=== PATIENT | male | born 1940 | race Caucasian/White ===

== ENCOUNTER 2016-05-08 11:54 | Inpatient (IN) | payer MEDICARE ==
[2016-05-08] MEDS ORDERED: SODIUM CHLORIDE 0.9% 1,000 ML IV STA ×2 (12:52→15:09)
--- NOTE | 2016-05-08 12:58 | ED ---
Weakness HPI - General Chief complaint: Weakness Stated complaint: DIZZINESSS, HYPERGLYCEMIA, POSS DEHYDRATION Time Seen by Provider: 05/08/16 12:15 Source: patient, family, RN notes reviewed Mode of arrival: wheelchair - History of Present Illness Initial comments: Is a 75-year-old male with a history of hypertension and heart disease and diabetes who states he's felt weak and dizzy last couple days. Decreased oral intake. He denies any fevers chills or sweats denies any chest pain any sore throat rhinorrhea earaches cough or phlegm production. No dysuria no hematuria he has had chills he states MD Complaint: generalized weakness - Related Data Home Medications Medication Instructions Recorded Confirmed Atorvastatin [Lipitor] 40 mg PO DAILY 01/18/16 05/08/16 Clopidogrel [Plavix] 75 mg PO DAILY 01/18/16 05/08/16 Folic Acid 1 mg PO DAILY 01/18/16 05/08/16 Levothyroxine Sodium [Synthroid] 75 mcg PO DAILY 01/18/16 05/08/16 Lisinopril [Zestril] 20 mg PO BID 01/18/16 05/08/16 Metoprolol Tartrate [Lopressor] 25 mg PO DAILY 01/18/16 05/08/16 Tamsulosin HCl [Flomax] 0.4 mg PO DAILY 01/18/16 05/08/16 glipiZIDE [Glucotrol] 5 mg PO DAILY 01/18/16 05/08/16 metFORMIN HCL 1,000 mg PO BID 01/18/16 05/08/16 Furosemide [Lasix] 40 mg PO DAILY 05/08/16 05/08/16 Potassium Chloride [Klor-Con 10] 10 meq PO DAILY 05/08/16 05/08/16 Previous Rx's Medication Instructions Recorded Magnesium 200 mg PO DAILY #14 tablet 01/18/16 Allergies Allergy/AdvReac Type Severity Reaction Status Date / Time No Known Allergies Allergy Verified 05/08/16 12:20 Review of Systems ROS Statement: Those systems with pertinent positive or pertinent negative responses have been documented in the HPI. ROS Other: All systems not noted in ROS Statement are negative. Past Medical History Past Medical History: Diabetes Mellitus, Hypertension Past Surgical History: Coronary Bypass/CABG Additional Past Surgical History / Comment(s): brain aneursym repair Past Psychological History: No Psychological Hx Reported Smoking Status: Never smoker Past Alcohol Use History: None Reported Past Drug Use History: None Reported General Exam - General Exam Comments Initial Comments: This is a well-developed well-nourished awake alert oriented 3 male General appearance: alert, in no apparent distress Head exam: Present: atraumatic, normocephalic, normal inspection Eye exam: Present: normal appearance, PERRL, EOMI. Absent: scleral icterus, conjunctival injection, periorbital swelling ENT exam: Present: mucous membranes dry Neck exam: Present: normal inspection. Absent: tenderness, meningismus, lymphadenopathy Respiratory exam: Present: normal lung sounds bilaterally. Absent: respiratory distress, wheezes, rales, rhonchi, stridor Cardiovascular Exam: Present: normal rhythm, tachycardia, normal heart sounds. Absent: systolic murmur, diastolic murmur, rubs, gallop, clicks GI/Abdominal exam: Present: soft, normal bowel sounds. Absent: distended, tenderness, guarding, rebound, rigid Extremities exam: Present: normal inspection, full ROM, normal capillary refill. Absent: tenderness, pedal edema, joint swelling, calf tenderness Back exam: Present: normal inspection Neurological exam: Present: alert, oriented X3, CN II-XII intact Psychiatric exam: Present: normal affect, normal mood Skin exam: Present: warm, dry, intact, normal color. Absent: rash Course Vital Signs 05/08/16 05/08/16 11:58 15:36 Temperature 96.9 F L Pulse Rate 101 H 79 Respiratory 18 18 Rate Blood Pressure 97/59 108/72 O2 Sat by Pulse 97 99 Oximetry - Reevaluation(s) Reevaluation #1: 05/08/16 17:35 Reevaluation patient several occasions reveals he still dizzy and weak. EKG Findings - EKG Results: EKG: interpreted by ERMD (Sinus rhythm rate 96 para 156 QRS duration 124 QT/QTC 394/497 her bundle-branch block left anterior fascicular block evidence of LVH) Medical Decision Making - Medical Decision Making Patient remains dizzy week with evidence of renal insufficiency. He hasn't didn 't get attempts at ambulation he was not successful he gets dizzy just sitting up in bed. I did discuss the findings with him and his family as well as with Dr. Nicholson. Patient be admitted for IV fluids and further consideration renal insufficiency. - Lab Data Result diagrams: 05/08/16 12:39 05/08/16 12:39 Lab Results 05/08/16 05/08/16 05/08/16 Range/Units 12:28 12:39 12:39 WBC 16.2 H (3.8-10.6) k/uL RBC 5.16 (4.30-5.90) m/uL Hgb 16.0 (13.0-17.5) gm/dL Hct 48.3 (39.0-53.0) % MCV 93.6 (80.0-100.0) fL MCH 31.0 (25.0-35.0) pg MCHC 33.1 (31.0-37.0) g/dL RDW 13.7 (11.5-15.5) % Plt Count 310 (150-450) k/uL Neutrophils % 80 % Lymphocytes % 12 % Monocytes % 5 % Eosinophils % 1 % Basophils % 1 % Neutrophils # 12.9 H (1.3-7.7) k/uL Lymphocytes # 2.0 (1.0-4.8) k/uL Monocytes # 0.9 (0-1.0) k/uL Eosinophils # 0.1 (0-0.7) k/uL Basophils # 0.2 (0-0.2) k/uL PT (9.0-12.0) sec INR (<1.1) APTT (22.0-30.0) sec Sodium (137-145) mmol/L Potassium (3.5-5.1) mmol/L Chloride (98-107) mmol/L Carbon Dioxide (22-30) mmol/L Anion Gap mmol/L BUN (9-20) mg/dL Creatinine (0.66-1.25) mg/dL Est GFR (MDRD) Af Amer (>60 ml/min/1.73 sqM) Est GFR (MDRD) Non-Af (>60 ml/min/1.73 sqM) Glucose (74-99) mg/dL POC Glucose (mg/dL) 174 H (75-99) mg/dL POC Glu Research Technician ID Kerri Addison Calcium (8.4-10.2) mg/dL Magnesium (1.6-2.3) mg/dL Total Bilirubin (0.2-1.3) mg/dL AST (17-59) U/L ALT (21-72) U/L Alkaline Phosphatase (38-126) U/L Total Creatine Kinase 66 (55-170) U/L CK-MB (CK-2) 0.6 (0.0-2.4) ng/mL CK-MB (CK-2) Rel Index 0.9 Troponin I 0.016 (0.000-0.034) ng/mL Total Protein (6.3-8.2) g/dL Albumin (3.5-5.0) g/dL Urine Color Urine Appearance (Clear) Urine pH (5.0-8.0) Ur Specific [place] (1.001-1.035) Urine Protein (Negative) Urine Glucose (UA) (Negative) Urine Ketones (Negative) Urine Blood (Negative) Urine Nitrate (Negative) Urine Bilirubin (Negative) Urine Urobilinogen (<2.0) mg/dL Ur Leukocyte Esterase (Negative) Acetone, Qual (Negative) 05/08/16 05/08/16 05/08/16 Range/Units 12:39 12:39 16:12 WBC (3.8-10.6) k/uL RBC (4.30-5.90) m/uL Hgb (13.0-17.5) gm/dL Hct (39.0-53.0) % MCV (80.0-100.0) fL MCH (25.0-35.0) pg MCHC (31.0-37.0) g/dL RDW (11.5-15.5) % Plt Count (150-450) k/uL Neutrophils % % Lymphocytes % % Monocytes % % Eosinophils % % Basophils % % Neutrophils # (1.3-7.7) k/uL Lymphocytes # (1.0-4.8) k/uL Monocytes # (0-1.0) k/uL Eosinophils # (0-0.7) k/uL Basophils # (0-0.2) k/uL PT 11.1 (9.0-12.0) sec INR 1.1 (<1.1) APTT 22.9 (22.0-30.0) sec Sodium 142 (137-145) mmol/L Potassium 4.4 (3.5-5.1) mmol/L Chloride 101 (98-107) mmol/L Carbon Dioxide 22 (22-30) mmol/L Anion Gap 19 mmol/L BUN 41 H (9-20) mg/dL Creatinine 2.30 H (0.66-1.25) mg/dL Est GFR (MDRD) Af Amer 34 (>60 ml/min/1.73 sqM) Est GFR (MDRD) Non-Af 28 (>60 ml/min/1.73 sqM) Glucose 176 H (74-99) mg/dL POC Glucose (mg/dL) (75-99) mg/dL POC Glu Research Technician ID Calcium 10.1 (8.4-10.2) mg/dL Magnesium 2.1 (1.6-2.3) mg/dL Total Bilirubin 1.3 (0.2-1.3) mg/dL AST 25 (17-59) U/L ALT 42 (21-72) U/L Alkaline Phosphatase 143 H (38-126) U/L Total Creatine Kinase (55-170) U/L CK-MB (CK-2) (0.0-2.4) ng/mL CK-MB (CK-2) Rel Index Troponin I (0.000-0.034) ng/mL Total Protein 8.3 H (6.3-8.2) g/dL Albumin 4.7 (3.5-5.0) g/dL Urine Color Yellow Urine Appearance Clear (Clear) Urine pH 5.0 (5.0-8.0) Ur Specific [place] 1.010 (1.001-1.035) Urine Protein Negative (Negative) Urine Glucose (UA) Negative (Negative) Urine Ketones Negative (Negative) Urine Blood Negative (Negative) Urine Nitrate Negative (Negative) Urine Bilirubin Negative (Negative) Urine Urobilinogen <2.0 (<2.0) mg/dL Ur Leukocyte Esterase Negative (Negative) Acetone, Qual Negative (Negative) - Radiology Data Radiology results: report reviewed (X-rays are nonspecific no evidence of acute findings.), image reviewed Disposition Clinical Impression: Acute renal insufficiency, Dehydration, Failure to thrive in adult, Dizziness Disposition: ADMITTED IP TO THIS [facility] Condition: Stable
[2016-05-08 13:09] LABS: Basophils # (A) 0.2 k/uL (0-0.2); Basophils % (A) 1 %; CH 32.4; CHCM 34.8; Eosinophils # (A) 0.1 k/uL (0-0.7); Eosinophils % (A) 1 %; HCT 48.3 % (39.0-53.0); HDW 3.04; Luc # (Auto) 0.13; Luc % (Auto) 1; Lymphocytes % (A) 12 %; MCHC 33.1 g/dL (31.0-37.0); MCV 93.6 fL (80.0-100.0); Mean Platelet Volume 8.6; Monocytes # (A) 0.9 k/uL (0-1.0); Monocytes % (A) 5 %; Neutrophils # (A) 12.9 k/uL (1.3-7.7); Neutrophils % (A) 80 %; RBC 5.16 m/uL (4.30-5.90); RDW 13.7 % (11.5-15.5); WBC 16.2 k/uL (3.8-10.6); WBC (Perox) 15.61
[2016-05-08 13:17] LABS: INR 1.1 (<1.1); Partial Thromboplastin Time 22.9 sec (22.0-30.0); Prothrombin Time 11.1 sec (9.0-12.0)
[2016-05-08 13:20] LABS: ALT 42 U/L (21-72); AST 25 U/L (17-59); Alkaline Phosphatase 143 U/L (38-126); Anion Gap 19 mmol/L; Blood Urea Nitrogen 41 mg/dL (9-20); Calcium 10.1 mg/dL (8.4-10.2); Carbon Dioxide 22 mmol/L (22-30); Chloride 101 mmol/L (98-107); Glucose 176 mg/dL (74-99); Magnesium 2.1 mg/dL (1.6-2.3); Non-African American GFR(MDRD) 28 (>60 ml/min/1.73 sqM); Potassium 4.4 mmol/L (3.5-5.1); Sodium 142 mmol/L (137-145); Total Bilirubin 1.3 mg/dL (0.2-1.3); Total Protein 8.3 g/dL (6.3-8.2)
--- NOTE | 2016-05-08 13:22 | XR ---
EXAMINATION TYPE: XR chest 2V DATE OF EXAM: 05/08/2016 1:13 PM COMPARISON: NONE HISTORY: Weakness FINDINGS: The lungs are clear and there is no pneumothorax, pleural effusion, or focal pneumonia. Hypertrophic change of the spine noted. Arthropathy of the shoulders. Postsurgical change involving the mediastin um. Heart size is mildly prominent. Surgical clips in the abdomen. Underlying COPD suggested. IMPRESSION: 1. No acute process.
[2016-05-08 13:45] LABS: Creatine Kinase MB 0.6 ng/mL (0.0-2.4); Troponin I 0.016 ng/mL (0.000-0.034)
[2016-05-08 14:52] LABS: Glucose,Whole Blood 174 mg/dL (75-99)
[2016-05-08 16:23] LABS: Appearance,Urine Clear (Clear); Bilirubin,Urine Negative (Negative); Glucose,Urine (UA) Negative (Negative); Ketones,Urine Negative (Negative); Leukocyte Esterase,Urine Negative (Negative); Nitrite,Urine Negative (Negative); Protein,Urine Negative (Negative); UA Billing (MACRO vs. MICRO) CHEM; Urobilinogen,Urine <2.0 mg/dL (<2.0)
[2016-05-08] MEDS ORDERED: NALOXONE 0.4 MG/ML 1 ML VIAL IV PRN (17:38)
[2016-05-08 19:56] VITALS: BMI 28.0
[2016-05-08 20:40] LABS: Glucose,Whole Blood 120 mg/dL (75-99)
[2016-05-08] MEDS: INSULIN LISPRO (humaLOG) 300 UNIT/3 ML VIAL SQ SCH (21:14)
[2016-05-08] MEDS: metFORMIN 500 MG TAB PO SCH (21:15)
[2016-05-09] MEDS: LEVOTHYROXINE 75 MCG TAB PO SCH (06:32)
[2016-05-09 06:57] LABS: Glucose,Whole Blood 127 mg/dL (75-99)
[2016-05-09] MEDS: INSULIN LISPRO (humaLOG) 300 UNIT/3 ML VIAL SQ SCH ×4 (07:30→21:22)
[2016-05-09] MEDS: glipiZIDE 5 MG TAB PO SCH (07:51)
[2016-05-09] MEDS: MAGNESIUM OXIDE 250 MG TAB PO SCH (07:51)
[2016-05-09] MEDS: CLOPIDOGREL 75 MG TAB PO SCH (07:51)
[2016-05-09] MEDS: POTASSIUM CHLORIDE ER 10 MEQ TAB.ER.PRT PO SCH (07:51)
[2016-05-09] MEDS: TAMSULOSIN 0.4 MG CAP.ER.24H PO SCH (07:51)
[2016-05-09] MEDS: FOLIC ACID 1 MG TAB PO SCH (07:51)
[2016-05-09] MEDS: metFORMIN 500 MG TAB PO SCH ×2 (07:51→19:09)
[2016-05-09] MEDS: ATORVASTATIN 40 MG TAB PO SCH (07:51)
[2016-05-09 09:23] LABS: Basophils % (A) 0 %; CHCM 34.3; Eosinophils # (A) 0.2 k/uL (0-0.7); Eosinophils % (A) 2 %; HCT 42.8 % (39.0-53.0); HDW 3.02; HGB 14.3 gm/dL (13.0-17.5); Luc # (Auto) 0.08; Luc % (Auto) 1; Lymphocytes # (A) 1.3 k/uL (1.0-4.8); Lymphocytes % (A) 14 %; MCH 31.3 pg (25.0-35.0); MCHC 33.3 g/dL (31.0-37.0); MCV 93.9 fL (80.0-100.0); Mean Platelet Volume 7.5; Monocytes # (A) 0.4 k/uL (0-1.0); Monocytes % (A) 4 %; Neutrophils # (A) 7.3 k/uL (1.3-7.7); Neutrophils % (A) 79 %; RBC 4.56 m/uL (4.30-5.90); RDW 13.6 % (11.5-15.5); WBC 9.2 k/uL (3.8-10.6); WBC (Perox) 9.48
[2016-05-09 09:37] LABS: Anion Gap 11 mmol/L; Blood Urea Nitrogen 33 mg/dL (9-20); Calcium 8.7 mg/dL (8.4-10.2); Carbon Dioxide 23 mmol/L (22-30); Chloride 107 mmol/L (98-107); Glucose 154 mg/dL (74-99); Non-African American GFR(MDRD) 51 (>60 ml/min/1.73 sqM); Potassium 4.3 mmol/L (3.5-5.1); Sodium 141 mmol/L (137-145)
[2016-05-09] MEDS ORDERED: SODIUM CHLORIDE 0.9% 250 ML IV ONE (11:26)
[2016-05-09] MEDS: METOPROLOL TARTRATE 25 MG TAB PO SCH (11:32)
[2016-05-09] MEDS: SODIUM CHLORIDE 0.9% 1,000 ML IV SCH (11:35)
[2016-05-09 11:57] LABS: Glucose,Whole Blood 78 mg/dL (75-99)
[2016-05-09 12:21] LABS: Hemoglobin A1C 6.2 % (4.2-6.1)
[2016-05-09 17:21] LABS: Glucose,Whole Blood 69 mg/dL (75-99)
--- NOTE | 2016-05-09 17:21 | P.HPIM ---
History of Present Illness H&P Date: 05/09/16 Chief Complaint: Weakness and dizziness Patient is 75-year-old male with medical history significant for type 2 diabetes mellitus, coronary artery disease, hyperlipidemia, hypothyroidism, BPH, and hypertension presenting to the emergency department with complaints of weakness and dizziness 3 days. Admission lab work with evidence of acute renal failure and dehydration supported by positive orthostatic hypotension. Patient was given 1 L of IV fluids and admitted to the observation unit for IV hydration. Upon examination, patient continues to complain of dizziness and lightheadedness when going from a supine to sitting position. Patient states he feels very weak. Denies chills, nausea, vomiting, shortness of breath, chest pain, or abdominal pain. Denies constipation or diarrhea. Labs this morning with improvement in renal function. Afebrile. Past Medical History Past Medical History: Diabetes Mellitus, Hypertension History of Any Multi-Drug Resistant Organisms: None Reported Past Surgical History: Coronary Bypass/CABG Additional Past Surgical History / Comment(s): brain aneursym repair Past Psychological History: No Psychological Hx Reported Smoking Status: Never smoker Past Alcohol Use History: None Reported Past Drug Use History: None Reported Medications and Allergies Home Medications Medication Instructions Recorded Confirmed Type Atorvastatin [Lipitor] 40 mg PO DAILY 01/18/16 05/08/16 History Clopidogrel [Plavix] 75 mg PO DAILY 01/18/16 05/08/16 History Folic Acid 1 mg PO DAILY 01/18/16 05/08/16 History Levothyroxine Sodium [Synthroid] 75 mcg PO DAILY 01/18/16 05/08/16 History Lisinopril [Zestril] 20 mg PO BID 01/18/16 05/08/16 History Metoprolol Tartrate [Lopressor] 25 mg PO DAILY 01/18/16 05/08/16 History Tamsulosin HCl [Flomax] 0.4 mg PO DAILY 01/18/16 05/08/16 History glipiZIDE [Glucotrol] 5 mg PO DAILY 01/18/16 05/08/16 History metFORMIN HCL 1,000 mg PO BID 01/18/16 05/08/16 History Furosemide [Lasix] 40 mg PO DAILY 05/08/16 05/08/16 History Potassium Chloride [Klor-Con 10] 10 meq PO DAILY 05/08/16 05/08/16 History Allergies Allergy/AdvReac Type Severity Reaction Status Date / Time No Known Allergies Allergy Verified 05/08/16 12:20 Physical Exam Vitals: Vital Signs Temp Pulse Pulse Pulse Pulse Pulse Pulse 05/09/16 16:00 84 97 90 106 H 83 05/09/16 15:37 97.6 F 84 05/09/16 12:00 97.1 F L 97 90 106 H 83 05/09/16 07:59 97 05/09/16 07:48 97.6 F 97 05/09/16 04:00 97.6 F 87 05/09/16 00:00 05/08/16 20:00 05/08/16 19:47 97.8 F 96 05/08/16 18:28 97.7 F 89 05/08/16 17:50 98.7 F 79 Resp BP BP BP BP BP BP 05/09/16 16:00 16 05/09/16 15:37 16 95/59 05/09/16 12:00 18 105/69 110/66 97/60 05/09/16 07:59 18 05/09/16 07:48 18 92/65 84/56 05/09/16 04:00 16 111/65 05/09/16 00:00 16 05/08/16 20:00 16 05/08/16 19:47 16 94/59 05/08/16 18:28 18 112/62 05/08/16 17:50 18 133/79 Pulse Ox 05/09/16 16:00 05/09/16 15:37 96 05/09/16 12:00 95 05/09/16 07:59 05/09/16 07:48 97 05/09/16 04:00 97 05/09/16 00:00 05/08/16 20:00 05/08/16 19:47 95 05/08/16 18:28 98 05/08/16 17:50 98 Intake and Output 05/09/16 05/09/16 05/09/16 06:59 14:59 22:59 Intake Total 336 Output Total 100 Balance 236 Intake: Oral 336 Output: Urine 100 Other: # Voids 1 1 GENERAL: Pt awake and alert, well-nourished, and in no acute distress. HEAD: Atraumatic, normocephalic. EYES: Pupils equal, round, and reactive to light, extraocular movements intact, sclera anicteric, conjunctiva are normal. ENT: Moist mucous membranes. NECK:Supple without lymphadenopathy or JVD. LUNGS: Breath sounds clear to auscultation bilaterally. No wheezes, rales, or rhonchi. HEART: Heart S1, S2, no S3 or S4. Regular rate and rhythm. No murmurs, rubs or gallops. ABDOMEN: Soft, nontender, nondistended, normoactive bowel sounds. No guarding, no rebound. No masses or organomegaly appreciated. EXTREMITIES: 2+ peripheral pulses. No edema. No calf tenderness. NEUROLOGICAL: Pt oriented x 3. Cranial nerves II through XII grossly intact. Strength and sensation grossly intact. PSYCH: Normal mood, normal affect. SKIN: Warm, dry, intact. Normal turgor. No rashes or lesions. Results CBC & Chem 7: 05/09/16 09:02 05/09/16 09:02 Labs: Abnormal Lab Results - Last 24 Hours (Table) 05/08/16 05/09/16 05/09/16 Range/Units 20:37 06:55 09:02 BUN 33 H (9-20) mg/dL Creatinine 1.37 H (0.66-1.25) mg/dL Glucose 154 H (74-99) mg/dL POC Glucose (mg/dL) 120 H 127 H (75-99) mg/dL Chest x-ray: report reviewed (No acute process.) Thrombosis Risk Factor Assmnt - DVT/VTE Prophylaxis DVT/VTE Prophylaxis: Low risk, early ambulation encouraged - Choose All That Apply Each Risk Factor Represents 2 Points: Age 61-74 years Thrombosis Risk Factor Assessment Total Risk Factor Score: 2 Thrombosis Risk Factor Assessment Level: Low Risk Assessment and Plan Plan: Impression and plan: 1. Dehydration with evidence of acute renal failure, present on admission, improved. 2. Diabetes mellitus, type II. 3. History of hypertension. 4. Coronary artery disease with history of coronary artery bypass grafting. 5. History of brain aneurysm repair. 6. History of hyperlipidemia. 7. History of hypothyroidism. 8. BPH. Continue IV hydration, will give patient a 250 mL normal saline fluid bolus. Orthostatics every shift. Maintain fall precautions. Continue current medications, will hold Lasix, lisinopril, and metoprolol. Consult physical therapy. Repeat CBC and BMP in a.m. The above impression and plan have been discussed and directed by Dr. Carpenter. Fred BANERJEE acting as scribe for Dr. Carpenter.
[2016-05-09 17:24] LABS: Glucose,Whole Blood 77 mg/dL (75-99)
[2016-05-09 20:54] LABS: Glucose,Whole Blood 135 mg/dL (75-99)
[2016-05-10 06:36] LABS: Glucose,Whole Blood 128 mg/dL (75-99)
[2016-05-10] MEDS: LEVOTHYROXINE 75 MCG TAB PO SCH (06:56)
[2016-05-10 08:25] LABS: Anion Gap 10 mmol/L; Blood Urea Nitrogen 21 mg/dL (9-20); Calcium 8.4 mg/dL (8.4-10.2); Carbon Dioxide 21 mmol/L (22-30); Chloride 107 mmol/L (98-107); Glucose 118 mg/dL (74-99); Non-African American GFR(MDRD) >60 (>60 ml/min/1.73 sqM); Sodium 138 mmol/L (137-145)
[2016-05-10 08:29] LABS: Basophils % (A) 0 %; CHCM 34.5; Eosinophils # (A) 0.1 k/uL (0-0.7); Eosinophils % (A) 2 %; HCT 40.4 % (39.0-53.0); HDW 3.04; HGB 13.6 gm/dL (13.0-17.5); Luc # (Auto) 0.11; Luc % (Auto) 1; Lymphocytes # (A) 1.6 k/uL (1.0-4.8); Lymphocytes % (A) 19 %; MCH 31.4 pg (25.0-35.0); MCHC 33.6 g/dL (31.0-37.0); MCV 93.3 fL (80.0-100.0); Mean Platelet Volume 7.9; Monocytes # (A) 0.5 k/uL (0-1.0); Monocytes % (A) 7 %; Neutrophils % (A) 71 %; RBC 4.33 m/uL (4.30-5.90); RDW 13.4 % (11.5-15.5); WBC 8.4 k/uL (3.8-10.6); WBC (Perox) 8.74
[2016-05-10] MEDS: metFORMIN 500 MG TAB PO SCH ×2 (09:05→20:46)
[2016-05-10] MEDS: METOPROLOL TARTRATE 25 MG TAB PO SCH (09:05)
[2016-05-10] MEDS: POTASSIUM CHLORIDE ER 10 MEQ TAB.ER.PRT PO SCH (09:06)
[2016-05-10] MEDS: ATORVASTATIN 40 MG TAB PO SCH (09:06)
[2016-05-10] MEDS: MAGNESIUM OXIDE 250 MG TAB PO SCH (09:06)
[2016-05-10] MEDS: TAMSULOSIN 0.4 MG CAP.ER.24H PO SCH (09:06)
[2016-05-10] MEDS: glipiZIDE 5 MG TAB PO SCH (09:06)
[2016-05-10] MEDS: CLOPIDOGREL 75 MG TAB PO SCH (09:06)
[2016-05-10] MEDS: INSULIN LISPRO (humaLOG) 300 UNIT/3 ML VIAL SQ SCH ×4 (09:06→21:41)
[2016-05-10 12:17] LABS: Glucose,Whole Blood 105 mg/dL (75-99)
[2016-05-10] MEDS: FOLIC ACID 1 MG TAB PO SCH (12:25)
--- NOTE | 2016-05-10 13:04 | P.PN ---
Subjective Principal diagnosis: Acute renal failure Patient is 75-year-old male with medical history significant for type 2 diabetes mellitus, coronary artery disease, hyperlipidemia, hypothyroidism, BPH, and hypertension presenting to the emergency department with complaints of weakness and dizziness 3 days. Admission lab work with evidence of acute renal failure and dehydration supported by positive orthostatic hypotension. Patient was given 1 L of IV fluids and admitted to the observation unit for IV hydration. Upon examination, patient states he feels better than yesterday but continues to complain of weakness and lightheadedness. Denies chills, nausea, vomiting, shortness of breath, chest pain, or abdominal pain. Denies constipation or diarrhea. Patient states his appetite has improved. Objective - Vital Signs Vital signs: Vital Signs Temp 98 F 05/10/16 11:26 Pulse 74 05/10/16 11:26 Resp 18 05/10/16 11:26 BP 114/66 05/10/16 11:26 Pulse Ox 95 05/10/16 11:26 Intake & Output 05/09/16 05/10/16 05/10/16 18:59 06:59 18:59 Intake Total 736 Output Total 475 350 Balance 261 -350 Weight 83.5 kg Intake: Oral 736 Output: Urine 475 350 Other: Voiding Method Urinal # Voids 1 1 1 - Exam GENERAL: Pt awake and alert, well-nourished, and in no acute distress. HEAD: Atraumatic, normocephalic. EYES: Pupils equal, round, and reactive to light, extraocular movements intact, sclera anicteric, conjunctiva are normal. ENT: Moist mucous membranes. NECK:Supple without lymphadenopathy or JVD. LUNGS: Breath sounds clear to auscultation bilaterally. No wheezes, rales, or rhonchi. HEART: Heart S1, S2, no S3 or S4. Regular rate and rhythm. No murmurs, rubs or gallops. ABDOMEN: Soft, nontender, nondistended, normoactive bowel sounds. No guarding, no rebound. No masses or organomegaly appreciated. EXTREMITIES: 2+ peripheral pulses. No edema. No calf tenderness. NEUROLOGICAL: Pt oriented x 3. Cranial nerves II through XII grossly intact. Strength and sensation grossly intact. PSYCH: Normal mood, normal affect. SKIN: Warm, dry, intact. Normal turgor. No rashes or lesions. - Labs CBC & Chem 7: 01/10/17 07:38 05/10/16 07:38 Labs: Abnormal Lab Results - Last 24 Hours (Table) 05/09/16 05/09/16 05/10/16 Range/Units 16:57 20:40 06:31 Carbon Dioxide (22-30) mmol/L BUN (9-20) mg/dL Glucose (74-99) mg/dL POC Glucose (mg/dL) 69 L 135 H 128 H (75-99) mg/dL 05/10/16 05/10/16 Range/Units 07:38 12:11 Carbon Dioxide 21 L (22-30) mmol/L BUN 21 H (9-20) mg/dL Glucose 118 H (74-99) mg/dL POC Glucose (mg/dL) 105 H (75-99) mg/dL Assessment and Plan Plan: Impression and plan: 1. Dehydration with evidence of acute renal failure, present on admission, improved. Orthostatic vitals positive. 2. Diabetes mellitus, type II. 3. History of hypertension. 4. Coronary artery disease with history of coronary artery bypass grafting. 5. History of brain aneurysm repair. 6. History of hyperlipidemia. 7. History of hypothyroidism. 8. BPH. Continue to monitor patient. Continue IV hydration. Continue current medications. Continue orthostatics every shift. Maintain fall precautions. Consult physical therapy. Repeat CBC and BMP in a.m. The above impression and plan have been discussed and directed by Dr. Carpenter. Fred BANERJEE acting as scribe for Dr. Carpenter.
[2016-05-10 17:23] LABS: Glucose,Whole Blood 93 mg/dL (75-99)
[2016-05-10] MEDS: SODIUM CHLORIDE 0.9% 1,000 ML IV SCH ×4 (19:54→21:42)
[2016-05-10] MEDS: FAMOTIDINE 20 MG TAB PO SCH (20:46)
[2016-05-10 21:43] LABS: Glucose,Whole Blood 91 mg/dL (75-99)
[2016-05-11] MEDS: SODIUM CHLORIDE 0.9% 1,000 ML IV SCH ×3 (04:00→13:21)
[2016-05-11] MEDS: LEVOTHYROXINE 75 MCG TAB PO SCH (05:29)
[2016-05-11 07:19] LABS: Glucose,Whole Blood 74 mg/dL (75-99)
[2016-05-11] MEDS: TAMSULOSIN 0.4 MG CAP.ER.24H PO SCH (08:34)
[2016-05-11] MEDS: metFORMIN 500 MG TAB PO SCH ×2 (08:34→17:27)
[2016-05-11] MEDS: CLOPIDOGREL 75 MG TAB PO SCH (08:34)
[2016-05-11] MEDS: POTASSIUM CHLORIDE ER 10 MEQ TAB.ER.PRT PO SCH (08:34)
[2016-05-11] MEDS: ATORVASTATIN 40 MG TAB PO SCH (08:34)
[2016-05-11] MEDS: INSULIN LISPRO (humaLOG) 300 UNIT/3 ML VIAL SQ SCH ×4 (08:34→20:58)
[2016-05-11] MEDS: METOPROLOL TARTRATE 25 MG TAB PO SCH (08:34)
[2016-05-11] MEDS: MAGNESIUM OXIDE 250 MG TAB PO SCH (08:34)
[2016-05-11] MEDS: glipiZIDE 5 MG TAB PO SCH (08:34)
[2016-05-11 11:55] LABS: Glucose,Whole Blood 75 mg/dL (75-99)
[2016-05-11] MEDS: FOLIC ACID 1 MG TAB PO SCH (13:17)
--- NOTE | 2016-05-11 14:42 | P.PN ---
Subjective Principal diagnosis: Acute renal failure Patient is 75-year-old male with medical history significant for type 2 diabetes mellitus, coronary artery disease, hyperlipidemia, hypothyroidism, BPH, and hypertension presenting to the emergency department with complaints of weakness and dizziness 3 days. Admission lab work with evidence of acute renal failure and dehydration supported by positive orthostatic hypotension. Patient was given 1 L of IV fluids and admitted for IV hydration. Upon examination, patient states he feels better than yesterday but continues to complain of weakness and lightheadedness. Denies chills, nausea, vomiting, shortness of breath, chest pain, or abdominal pain. Denies constipation or diarrhea. Patient states his appetite has improved. Objective - Vital Signs Vital signs: Vital Signs Temp 98.7 F 05/11/16 07:00 Pulse 75 05/11/16 07:00 Resp 17 05/11/16 07:00 BP 121/57 05/11/16 07:00 Pulse Ox 99 05/11/16 07:00 Intake & Output 05/10/16 05/11/16 05/11/16 18:59 06:59 18:59 Output Total 100 400 Balance -100 -400 Output: Urine 100 400 Other: Voiding Method Urinal Urinal # Voids 1 1 # Bowel Movements 1 1 - Exam GENERAL: Pt awake and alert, well-nourished, and in no acute distress. HEAD: Atraumatic, normocephalic. EYES: Pupils equal, round, and reactive to light, extraocular movements intact, sclera anicteric, conjunctiva are normal. ENT: Moist mucous membranes. NECK:Supple without lymphadenopathy or JVD. LUNGS: Breath sounds clear to auscultation bilaterally. No wheezes, rales, or rhonchi. HEART: Heart S1, S2, no S3 or S4. Regular rate and rhythm. No murmurs, rubs or gallops. ABDOMEN: Soft, nontender, nondistended, normoactive bowel sounds. No guarding, no rebound. No masses or organomegaly appreciated. EXTREMITIES: 2+ peripheral pulses. No edema. No calf tenderness. NEUROLOGICAL: Pt oriented x 3. Cranial nerves II through XII grossly intact. Strength and sensation grossly intact. PSYCH: Normal mood, normal affect. SKIN: Warm, dry, intact. Normal turgor. No rashes or lesions. - Labs CBC & Chem 7: 05/10/16 07:38 05/10/16 07:38 Labs: Abnormal Lab Results - Last 24 Hours (Table) 05/11/16 Range/Units 07:18 POC Glucose (mg/dL) 74 L (75-99) mg/dL Assessment and Plan Plan: Impression and plan: 1. Dehydration with evidence of acute renal failure, present on admission, resolved. Orthostatic vitals negative. 2. Diabetes mellitus, type II. 3. History of hypertension. 4. Coronary artery disease with history of coronary artery bypass grafting. 5. History of brain aneurysm repair. 6. History of hyperlipidemia. 7. History of hypothyroidism. 8. BPH. Continue to monitor patient. Continue IV hydration. Continue current medications. Maintain fall precautions. Physical therapy has seen and evaluated patient and is recommending home with home care versus ECF. We'll reevaluate in a.m. Repeat CBC and BMP in a.m. The above impression and plan have been discussed and directed by Dr. Carpenter. Fred BANERJEE acting as scribe for Dr. Carpenter.
[2016-05-11 17:09] LABS: Glucose,Whole Blood 59 mg/dL (75-99)
[2016-05-11 17:27] LABS: Glucose,Whole Blood 68 mg/dL (75-99)
[2016-05-11 17:46] LABS: Glucose,Whole Blood 84 mg/dL (75-99)
[2016-05-11] MEDS: FAMOTIDINE 20 MG TAB PO SCH (20:51)
[2016-05-11 20:56] LABS: Glucose,Whole Blood 104 mg/dL (75-99)
[2016-05-12] MEDS: SODIUM CHLORIDE 0.9% 1,000 ML IV SCH ×3 (00:45→06:12)
[2016-05-12] MEDS: LEVOTHYROXINE 75 MCG TAB PO SCH (06:12)
[2016-05-12 07:29] LABS: Glucose,Whole Blood 105 mg/dL (75-99)
[2016-05-12 07:53] VITALS: RESP 19
[2016-05-12] MEDS: INSULIN LISPRO (humaLOG) 300 UNIT/3 ML VIAL SQ SCH ×2 (08:13→14:00)
[2016-05-12] MEDS: glipiZIDE 5 MG TAB PO SCH (08:17)
[2016-05-12] MEDS: TAMSULOSIN 0.4 MG CAP.ER.24H PO SCH (08:17)
[2016-05-12] MEDS: MAGNESIUM OXIDE 250 MG TAB PO SCH (08:17)
[2016-05-12] MEDS: metFORMIN 500 MG TAB PO SCH (08:17)
[2016-05-12] MEDS: METOPROLOL TARTRATE 25 MG TAB PO SCH (08:17)
[2016-05-12] MEDS: POTASSIUM CHLORIDE ER 10 MEQ TAB.ER.PRT PO SCH (08:17)
[2016-05-12] MEDS: CLOPIDOGREL 75 MG TAB PO SCH (08:17)
[2016-05-12] MEDS: ATORVASTATIN 40 MG TAB PO SCH (08:17)
[2016-05-12 08:50] LABS: Basophils % (A) 1 %; CH 32.2; CHCM 35.7; Eosinophils # (A) 0.2 k/uL (0-0.7); Eosinophils % (A) 3 %; HCT 40.2 % (39.0-53.0); HDW 3.12; HGB 13.7 gm/dL (13.0-17.5); Luc # (Auto) 0.09; Luc % (Auto) 1; Lymphocytes # (A) 1.6 k/uL (1.0-4.8); Lymphocytes % (A) 23 %; MCH 30.8 pg (25.0-35.0); MCV 90.6 fL (80.0-100.0); Mean Platelet Volume 7.9; Monocytes # (A) 0.4 k/uL (0-1.0); Monocytes % (A) 6 %; Neutrophils # (A) 4.5 k/uL (1.3-7.7); Neutrophils % (A) 66 %; RBC 4.43 m/uL (4.30-5.90); RDW 13.3 % (11.5-15.5); WBC 6.9 k/uL (3.8-10.6); WBC (Perox) 6.65
[2016-05-12 08:58] LABS: Anion Gap 10 mmol/L; Blood Urea Nitrogen 11 mg/dL (9-20); Calcium 8.6 mg/dL (8.4-10.2); Carbon Dioxide 22 mmol/L (22-30); Chloride 108 mmol/L (98-107); Glucose 101 mg/dL (74-99); Non-African American GFR(MDRD) >60 (>60 ml/min/1.73 sqM); Potassium 4.6 mmol/L (3.5-5.1); Sodium 140 mmol/L (137-145)
[2016-05-12 12:43] LABS: Glucose,Whole Blood 161 mg/dL (75-99)
--- NOTE | 2016-05-12 12:49 | P.DS ---
Providers Date of admission: 05/10/16 15:31 Expected date of discharge: 05/12/16 Attending physician: Alec Carpenter Primary care physician: [facility] Course: Patient is 75-year-old male with medical history significant for type 2 diabetes mellitus, coronary artery disease, hyperlipidemia, hypothyroidism, BPH, and hypertension presenting to the emergency department with complaints of generalized weakness and lightheadedness. Patient was found to have evidence of acute renal failure and dehydration. Patient was evaluated by physical therapy who recommended that patient be discharged home with home care. Patient improved with IV fluids and supportive treatment and was deemed stable for discharge with follow-up in the outpatient setting. Discharge diagnoses: 1. Dehydration with evidence of acute renal failure, present on admission, resolved. 2. Diabetes mellitus, type II. 3. History of hypertension. 4. Coronary artery disease with history of coronary artery bypass grafting. 5. History of brain aneurysm repair. 6. History of hyperlipidemia. 7. History of hypothyroidism. 8. BPH. The above impression and plan have been discussed and directed by Dr. Carpenter. Fred BANERJEE acting as scribe for Dr. Carpenter. Pertinent Studies: EKG; chest x-ray Patient Condition at Discharge: Good Plan - Discharge Summary Discharge Medication List Atorvastatin [Lipitor] 40 mg PO DAILY 01/18/16 [History] Clopidogrel [Plavix] 75 mg PO DAILY 01/18/16 [History] Folic Acid 1 mg PO DAILY 01/18/16 [History] Levothyroxine Sodium [Synthroid] 75 mcg PO DAILY 01/18/16 [History] Magnesium 200 mg PO DAILY #14 tablet 01/18/16 [Rx] Metoprolol Tartrate [Lopressor] 25 mg PO DAILY 01/18/16 [History] Tamsulosin HCl [Flomax] 0.4 mg PO DAILY 01/18/16 [History] glipiZIDE [Glucotrol] 5 mg PO DAILY 01/18/16 [History] metFORMIN HCL 1,000 mg PO BID 01/18/16 [History] Follow up Appointment(s)/Referral(s): Alec Carpenter Jr, DO [Primary Care Provider] - 1-2 days [facility], [NON-STAFF] - Discharge Disposition: HOME WITH HOME HEALTH SERVICES
[2016-05-12] MEDS: FOLIC ACID 1 MG TAB PO SCH (12:59)
[2016-05-12 14:48] VITALS: BP 115/64; PULSE 67; TEMP 97.9
== END 2016-05-12 17:23 | disposition home health service (06) | DRG 684 ==
LOC: EC 11:54 → 3OBS 17:44 → OBSVTOIN 05-10 15:31 → 4MS4W 05-10 18:23
PROVIDERS: ADMIT Family Medicine; ATTEND Family Medicine
DX: N17.9 Acute kidney failure, unspecified (principal); E11.65 Type 2 diabetes mellitus with hyperglycemia; E03.9 Hypothyroidism, unspecified; E78.5 Hyperlipidemia, unspecified; E86.0 Dehydration; I10 Essential (primary) hypertension; I25.10 Atherosclerotic heart disease of native coronary artery without angina pectoris; I95.1 Orthostatic hypotension; N40.0 Benign prostatic hyperplasia without lower urinary tract symptoms; R62.7 Adult failure to thrive; Z95.1 Presence of aortocoronary bypass graft; Z79.899 Other long term (current) drug therapy; Z79.84 Long term (current) use of oral hypoglycemic drugs; Z79.02 Long term (current) use of antithrombotics/antiplatelets
CPT/HCPCS: 36415; 51701; 71020; 80048; 80053; 81003; 82009; 82550; 82553; 83036; 83735; 84484; 85025; 85610; 85730; 93005; 96360; 96361; 99285

== ENCOUNTER 2016-05-24 23:43 | Emergency (ER) | payer MEDICARE ==
[2016-05-25 00:07] VITALS: RESP 18; TEMP 98.3
[2016-05-25] MEDS ORDERED: HYDROmorphone 1 MG/ML 1 ML SYRINGE IVP STA (00:29)
[2016-05-25 01:31] LABS: Basophils % (A) 0 %; CHCM 35.4; Eosinophils # (A) 0.2 k/uL (0-0.7); Eosinophils % (A) 3 %; HCT 37.7 % (39.0-53.0); HDW 3.17; HGB 12.8 gm/dL (13.0-17.5); Luc # (Auto) 0.07; Luc % (Auto) 1; Lymphocytes # (A) 1.4 k/uL (1.0-4.8); Lymphocytes % (A) 18 %; MCH 30.8 pg (25.0-35.0); MCHC 33.9 g/dL (31.0-37.0); MCV 90.8 fL (80.0-100.0); Mean Platelet Volume 7.7; Monocytes # (A) 0.4 k/uL (0-1.0); Monocytes % (A) 5 %; Neutrophils # (A) 5.8 k/uL (1.3-7.7); Neutrophils % (A) 73 %; RBC 4.16 m/uL (4.30-5.90); RDW 14.4 % (11.5-15.5); WBC 7.9 k/uL (3.8-10.6); WBC (Perox) 8.74
[2016-05-25 01:40] LABS: Anion Gap 13 mmol/L; Blood Urea Nitrogen 16 mg/dL (9-20); Calcium 8.8 mg/dL (8.4-10.2); Carbon Dioxide 20 mmol/L (22-30); Chloride 104 mmol/L (98-107); Glucose 87 mg/dL (74-99); Non-African American GFR(MDRD) >60 (>60 ml/min/1.73 sqM); Potassium 4.2 mmol/L (3.5-5.1); Sodium 137 mmol/L (137-145)
--- NOTE | 2016-05-25 02:18 | CT ---
EXAMINATION TYPE: CT abdomen pelvis wo con DATE OF EXAM: 05/25/2016 1:47 AM COMPARISON: NONE HISTORY: fall, lower back pain CT DLP: 1605.20 mGycm Automated exposure control for dose reduction was used. TECHNIQUE: Helical acquisition of images was performed from the lung bases through the pelvis. FINDINGS: The heart is enlarged. There is some patchy atelectasis at the lung bases. There is no definite pleur al effusion. Liver shows no focal defects. Spleen and pancreas appear normal. There are clips from cholecystectomy . Bile ducts are not dilated. There is no adrenal mass. Kidneys show no hydronephrosis. There is no r etroperitoneal adenopathy. There is no ascites. I see no intestinal wall thickening. There are multip le sigmoid diverticula. Bladder distends smoothly. There is no evidence of a pelvic mass. There are s pondylotic changes in the lumbar spine. I see no compression fracture. The pelvic ring is intact. IMPRESSION: MILD ATHEROSCLEROTIC VASCULAR DISEASE. MILD ATELECTASIS AT THE LUNG BASES. CARDIOMEGALY. NO ACUTE ABN ORMALITY SEEN WITHIN THE ABDOMEN AND PELVIS.
--- NOTE | 2016-05-25 02:20 | CT ---
EXAMINATION TYPE: CT lumbar spine wo con DATE OF EXAM: 05/25/2016 1:49 AM COMPARISON: NONE HISTORY: Fall, lower back pain CT DLP: 1605.20 mGycm Automated exposure control for dose reduction was used. Unenhanced CT of the lumbar spine was performed. Bone and soft tissue window settings are submitted as well as coronal and sagittal reconstructions. There is osteopenia. Lumbar vertebrae have normal alignment. There is narrowing at L5-S1 disc space w ith spurring of the endplates. There is moderate hypertrophic facet arthropathy in the mid and lower lumbar spine. I see no compression fracture. There is no paraspinal mass. Sacroiliac joints appear in tact. There is ligamentum flavum thickening with facet arthropathy and resultant moderate spinal sten osis at L4-5. IMPRESSION: No fracture seen. L4-5 spinal stenosis. Osteopenia. Multilevel spondylosis and facet arthropathy.
--- NOTE | 2016-05-25 02:46 | ED ---
General Adult HPI - General Chief complaint: Back Pain/Injury Stated complaint: back pain Time Seen by Provider: 05/25/16 00:03 Source: patient, RN notes reviewed, old records reviewed Mode of arrival: EMS Limitations: no limitations - History of Present Illness Initial comments: Patient is a 75 year old male with chief complaint of back pain for 48 hours after a fall from his shower chair. Patient reports since the fall he was able to ambulate and denies saddle anesthesias. Patient has no decreased range of motion in the legs and denies peripheral paresthesias. Patient arrived via EMS with significant pain. Patient reports the pain is severe enough it radiates to his abdomen. Patient had normal bowel movements today. Patient reports that he is feels weak. He reports he was recently hospitalized for kidney injry and weakness.Patient denies fever, chills, chest pain, shortness of breath. - Related Data Home Medications Medication Instructions Recorded Confirmed Atorvastatin [Lipitor] 40 mg PO DAILY 01/18/16 05/25/16 Clopidogrel [Plavix] 75 mg PO DAILY 01/18/16 05/25/16 Folic Acid 1 mg PO DAILY 01/18/16 05/25/16 Levothyroxine Sodium [Synthroid] 75 mcg PO DAILY 01/18/16 05/25/16 Metoprolol Tartrate [Lopressor] 25 mg PO DAILY 01/18/16 05/25/16 Tamsulosin HCl [Flomax] 0.4 mg PO DAILY 01/18/16 05/25/16 glipiZIDE [Glucotrol] 5 mg PO DAILY 01/18/16 05/25/16 metFORMIN HCL 1,000 mg PO BID 01/18/16 05/25/16 Furosemide [Lasix] 40 mg PO DAILY 05/25/16 05/25/16 Lisinopril [Lisinopril] 20 mg PO BID 05/25/16 05/25/16 Magnesium 250 mg PO DAILY 05/25/16 05/25/16 Previous Rx's Medication Instructions Recorded Cyclobenzaprine [Flexeril] 10 mg PO TID #12 tab 05/25/16 HYDROcodone/APAP 10-325MG [[place] 1 tab PO Q6H PRN #10 tab 05/25/16 10-325] Allergies Allergy/AdvReac Type Severity Reaction Status Date / Time No Known Allergies Allergy Verified 05/25/16 00:05 Review of Systems ROS Statement: Those systems with pertinent positive or pertinent negative responses have been documented in the HPI. ROS Other: All systems not noted in ROS Statement are negative. Past Medical History Past Medical History: Diabetes Mellitus, Hypertension History of Any Multi-Drug Resistant Organisms: None Reported Past Surgical History: Coronary Bypass/CABG Additional Past Surgical History / Comment(s): brain aneursym repair Past Psychological History: No Psychological Hx Reported Smoking Status: Never smoker Past Alcohol Use History: None Reported Past Drug Use History: None Reported General Exam Limitations: no limitations General appearance: alert, in no apparent distress Head exam: Present: atraumatic, normocephalic, normal inspection Eye exam: Present: normal appearance, PERRL, EOMI. Absent: scleral icterus, conjunctival injection, periorbital swelling ENT exam: Present: normal exam, mucous membranes moist Neck exam: Present: normal inspection. Absent: tenderness, meningismus, lymphadenopathy Respiratory exam: Present: normal lung sounds bilaterally. Absent: respiratory distress, wheezes, rales, rhonchi, stridor Cardiovascular Exam: Present: regular rate, normal rhythm, normal heart sounds. Absent: systolic murmur, diastolic murmur, rubs, gallop, clicks GI/Abdominal exam: Present: soft, normal bowel sounds. Absent: distended, tenderness, guarding, rebound, rigid Extremities exam: Present: normal inspection, full ROM, normal capillary refill. Absent: tenderness, pedal edema, joint swelling, calf tenderness Back exam: Present: normal inspection, tenderness, vertebral tenderness (lumbar) Neurological exam: Present: alert, oriented X3, CN II-XII intact Psychiatric exam: Present: normal affect, normal mood Skin exam: Present: warm, dry, intact, normal color. Absent: rash Course Vital Signs 05/25/16 05/25/16 00:01 03:24 Temperature 98.3 F 98.3 F Pulse Rate 78 80 Respiratory 18 18 Rate Blood Pressure 163/84 156/78 O2 Sat by Pulse 94 L 98 Oximetry Medical Decision Making - Medical Decision Making Patient is a 75 year old male with lower back pain 48 hours after a fall from his shower chair. Patient reports that his pain is diffuse through the back and over the abdomen as well. He state she was recently hospitalized with acute kidney injury and CT abdomen, pelvis, and lumbar spine was ordered without contrast. Patient CT is negative for any acute process and no fracutres. Patients pain was managed with dilaudid, and patient reports he was able to ambulate. Patient was given Rx for pain medication and muscle relaxer. He has followup with PCP in 2 days. Patient and patients understand treatment plan and will comply. Return parameters discussed. - Lab Data Result diagrams: 05/25/16 01:19 05/25/16 01:19 Lab Results 05/25/16 05/25/16 Range/Units 01: 01:19 WBC 7.9 (3.8-10.6) k/uL RBC 4.16 L (4.30-5.90) m/uL Hgb 12.8 L (13.0-17.5) gm/dL Hct 37.7 L (39.0-53.0) % MCV 90.8 (80.0-100.0) fL MCH 30.8 (25.0-35.0) pg MCHC 33.9 (31.0-37.0) g/dL RDW 14.4 (11.5-15.5) % Plt Count 205 (150-450) k/uL Neutrophils % 73 % Lymphocytes % 18 % Monocytes % 5 % Eosinophils % 3 % Basophils % 0 % Neutrophils # 5.8 (1.3-7.7) k/uL Lymphocytes # 1.4 (1.0-4.8) k/uL Monocytes # 0.4 (0-1.0) k/uL Eosinophils # 0.2 (0-0.7) k/uL Basophils # 0.0 (0-0.2) k/uL Sodium 137 (137-145) mmol/L Potassium 4.2 (3.5-5.1) mmol/L Chloride 104 (98-107) mmol/L Carbon Dioxide 20 L (22-30) mmol/L Anion Gap 13 mmol/L BUN 16 (9-20) mg/dL Creatinine 0.90 (0.66-1.25) mg/dL Est GFR (MDRD) Af Amer >60 (>60 ml/min/1.73 sqM) Est GFR (MDRD) Non-Af >60 (>60 ml/min/1.73 sqM) Glucose 87 (74-99) mg/dL Calcium 8.8 (8.4-10.2) mg/dL Disposition Clinical Impression: Back pain Disposition: HOME SELF-CARE Condition: Good Instructions: Acute Low Back Pain (ED) Additional Instructions: Patient instructed to follow-up with primary care provider. Return to the EC if any alarming signs or symptoms occur. Prescriptions: Cyclobenzaprine [Flexeril] 10 mg PO TID #12 tab HYDROcodone/APAP 10-325MG [[place] 10-325] 1 tab PO Q6H PRN #10 tab PRN Reason: Pain Referrals: Alec Carpenter Jr, DO [Primary Care Provider] - 1-2 days Time of Disposition: 02:44
[2016-05-25 03:25] VITALS: BP 156/78; PULSE 80
== END 2016-05-25 03:25 | disposition home or self-care (01) ==
LOC: EC 23:43
DX: M54.5 Low back pain (principal); W07.XXXA Fall from chair, initial encounter; Y93.E1 Activity, personal bathing and showering; E11.9 Type 2 diabetes mellitus without complications; I10 Essential (primary) hypertension; Z95.1 Presence of aortocoronary bypass graft; Z79.899 Other long term (current) drug therapy; Z79.02 Long term (current) use of antithrombotics/antiplatelets; Z79.84 Long term (current) use of oral hypoglycemic drugs
CPT/HCPCS: 36415; 80048; 85025; 72131; 74176; 99284; 96374; J1170

== ENCOUNTER → 2016-06-26 | Outpatient (CLI) | payer MEDICARE ==
[2016-06-26 12:32] LABS: Anion Gap 12 mmol/L; Blood Urea Nitrogen 16 mg/dL (9-20); Carbon Dioxide 25 mmol/L (22-30); Chloride 103 mmol/L (98-107); Non-African American GFR(MDRD) >60 (>60 ml/min/1.73 sqM); Potassium 4.6 mmol/L (3.5-5.1); Sodium 140 mmol/L (137-145)
== END ==
LOC: LABMAIN 11:54
PROVIDERS: ATTEND Internal Medicine Interventional Cardiology
DX: I10 Essential (primary) hypertension (principal)
CPT/HCPCS: 36415; 80051; 82565; 84520

== ENCOUNTER → 2016-07-05 | Outpatient (CLI) | payer MEDICARE ==
[2016-07-05 12:20] LABS: ALT 29 U/L (21-72); AST 17 U/L (17-59); Alkaline Phosphatase 100 U/L (38-126); Anion Gap 14 mmol/L; Blood Urea Nitrogen 15 mg/dL (9-20); Calcium 9.6 mg/dL (8.4-10.2); Carbon Dioxide 25 mmol/L (22-30); Chloride 105 mmol/L (98-107); Cholesterol 132 mg/dL (<200); Glucose 136 mg/dL (74-99); HDL Cholesterol 45 mg/dL (40-60); Non-African American GFR(MDRD) >60 (>60 ml/min/1.73 sqM); Potassium 4.3 mmol/L (3.5-5.1); Sodium 144 mmol/L (137-145); Total Bilirubin 0.6 mg/dL (0.2-1.3); Total Protein 7.1 g/dL (6.3-8.2); Triglycerides 126 mg/dL (<150)
== END | disposition home or self-care (01) ==
LOC: LABWHC1 11:32
PROVIDERS: ATTEND Internal Medicine Interventional Cardiology
DX: E78.2 Mixed hyperlipidemia (principal)
CPT/HCPCS: 36415; 80053; 80061

== ENCOUNTER → 2016-07-11 | Outpatient (CLI) | payer MEDICARE | END | disposition home or self-care (01) | LOC: LABWHC1 12:02 | PROVIDERS: ATTEND Family Medicine | DX: Z00.00 Encounter for general adult medical examination without abnormal findings (principal); E03.1 Congenital hypothyroidism without goiter; Z12.5 Encounter for screening for malignant neoplasm of prostate | CPT/HCPCS: 84439; 84443; 36415; G0103 ==

== ENCOUNTER 2016-07-30 15:23 | Emergency (ER) | payer MEDICARE ==
[2016-07-30 15:38] VITALS: BP 142/88; PULSE 105; RESP 16; TEMP 97
--- NOTE | 2016-07-30 16:46 | ED ---
General Adult HPI - General Chief complaint: Dental/Oral Stated complaint: Can't remove dentures Time Seen by Provider: 07/30/16 16:34 Source: patient, RN notes reviewed Mode of arrival: ambulatory Limitations: no limitations - History of Present Illness Initial comments: This is a 75-year-old male who presents with complaints of his dentures being stuck. Patient states the area is swollen and he has a partial denture that he has not removed for 2 months. Patient states the area is very painful. Patient denies any recent fever, chills, shortness breath, chest pain, abdominal pain, nausea/vomiting/diarrhea, back pain, numbness, tingling, hematuria, headache, or visual changes, or any other complaints. - Related Data Home Medications Medication Instructions Recorded Confirmed Atorvastatin [Lipitor] 40 mg PO DAILY 01/18/16 05/25/16 Clopidogrel [Plavix] 75 mg PO DAILY 01/18/16 05/25/16 Folic Acid 1 mg PO DAILY 01/18/16 05/25/16 Levothyroxine Sodium [Synthroid] 75 mcg PO DAILY 01/18/16 05/25/16 Metoprolol Tartrate [Lopressor] 25 mg PO DAILY 01/18/16 05/25/16 Tamsulosin HCl [Flomax] 0.4 mg PO DAILY 01/18/16 05/25/16 glipiZIDE [Glucotrol] 5 mg PO DAILY 01/18/16 05/25/16 metFORMIN HCL 1,000 mg PO BID 01/18/16 05/25/16 Furosemide [Lasix] 40 mg PO DAILY 05/25/16 05/25/16 Lisinopril [Lisinopril] 20 mg PO BID 05/25/16 05/25/16 Magnesium 250 mg PO DAILY 05/25/16 05/25/16 Previous Rx's Medication Instructions Recorded Cyclobenzaprine [Flexeril] 10 mg PO TID #12 tab 05/25/16 HYDROcodone/APAP 10-325MG [[place] 1 tab PO Q6H PRN #10 tab 05/25/16 10-325] Penicillin V Potassium [Pen Vee K] 500 mg PO QID 7 Days 07/30/16 Allergies Allergy/AdvReac Type Severity Reaction Status Date / Time No Known Allergies Allergy Verified 07/30/16 15:38 Review of Systems ROS Statement: Those systems with pertinent positive or pertinent negative responses have been documented in the HPI. ROS Other: All systems not noted in ROS Statement are negative. Past Medical History Past Medical History: Diabetes Mellitus, Hypertension History of Any Multi-Drug Resistant Organisms: None Reported Past Surgical History: Coronary Bypass/CABG Additional Past Surgical History / Comment(s): brain aneursym repair Past Psychological History: No Psychological Hx Reported Smoking Status: Never smoker Past Alcohol Use History: None Reported Past Drug Use History: None Reported General Exam - General Exam Comments Initial Comments: General: The patient is awake and alert, in no distress, and does not appear acutely ill. Eye: Pupils are equal, round and reactive to light, extra-ocular movements are intact. No nystagmus. There is normal conjunctiva bilaterally. No signs of icterus. Ears: TMs pink and pearly with intact cone of light bilaterally. Normal external ear canals Nose: Nasal turbinates pink and moist Mouth and throat: Patient has a partial denture to the lower gumline with swelling around it and mild erythema. Some purulent material around the the dentures as well. There are moist mucous membranes and no oral lesions. Neck: The neck is supple, there is no tenderness or JVD. Cardiovascular: There is a regular rate and rhythm. No murmur, rub or gallop is appreciated. Respiratory: Lungs are clear to auscultation, respirations are non-labored, breath sounds are equal. No wheezes, stridor, rales, or rhonchi. Musculoskeletal: Normal ROM, no tenderness. Strength 5/5. Sensation intact. Radial pulses equal bilaterally 2+. Neurological: A&O x 3. CN II-XII intact, There are no obvious motor or sensory deficits. Coordination appears grossly intact. Speech is normal. Skin: Skin is warm and dry and no rashes or lesions are noted. Psychiatric: Cooperative, appropriate mood & affect, normal judgment. Limitations: no limitations Course Vital Signs 07/30/16 15:36 Temperature 97.0 F L Pulse Rate 105 H Respiratory 16 Rate Blood Pressure 142/88 O2 Sat by Pulse 98 Oximetry Medical Decision Making - Medical Decision Making This is a 75-year-old male presents complaints of dentures that are stuck. On physical exam patient is well-appearing and afebrile in the EC. Patient has a partial denture to the lower gumline with swelling around it and mild erythema. Some purulent material around the the dentures as well. There are moist mucous membranes and no oral lesions. Discussed with the patient that he will be put on a course of Pen-Vee K and that he needs to follow up with his dentist in one to 2 days. I discussed Tylenol and Motrin for pain. Discussed that patient should follow up with PCP in one to 2 days or return to the EC for any worsening symptoms or for any further concerns. Patient was receptive to this plan and patient will be discharged home. I discussed this case with attending physician Dr. Grimaldo who agrees the plan as stated above. Disposition Clinical Impression: Pain, dental Disposition: HOME SELF-CARE Condition: Good Instructions: Toothache (ED) Additional Instructions: Please finish entire course of antibiotics. Please use Tylenol and Motrin for any pain. Please follow-up with a dentist in 1-2 days.[facility] dental plan: [id number] [place] [address], . [employer]: Have to pay $50 for x-rays and the rest is covered. . Please use medication as discussed. Please follow-up with family doctor in the next 2 days of symptoms have not improved. Please return to emergency room if the symptoms increase or worsen or for any other concerns. Prescriptions: Penicillin V Potassium [Pen Vee K] 500 mg PO QID 7 Days Referrals: Alec Carpenter Jr, [Primary Care Provider] - 1-2 days Time of Disposition: 17:11
== END 2016-07-30 17:15 | disposition home or self-care (01) ==
LOC: EC 15:23
DX: K08.89 Other specified disorders of teeth and supporting structures (principal); E11.9 Type 2 diabetes mellitus without complications; I10 Essential (primary) hypertension; Z97.2 Presence of dental prosthetic device (complete) (partial); Z79.02 Long term (current) use of antithrombotics/antiplatelets; Z79.84 Long term (current) use of oral hypoglycemic drugs; Z79.899 Other long term (current) drug therapy
CPT/HCPCS: 99282; 99283

== ENCOUNTER 2016-10-31 02:10 | Emergency (ER) | payer MEDICARE ==
[2016-10-31 02:19] VITALS: RESP 16
[2016-10-31] MEDS ORDERED: HYDROmorphone 1 MG/ML 1 ML SYRINGE IM STA (02:49)
[2016-10-31] MEDS ORDERED: ORPHENADRINE 30 MG/ML 2 ML VIAL IM STA (02:50)
--- NOTE | 2016-10-31 04:03 | ED ---
Back Pain HPI - General Chief Complaint: Back Pain/Injury Stated Complaint: back pain Time Seen by Provider: 10/31/16 02:39 Source: EMS Limitations: no limitations - Related Data Home Medications Medication Instructions Recorded Confirmed Atorvastatin [Lipitor] 40 mg PO DAILY 01/18/16 05/25/16 Clopidogrel [Plavix] 75 mg PO DAILY 01/18/16 05/25/16 Folic Acid 1 mg PO DAILY 01/18/16 05/25/16 Levothyroxine Sodium [Synthroid] 75 mcg PO DAILY 01/18/16 05/25/16 Metoprolol Tartrate [Lopressor] 25 mg PO DAILY 01/18/16 05/25/16 Tamsulosin HCl [Flomax] 0.4 mg PO DAILY 01/18/16 05/25/16 glipiZIDE [Glucotrol] 5 mg PO DAILY 01/18/16 05/25/16 metFORMIN HCL 1,000 mg PO BID 01/18/16 05/25/16 Furosemide [Lasix] 40 mg PO DAILY 05/25/16 05/25/16 Lisinopril [Lisinopril] 20 mg PO BID 05/25/16 05/25/16 Magnesium 250 mg PO DAILY 05/25/16 05/25/16 Previous Rx's Medication Instructions Recorded Cyclobenzaprine [Flexeril] 10 mg PO TID #12 tab 05/25/16 HYDROcodone/APAP 10-325MG [[place] 1 tab PO Q6H PRN #10 tab 05/25/16 10-325] Penicillin V Potassium [Pen Vee K] 500 mg PO QID 7 Days 07/30/16 Cyclobenzaprine [Flexeril] 10 mg PO TID #15 tab 10/31/16 HYDROcodone/APAP 10-325MG [[place] 1 tab PO Q6H PRN #10 tab 10/31/16 10-325] Allergies Allergy/AdvReac Type Severity Reaction Status Date / Time No Known Allergies Allergy Verified 10/31/16 02:16 Review of Systems ROS Statement: Those systems with pertinent positive or pertinent negative responses have been documented in the HPI. ROS Other: All systems not noted in ROS Statement are negative. Past Medical History Past Medical History: Diabetes Mellitus, Hypertension History of Any Multi-Drug Resistant Organisms: None Reported Past Surgical History: Coronary Bypass/CABG Additional Past Surgical History / Comment(s): brain aneursym repair Past Psychological History: No Psychological Hx Reported Smoking Status: Never smoker Past Alcohol Use History: None Reported Past Drug Use History: None Reported General Exam Limitations: no limitations Course Vital Signs 10/31/16 02:17 Temperature 98.4 F Pulse Rate 84 Respiratory 16 Rate Blood Pressure 147/59 O2 Sat by Pulse 96 Oximetry Disposition Clinical Impression: Acute exacerbation of chronic low back pain Disposition: HOME SELF-CARE Condition: Good Instructions: Acute Low Back Pain (ED) Additional Instructions: Patient is to rest, apply heat and ice to the lower back. Take pain medication and muscle relaxers as prescribed. Follow-up with her primary care provider tomorrow. Prescriptions: Cyclobenzaprine [Flexeril] 10 mg PO TID #15 tab HYDROcodone/APAP 10-325MG [[place] 10-325] 1 tab PO Q6H PRN #10 tab PRN Reason: Pain Referrals: Reginald Spann MD [Primary Care Provider] - 1-2 days Time of Disposition: 04:02
--- NOTE | 2016-10-31 04:12 | XR ---
EXAM: XR L Spine CLINICAL HISTORY: Reason: Pain TECHNIQUE: X-ray l spine. COMPARISON: CT 05/25/16. FINDINGS/IMPRESSION: Suspect mild loss of height at L1 new since prior. Correlate with point tenderness. No retropulsion. No other evidence for acute fracture or subluxation is identified. Degenerative changes.
[2016-10-31 04:19] VITALS: BP 150/70; PULSE 89; TEMP 98.3
== END 2016-10-31 04:17 | disposition home or self-care (01) ==
LOC: EC 02:10
DX: M54.5 Low back pain (principal); G89.29 Other chronic pain; E11.9 Type 2 diabetes mellitus without complications; I10 Essential (primary) hypertension; Z79.02 Long term (current) use of antithrombotics/antiplatelets; Z79.84 Long term (current) use of oral hypoglycemic drugs; Z79.899 Other long term (current) drug therapy
CPT/HCPCS: 99283; 96372 ×2; 72100; J2360; J1170

== ENCOUNTER 2016-11-07 12:26 | Inpatient (IN) | payer MEDICARE ==
[2016-11-07] MEDS ORDERED: SODIUM CHLORIDE 0.9% 1,000 ML IV STA (14:14)
--- NOTE | 2016-11-07 14:56 | ED ---
Weakness HPI - General Chief complaint: Weakness Stated complaint: Dehydration Time Seen by Provider: 11/07/16 14:00 Source: patient, family Mode of arrival: ambulatory Limitations: no limitations - History of Present Illness MD Complaint: generalized weakness, difficulty walking Onset/Timin -: week(s) Location: generalized Severity: moderate Quality: other (Decreasing ability to carry out activities of daily living) Consistency: constant Improves with: none Worsens with: exertion Context: history of similar Associated Symptoms: dysuria, loss of appetite, nausea/vomiting - Related Data Home Medications Medication Instructions Recorded Confirmed Atorvastatin [Lipitor] 40 mg PO HS 01/18/16 11/07/16 Clopidogrel [Plavix] 75 mg PO DAILY 01/18/16 11/07/16 Folic Acid 1 mg PO DAILY 01/18/16 11/07/16 Levothyroxine Sodium [Synthroid] 75 mcg PO DAILY 01/18/16 11/07/16 Tamsulosin HCl [Flomax] 0.4 mg PO HS 01/18/16 11/07/16 metFORMIN HCL 1,000 mg PO BID 01/18/16 11/07/16 Lisinopril [Lisinopril] 20 mg PO BID 05/25/16 11/07/16 Cyclobenzaprine [Flexeril] 10 mg PO TID PRN 11/07/16 11/07/16 Metoprolol Succinate [Toprol XL] 25 mg PO DAILY 11/07/16 11/07/16 Potassium Chloride ER [K-Dur 10] 10 meq PO DAILY 11/07/16 11/07/16 glipiZIDE XL [Glucotrol Xl] 5 mg PO DAILY 11/07/16 11/07/16 Previous Rx's Medication Instructions Recorded HYDROcodone/APAP 10-325MG [[place] 1 tab PO Q6H PRN #10 tab 10/31/16 10-325] Allergies Allergy/AdvReac Type Severity Reaction Status Date / Time No Known Allergies Allergy Verified 11/07/16 14:03 Review of Systems ROS Statement: Those systems with pertinent positive or pertinent negative responses have been documented in the HPI. ROS Other: All systems not noted in ROS Statement are negative. Constitutional: Reports: weakness Gastrointestinal: Reports: nausea Genitourinary: Reports: dysuria, frequency Neurological: Reports: weakness, confusion, abnormal gait Past Medical History Past Medical History: Diabetes Mellitus, Hypertension History of Any Multi-Drug Resistant Organisms: None Reported Past Surgical History: Coronary Bypass/CABG Additional Past Surgical History / Comment(s): brain aneursym repair Past Psychological History: No Psychological Hx Reported Smoking Status: Never smoker Past Alcohol Use History: None Reported Past Drug Use History: None Reported General Exam Limitations: no limitations General appearance: alert, in no apparent distress Head exam: Present: atraumatic, normocephalic Eye exam: Present: normal appearance ENT exam: Present: mucous membranes dry Neck exam: Present: normal inspection Respiratory exam: Present: normal lung sounds bilaterally Cardiovascular Exam: Present: regular rate GI/Abdominal exam: Present: tenderness (Suprapubic) Rectal exam: Present: deferred Extremities exam: Present: normal inspection Neurological exam: Present: alert, oriented X3 Psychiatric exam: Present: normal affect, normal mood Skin exam: Present: pallor Course Vital Signs 11/07/16 11/07/16 11/07/16 12:42 14:30 14:35 Temperature 98.7 F Pulse Rate 92 92 Respiratory 20 20 20 Rate Blood Pressure 106/50 110/68 O2 Sat by Pulse 95 99 Oximetry 11/07/16 16:40 Temperature Pulse Rate 78 Respiratory 18 Rate Blood Pressure 119/65 O2 Sat by Pulse 99 Oximetry EKG Findings - EKG Comments: EKG Findings:: EKG shows normal sinus rhythm with a right bundle branch block. Ventricular rate is 90 bpm. Intervals appear to be within normal limits. EKG is similar when compared to study done on 05/08/2016. Medical Decision Making - Medical Decision Making He is a 75-year-old male who presents with a chief complaint of generalized weakness. He presents with his who states that this is been going on on and off for months now however the patient is acutely worse over the last week or so. The patient describes multiple falls at home over the last month however there has not been any within the last week. Patient states that he is generally getting more weak, and is having trouble carrying out his daily activities. She was seen by home care nurse today who suggested that he come to the emergency department EKG was reviewed, it shows no acute process, it is similar to study done on 05/08/2016. His are stable this time. Initial examination shows a pale patient. It was concerning for possible urinary tract infection or anemia. We'll send work including blood cultures and a lactic. - Lab Data Result diagrams: 11/07/16 15:20 11/07/16 15:20 Lab Results 11/07/16 11/07/16 11/07/16 Range/Units 15:20 15:20 15:20 WBC 9.1 (3.8-10.6) k/uL RBC 4.87 (4.30-5.90) m/uL Hgb 15.7 (13.0-17.5) gm/dL Hct 45.8 (39.0-53.0) % MCV 94.0 (80.0-100.0) fL MCH 32.3 (25.0-35.0) pg MCHC 34.3 (31.0-37.0) g/dL RDW 13.9 (11.5-15.5) % Plt Count 196 (150-450) k/uL Neutrophils % 81 % Lymphocytes % 12 % Monocytes % 5 % Eosinophils % 1 % Basophils % 0 % Neutrophils # 7.4 (1.3-7.7) k/uL Lymphocytes # 1.1 (1.0-4.8) k/uL Monocytes # 0.5 (0-1.0) k/uL Eosinophils # 0.1 (0-0.7) k/uL Basophils # 0.0 (0-0.2) k/uL PT 12.2 H (9.0-12.0) sec INR 1.2 (<1.1) APTT 20.7 L (22.0-30.0) sec Sodium 141 (137-145) mmol/L Potassium 5.6 H (3.5-5.1) mmol/L Chloride 113 H (98-107) mmol/L Carbon Dioxide 15 L (22-30) mmol/L Anion Gap 13 mmol/L BUN 52 H (9-20) mg/dL Creatinine 1.79 H (0.66-1.25) mg/dL Est GFR (MDRD) Af Amer 45 (>60 ml/min/1.73 sqM) Est GFR (MDRD) Non-Af 37 (>60 ml/min/1.73 sqM) Glucose 132 H (74-99) mg/dL Plasma Lactic Acid Percy (0.7-2.0) mmol/L Calcium 9.0 (8.4-10.2) mg/dL Magnesium 1.9 (1.6-2.3) mg/dL Total Bilirubin 1.4 H (0.2-1.3) mg/dL AST 23 (17-59) U/L ALT 29 (21-72) U/L Alkaline Phosphatase 120 (38-126) U/L Total Creatine Kinase (55-170) U/L CK-MB (CK-2) (0.0-2.4) ng/mL CK-MB (CK-2) Rel Index Troponin I (0.000-0.034) ng/mL Total Protein 7.1 (6.3-8.2) g/dL Albumin 3.9 (3.5-5.0) g/dL 11/07/16 11/07/16 Range/Units 15:20 15:20 WBC (3.8-10.6) k/uL RBC (4.30-5.90) m/uL Hgb (13.0-17.5) gm/dL Hct (39.0-53.0) % MCV (80.0-100.0) fL MCH (25.0-35.0) pg MCHC (31.0-37.0) g/dL RDW (11.5-15.5) % Plt Count (150-450) k/uL Neutrophils % % Lymphocytes % % Monocytes % % Eosinophils % % Basophils % % Neutrophils # (1.3-7.7) k/uL Lymphocytes # (1.0-4.8) k/uL Monocytes # (0-1.0) k/uL Eosinophils # (0-0.7) k/uL Basophils # (0-0.2) k/uL PT (9.0-12.0) sec INR (<1.1) APTT (22.0-30.0) sec Sodium (137-145) mmol/L Potassium (3.5-5.1) mmol/L Chloride (98-107) mmol/L Carbon Dioxide (22-30) mmol/L Anion Gap mmol/L BUN (9-20) mg/dL Creatinine (0.66-1.25) mg/dL Est GFR (MDRD) Af Amer (>60 ml/min/1.73 sqM) Est GFR (MDRD) Non-Af (>60 ml/min/1.73 sqM) Glucose (74-99) mg/dL Plasma Lactic Acid Percy 2.3 H* (0.7-2.0) mmol/L Calcium (8.4-10.2) mg/dL Magnesium (1.6-2.3) mg/dL Total Bilirubin (0.2-1.3) mg/dL AST (17-59) U/L ALT (21-72) U/L Alkaline Phosphatase (38-126) U/L Total Creatine Kinase 171 H (55-170) U/L CK-MB (CK-2) 2.0 (0.0-2.4) ng/mL CK-MB (CK-2) Rel Index 1.2 Troponin I <0.012 (0.000-0.034) ng/mL Total Protein (6.3-8.2) g/dL Albumin (3.5-5.0) g/dL Disposition Clinical Impression: Acute kidney injury, Lactic acidosis, Anuresis Disposition: ADMITTED IP TO THIS HOSP Condition: Fair Referrals: Reginald Spann MD [Primary Care Provider] - 1-2 days
--- NOTE | 2016-11-07 15:02 | XR ---
EXAMINATION TYPE: XR chest 2V DATE OF EXAM: 11/07/2016 COMPARISON: Prior chest x-ray 05/08/2016 HISTORY: Weakness, dizziness, history of hypertension TECHNIQUE: Frontal and lateral views of the chest are obtained. FINDINGS: Patient is post median sternotomy. Exam is rotated. Accounting for technique cardiomediast inal silhouette, pulmonary vascularity and yessenia felt likely to be stable. No focal pneumonia, pneumot horax, or pleural effusion. Suspect coronary artery calcifications. Surgical clips in the upper abdom en. Arthropathy noted in the shoulders. IMPRESSION: No acute cardiopulmonary process.
[2016-11-07 15:30] LABS: Basophils % (A) 0 %; CHCM 33.1; Eosinophils # (A) 0.1 k/uL (0-0.7); Eosinophils % (A) 1 %; HCT 45.8 % (39.0-53.0); HDW 2.77; HGB 15.7 gm/dL (13.0-17.5); Luc # (Auto) 0.09; Luc % (Auto) 1; Lymphocytes # (A) 1.1 k/uL (1.0-4.8); Lymphocytes % (A) 12 %; MCH 32.3 pg (25.0-35.0); MCHC 34.3 g/dL (31.0-37.0); Mean Platelet Volume 7.8; Monocytes # (A) 0.5 k/uL (0-1.0); Monocytes % (A) 5 %; Neutrophils # (A) 7.4 k/uL (1.3-7.7); Neutrophils % (A) 81 %; RBC 4.87 m/uL (4.30-5.90); RDW 13.9 % (11.5-15.5); WBC 9.1 k/uL (3.8-10.6); WBC (Perox) 9.09
[2016-11-07 15:39] LABS: INR 1.2 (<1.1); Prothrombin Time 12.2 sec (9.0-12.0)
[2016-11-07 15:50] LABS: Magnesium 1.9 mg/dL (1.6-2.3); Potassium 5.6 mmol/L (3.5-5.1); Total Bilirubin 1.4 mg/dL (0.2-1.3); Total Protein 7.1 g/dL (6.3-8.2)
[2016-11-07 15:53] LABS: Creatine Kinase 171 U/L (55-170)
[2016-11-07] MEDS ORDERED: SODIUM CHLORIDE 0.9% 1,000 ML IV ONE (16:04)
[2016-11-07 16:07] LABS: Troponin I <0.012 ng/mL (0.000-0.034)
[2016-11-07] MEDS ORDERED: SODIUM CHLORIDE 0.9% 1,000 ML IV SCH ×2 (16:15→17:15)
[2016-11-07 16:20] LABS: Partial Thromboplastin Time 20.7 sec (22.0-30.0)
[2016-11-07] MEDS ORDERED: NALOXONE 0.4 MG/ML 1 ML VIAL IV PRN (17:11)
[2016-11-07] MEDS ORDERED: HYDROcodone/APAP 10-325MG 1 EACH TAB PO PRN (17:15)
[2016-11-07] MEDS: metFORMIN 500 MG TAB PO SCH (18:58)
[2016-11-07 21:06] LABS: Glucose,Whole Blood 60 mg/dL (75-99)
[2016-11-07 21:06] LABS: Glucose,Whole Blood 60 mg/dL (75-99)
[2016-11-07] MEDS: TAMSULOSIN 0.4 MG CAP.ER.24H PO SCH (21:13)
[2016-11-07] MEDS: LISINOPRIL 20 MG TAB PO SCH (21:14)
[2016-11-07] MEDS: ATORVASTATIN 40 MG TAB PO SCH (21:14)
[2016-11-07 21:23] LABS: Glucose,Whole Blood 62 mg/dL (75-99)
[2016-11-07 21:24] LABS: Glucose,Whole Blood 61 mg/dL (75-99)
[2016-11-07 21:55] LABS: Glucose,Whole Blood 64 mg/dL (75-99)
[2016-11-07 22:06] LABS: Glucose,Whole Blood 70 mg/dL (75-99)
[2016-11-07] MEDS: DEXTROSE 5%-0.9% NACL 1,000 ML IV SCH (22:06)
[2016-11-07 23:18] LABS: Glucose,Whole Blood 91 mg/dL (75-99)
[2016-11-07 23:45] LABS: Calcium 8.7 mg/dL (8.4-10.2); Potassium 5.4 mmol/L (3.5-5.1); Total Bilirubin 0.7 mg/dL (0.2-1.3); Total Protein 6.4 g/dL (6.3-8.2)
[2016-11-08 01:00] LABS: Glucose,Whole Blood 108 mg/dL (75-99)
[2016-11-08 03:30] LABS: Appearance,Urine Clear (Clear); Bilirubin,Urine Negative (Negative); Glucose,Urine (UA) Negative (Negative); Granular Casts,Urine 90 /lpf (0); Ketones,Urine Negative (Negative); Leukocyte Esterase,Urine Small (Negative); Nitrite,Urine Negative (Negative); Particle Count 1919; Protein,Urine Trace (Negative); RBC,Urine 13 /hpf (0-5); Specific Gravity,Urine 1.009 (1.001-1.035); Squamous Epithelial Cell,Urine <1 /hpf (0-4); UA Billing (MACRO vs. MICRO) MICRO; Urobilinogen,Urine <2.0 mg/dL (<2.0); WBC,Urine 17 /hpf (0-5)
[2016-11-08 04:04] LABS: Glucose,Whole Blood 117 mg/dL (75-99)
[2016-11-08] MEDS: LEVOTHYROXINE 75 MCG TAB PO SCH (05:58)
[2016-11-08] MEDS: DEXTROSE 5%-0.9% NACL 1,000 ML IV SCH ×2 (06:00→15:29)
[2016-11-08 07:00] LABS: Glucose,Whole Blood 119 mg/dL (75-99)
[2016-11-08] MEDS: metFORMIN 500 MG TAB PO SCH ×2 (07:45→17:16)
[2016-11-08] MEDS: CLOPIDOGREL 75 MG TAB PO SCH (07:46)
[2016-11-08] MEDS: POTASSIUM CHLORIDE ER 10 MEQ TAB.ER.PRT PO SCH (07:46)
[2016-11-08 09:18] LABS: Calcium 8.5 mg/dL (8.4-10.2); Potassium 4.9 mmol/L (3.5-5.1); Total Bilirubin 0.9 mg/dL (0.2-1.3); Total Protein 6.4 g/dL (6.3-8.2)
[2016-11-08] MEDS: METOPROLOL SUCCINATE (ER) 25 MG TAB.ER.24H PO SCH (09:52)
[2016-11-08] MEDS: LISINOPRIL 20 MG TAB PO SCH (09:53)
[2016-11-08 12:31] LABS: Glucose,Whole Blood 142 mg/dL (75-99)
--- NOTE | 2016-11-08 13:25 | P.HPIM ---
History of Present Illness H&P Date: 11/08/16 Chief Complaint: Dehydration and confusion This is a pleasant 75-year-old white male one on the practice. Family indicates the past several days he has been taking increased trouble walking, some confusion, and generalized weakness. He was transported to the ER by his family for evaluation. Emergency room workup found that he had a significantly elevated BUN and creatinine. Now admitted for further workup. At this time he is awake and alert, but oriented [address] only[address] He is unsure the exact date and responds with November 07, 1916 he quickly corrects himself. He denies any chest pain, pressure, significant shortness of breath. He describes recent issues as feeling more weak and just not right in the head. Review of Systems All systems: negative Past Medical History Past Medical History: Diabetes Mellitus, Hypertension History of Any Multi-Drug Resistant Organisms: None Reported Past Surgical History: Coronary Bypass/CABG Additional Past Surgical History / Comment(s): brain aneursym repair Past Psychological History: No Psychological Hx Reported Smoking Status: Never smoker Past Alcohol Use History: None Reported Past Drug Use History: None Reported Medications and Allergies Home Medications Medication Instructions Recorded Confirmed Type Atorvastatin [Lipitor] 40 mg PO HS 01/18/16 11/07/16 History Clopidogrel [Plavix] 75 mg PO DAILY 01/18/16 11/07/16 History Folic Acid 1 mg PO DAILY 01/18/16 11/07/16 History Levothyroxine Sodium [Synthroid] 75 mcg PO DAILY 01/18/16 11/07/16 History Tamsulosin HCl [Flomax] 0.4 mg PO HS 01/18/16 11/07/16 History metFORMIN HCL 1,000 mg PO BID 01/18/16 11/07/16 History Lisinopril [Lisinopril] 20 mg PO BID 05/25/16 11/07/16 History Cyclobenzaprine [Flexeril] 10 mg PO TID PRN 11/07/16 11/07/16 History Metoprolol Succinate [Toprol XL] 25 mg PO DAILY 11/07/16 11/07/16 History Potassium Chloride ER [K-Dur 10] 10 meq PO DAILY 11/07/16 11/07/16 History glipiZIDE XL [Glucotrol Xl] 5 mg PO DAILY 11/07/16 11/07/16 History Allergies Allergy/AdvReac Type Severity Reaction Status Date / Time No Known Allergies Allergy Verified 11/07/16 14:03 Physical Exam Vitals: Vital Signs Temp Pulse Pulse Resp BP BP Pulse Ox 11/08/16 07:00 98.4 F 98 17 91/51 97 11/07/16 23:00 96.1 F L 85 14 124/79 97 11/07/16 21:12 77 142/81 11/07/16 18:56 96.6 F L 75 14 126/72 99 11/07/16 18:17 96.9 F L 76 18 149/72 98 11/07/16 18:00 96.8 F L 80 18 143/66 98 11/07/16 17:32 76 18 128/72 98 11/07/16 16:40 78 18 119/65 99 11/07/16 14:35 20 11/07/16 14:30 92 20 110/68 99 Intake and Output 11/07/16 11/08/16 11/08/16 22:59 06:59 14:59 Output Total 500 325 Balance -500 -325 Output: Urine 325 Emesis 500 Other: Voiding Method Urinal Urinal # Voids 0 1 # Bowel Movements 1 # Emeses 1 GENERAL: well-nourished and in no acute distress. Has hard time sitting up due to back pain HEAD: Atraumatic, normocephalic. EYES: Pupils equal round and reactive to light, extraocular movements intact, sclera anicteric, conjunctiva are normal. ENT:nares patent, oropharynx clear without exudates. Moist mucous membranes. NECK: Normal range of motion, supple without lymphadenopathy or JVD, no thyromegaly LUNGS: Breath sounds clear to auscultation bilaterally and equal. No wheezes rales or rhonchi. HEART: Regular rate and rhythm without murmurs, rubs or gallops.S1S2 Normal ABDOMEN: Soft, nontender, normoactive bowel sounds. No guarding, no rebound. No masses appreciated. EXTREMITIES: Normal range of motion, no pitting or edema. No clubbing or cyanosis. NEUROLOGICAL: Cranial nerves II through XII grossly intact. Normal speech, awake alert and oriented 2.5 PSYCH: Normal mood, normal affect. SKIN: Warm, Dry, normal turgor, no rashes or lesions noted. Results CBC & Chem 7: 11/07/16 15:20 11/08/16 08:02 Labs: Abnormal Lab Results - Last 24 Hours (Table) 11/07/16 11/07/16 11/07/16 Range/Units 15:20 15:20 15:20 PT 12.2 H (9.0-12.0) sec APTT 20.7 L (22.0-30.0) sec Potassium 5.6 H (3.5-5.1) mmol/L Chloride 113 H (98-107) mmol/L Carbon Dioxide 15 L (22-30) mmol/L BUN 52 H (9-20) mg/dL Creatinine 1.79 H (0.66-1.25) mg/dL Glucose 132 H (74-99) mg/dL POC Glucose (mg/dL) (75-99) mg/dL Plasma Lactic Acid Percy (0.7-2.0) mmol/L Total Bilirubin 1.4 H (0.2-1.3) mg/dL ALT (21-72) U/L Total Creatine Kinase 171 H (55-170) U/L Albumin (3.5-5.0) g/dL Urine Protein (Negative) Urine Blood (Negative) Ur Leukocyte Esterase (Negative) Urine RBC (0-5) /hpf Urine WBC (0-5) /hpf Hyaline Casts (0-2) /lpf 11/07/16 11/07/16 11/07/16 Range/Units 15:20 20:53 20:56 PT (9.0-12.0) sec APTT (22.0-30.0) sec Potassium (3.5-5.1) mmol/L Chloride (98-107) mmol/L Carbon Dioxide (22-30) mmol/L BUN (9-20) mg/dL Creatinine (0.66-1.25) mg/dL Glucose (74-99) mg/dL POC Glucose (mg/dL) 60 L 60 L (75-99) mg/dL Plasma Lactic Acid Percy 2.3 H* (0.7-2.0) mmol/L Total Bilirubin (0.2-1.3) mg/dL ALT (21-72) U/L Total Creatine Kinase (55-170) U/L Albumin (3.5-5.0) g/dL Urine Protein (Negative) Urine Blood (Negative) Ur Leukocyte Esterase (Negative) Urine RBC (0-5) /hpf Urine WBC (0-5) /hpf Hyaline Casts (0-2) /lpf 11/07/16 11/07/16 11/07/16 Range/Units 21:19 21:20 21:43 PT (9.0-12.0) sec APTT (22.0-30.0) sec Potassium (3.5-5.1) mmol/L Chloride (98-107) mmol/L Carbon Dioxide (22-30) mmol/L BUN (9-20) mg/dL Creatinine (0.66-1.25) mg/dL Glucose (74-99) mg/dL POC Glucose (mg/dL) 62 L 61 L 64 L (75-99) mg/dL Plasma Lactic Acid Percy (0.7-2.0) mmol/L Total Bilirubin (0.2-1.3) mg/dL ALT (21-72) U/L Total Creatine Kinase (55-170) U/L Albumin (3.5-5.0) g/dL Urine Protein (Negative) Urine Blood (Negative) Ur Leukocyte Esterase (Negative) Urine RBC (0-5) /hpf Urine WBC (0-5) /hpf Hyaline Casts (0-2) /[facility] 11/07/16 11/07/16 11/08/16 Range/Units 22:02 22:59 00:58 PT (9.0-12.0) sec APTT (22.0-30.0) sec Potassium 5.4 H (3.5-5.1) mmol/L Chloride 114 H (98-107) mmol/L Carbon Dioxide 17 L (22-30) mmol/L BUN 53 H (9-20) mg/dL Creatinine 2.00 H (0.66-1.25) mg/dL Glucose (74-99) mg/dL POC Glucose (mg/dL) 70 L 108 H (75-99) mg/dL Plasma Lactic Acid Percy (0.7-2.0) mmol/L Total Bilirubin (0.2-1.3) mg/dL ALT (21-72) U/L Total Creatine Kinase (55-170) U/L Albumin (3.5-5.0) g/dL Urine Protein (Negative) Urine Blood (Negative) Ur Leukocyte Esterase (Negative) Urine RBC (0-5) /hpf Urine WBC (0-5) /hpf Hyaline Casts (0-2) /lpf 11/08/16 11/08/16 11/08/16 Range/Units 03:15 04:00 06:57 PT (9.0-12.0) sec APTT (22.0-30.0) sec Potassium (3.5-5.1) mmol/L Chloride (98-107) mmol/L Carbon Dioxide (22-30) mmol/L BUN (9-20) mg/dL Creatinine (0.66-1.25) mg/dL Glucose (74-99) mg/dL POC Glucose (mg/dL) 117 H 119 H (75-99) mg/dL Plasma Lactic Acid Percy (0.7-2.0) mmol/L Total Bilirubin (0.2-1.3) mg/dL ALT (21-72) U/L Total Creatine Kinase (55-170) U/L Albumin (3.5-5.0) g/dL Urine Protein Trace H (Negative) Urine Blood Trace H (Negative) Ur Leukocyte Esterase Small H (Negative) Urine RBC 13 H (0-5) /hpf Urine WBC 17 H (0-5) /hpf Hyaline Casts 5 H (0-2) /lpf 11/08/16 11/08/16 Range/Units 08:02 12:28 PT (9.0-12.0) sec APTT (22.0-30.0) sec Potassium (3.5-5.1) mmol/L Chloride 115 H (98-107) mmol/L Carbon Dioxide 15 L (22-30) mmol/L BUN 49 H (9-20) mg/dL Creatinine 1.63 H (0.66-1.25) mg/dL Glucose 133 H (74-99) mg/dL POC Glucose (mg/dL) 142 H (75-99) mg/dL Plasma Lactic Acid Percy (0.7-2.0) mmol/L Total Bilirubin (0.2-1.3) mg/dL ALT 17 L (21-72) U/L Total Creatine Kinase (55-170) U/L Albumin 3.4 L (3.5-5.0) g/dL Urine Protein (Negative) Urine Blood (Negative) Ur Leukocyte Esterase (Negative) Urine RBC (0-5) /hpf Urine WBC (0-5) /hpf Hyaline Casts (0-2) /lpf Microbiology - Last 24 Hours (Table) 11/07/16 15:48 Urine Culture - Preliminary Urine,Catheterized Thrombosis Risk Factor Assmnt - DVT/VTE Prophylaxis DVT/VTE Prophylaxis: Pharmacologic Prophylaxis ordered, Mechanical Prophylaxis ordered - Choose All That Apply Each Factor Represents 1 point: Swollen legs (current) Each Risk Factor Represents 2 Points: Age 61-74 years Thrombosis Risk Factor Assessment Total Risk Factor Score: 3 Thrombosis Risk Factor Assessment Level: Moderate Risk Assessment and Plan Plan: 1 Acute renal failure unknown cause, possibly hypotension: We'll consult nephrology. Admission BUN 52/1.79, currently 49/1.63, continue IV fluids of D5 normal saline @125 mL an hour originally normal saline was changed to solution due to hypoglycemia 2 Episodic confusion: Related to dehydration to hypotension and/or hypoglycemia. Discontinue glipizide, monitor glucose, IV fluids for dehydration we will hold his lisinopril, [place], Flexeril 3 type II diabetes: We'll continue his metformin as his GFR is greater than 42, but I will can use glipizide at this time. Checks before meals and at bedtime, Humalog scale 4 History of hypertension: Continue metoprolol 5 hyperLipidemia: atorvastatin 6 coronary artery disease: Continue Plavix 7 BPH: Continue tamsulosin 8 Low back pain: Hold Flexeril and [place] this time 9 GI prophylaxis: I will add Pepcid 10 DVT prophylaxis: Subcutaneous heparin 11hyperkalemia: Resolved, hold potassium I will await nephrology consultation, medication changes as above, a.m. labs, I will reevaluate in 24 hours
[2016-11-08] MEDS: FOLIC ACID 1 MG TAB PO SCH (13:30)
[2016-11-08 14:11] VITALS: BMI 27.6
[2016-11-08] MEDS: FAMOTIDINE 20 MG TAB PO SCH (15:28)
[2016-11-08] MEDS: HEPARIN SODIUM,PORCINE 5,000 UNIT/ML 1 ML VIAL SQ SCH ×2 (15:28→23:29)
[2016-11-08] MEDS: CYCLOBENZAPRINE 10 MG TAB PO PRN ×2 (16:11→23:29)
[2016-11-08 17:21] LABS: Glucose,Whole Blood 150 mg/dL (75-99)
--- NOTE | 2016-11-08 19:15 | CONS ---
REASON FOR CONSULTATION: Renal failure. HISTORY OF PRESENT ILLNESS: Patient is a 75-year-old male who was admitted to the hospital yesterday with complaints of weakness and not being able to walk and get around. Patient stated he was extremely tired and fatigued. He denied any fevers or chills. His blood pressure was 106 mmHg systolic with heart rate of 92. Patient's serum creatinine was 1.79. It went up to around 2.0 and now it is back down to 1.63. Patient was on lisinopril which is now discontinued. He is also maintained on IV fluids at 125 mL/hour. He states that he has had good urine output and he is feeling better. Patient denies any prior history of kidney diseases. No history of use of NSAIDs. Past medical history is significant for: 1. Hypertension. 2. Type 2 diabetes. 3. Coronary artery disease. 4. Brain aneurysm. PAST SURGICAL HISTORY: 1. Coronary artery bypass surgery. 2. Repair of brain aneurysm. SOCIAL HISTORY: Negative for smoking, drug abuse or alcohol abuse. Medications include: 1. Lipitor. 2. Plavix. 3. Synthroid. 4. Folic acid. 5. Flexeril. 6. Lisinopril. 7. Flomax. 8. Toprol. 9. K-Dur. 10. Glucotrol. ALLERGIES: NONE. On examination, patient is comfortable. Awake, alert, oriented x3. Not in any acute distress. Blood pressure is 120/69, heart rate 81 per minute. Patient is afebrile. EXAMINATION OF THE HEART: S1 and S2. EXAMINATION OF LUNGS: Bilateral breath sounds are heard. Abdomen is soft, non-tender. Examination of lower extremities shows no significant edema. [employer] exam is grossly intact. Patient is moving all 4 extremities. Labs show sodium 143, potassium 4.9. BUN of 49, serum creatinine 1.63. CO2 is 15. ASSESSMENT: 1. Acute kidney injury, prerenal, associated with hypotension, hypoperfusion. Patient's renal function is slightly improved. He is appropriately off of the ANASTASIIA inhibitors and maintained on IV fluids, which I will continue for now. His UA shows trace protein and trace blood. He does have significant hyaline and granular casts, suggesting some degree of acute tubular necrosis as well. We will check an ultrasound of the kidneys as well. 2. Rule out chronic kidney disease. 3. Diabetes. 4. Hypertension. His blood pressure is currently low. 5. Intravascular volume depletion, maintained on IV fluids. PLAN: Check ultrasound of the kidneys. Repeat labs in a.m. Continue off of ANASTASIIA inhibitors. Continue with IV fluids. Thank you for this consultation. Will continue to follow the patient with you during his hospitalization. ALEX
--- NOTE | 2016-11-08 20:19 | US ---
EXAMINATION TYPE: US kidneys/renal and bladder DATE OF EXAM: 11/08/2016 COMPARISON: CT in PACS CLINICAL HISTORY: renal failure. EXAM MEASUREMENTS: Right Kidney: 9.4 x 5.6 x 5.9 cm Left Kidney: 10.4 x 5.7 x 5.2 cm Right Kidney: No hydronephrosis or masses seen Left Kidney: No hydronephrosis or masses seen Bladder: wnl Bilateral Jets seen: No, bilateral jets not visualized after 3 minutes of scanning There is no ascites. Cortical medullary differentiation is maintained. IMPRESSION: Renal sizes as described.
[2016-11-08 20:39] LABS: Glucose,Whole Blood 94 mg/dL (75-99)
[2016-11-08] MEDS: ATORVASTATIN 40 MG TAB PO SCH (21:55)
[2016-11-08] MEDS: TAMSULOSIN 0.4 MG CAP.ER.24H PO SCH (21:55)
[2016-11-09] MEDS: DEXTROSE 5%-0.9% NACL 1,000 ML IV SCH ×4 (00:52→13:50)
[2016-11-09] MEDS: LEVOTHYROXINE 75 MCG TAB PO SCH (06:26)
[2016-11-09 07:11] LABS: Glucose,Whole Blood 97 mg/dL (75-99)
[2016-11-09] MEDS: metFORMIN 500 MG TAB PO SCH ×2 (08:07→17:23)
[2016-11-09] MEDS: CLOPIDOGREL 75 MG TAB PO SCH (08:10)
[2016-11-09] MEDS: FAMOTIDINE 20 MG TAB PO SCH (08:10)
[2016-11-09] MEDS: METOPROLOL SUCCINATE (ER) 25 MG TAB.ER.24H PO SCH (08:10)
[2016-11-09] MEDS: HEPARIN SODIUM,PORCINE 5,000 UNIT/ML 1 ML VIAL SQ SCH ×2 (08:10→17:23)
[2016-11-09 08:48] LABS: Basophils % (A) 1 %; CH 31.4; CHCM 34.6; Eosinophils # (A) 0.2 k/uL (0-0.7); Eosinophils % (A) 3 %; HCT 44.6 % (39.0-53.0); HDW 2.86; HGB 15.3 gm/dL (13.0-17.5); Luc % (Auto) 1; Lymphocytes # (A) 1.3 k/uL (1.0-4.8); Lymphocytes % (A) 18 %; MCH 31.2 pg (25.0-35.0); MCHC 34.3 g/dL (31.0-37.0); MCV 91.2 fL (80.0-100.0); Mean Platelet Volume 8.3; Monocytes # (A) 0.5 k/uL (0-1.0); Monocytes % (A) 6 %; Neutrophils # (A) 5.2 k/uL (1.3-7.7); Neutrophils % (A) 71 %; RBC 4.89 m/uL (4.30-5.90); RDW 13.7 % (11.5-15.5); WBC 7.4 k/uL (3.8-10.6); WBC (Perox) 7.41
[2016-11-09 09:47] LABS: Anion Gap 12 mmol/L; Blood Urea Nitrogen 24 mg/dL (9-20); Calcium 8.7 mg/dL (8.4-10.2); Carbon Dioxide 18 mmol/L (22-30); Chloride 110 mmol/L (98-107); Glucose 89 mg/dL (74-99); Non-African American GFR(MDRD) >60 (>60 ml/min/1.73 sqM); Potassium 4.3 mmol/L (3.5-5.1); Sodium 140 mmol/L (137-145)
[2016-11-09] MEDS: FOLIC ACID 1 MG TAB PO SCH (12:27)
[2016-11-09 12:29] LABS: Glucose,Whole Blood 135 mg/dL (75-99)
--- NOTE | 2016-11-09 14:31 | P.PN ---
Subjective This is a pleasant 75-year-old white male one on the practice. Family indicates the past several days he has been taking increased trouble walking, some confusion, and generalized weakness. He was transported to the ER by his family for evaluation. Emergency room workup found that he had a significantly elevated BUN and creatinine. Now admitted for further workup. At this time he is awake and alert, but oriented [address] only. He is unsure the exact date and responds with November 07, 1916 he quickly corrects himself. He denies any chest pain, pressure, significant shortness of breath. He describes recent issues as feeling more weak and just not right in the head. 11/09/2016 Pt is more alert. Pt states he gets confused and hallucinates, but then is oriented x 3. Labs much better today. suspect meds on hold. Pt denies any CP/Pressure/SOB Objective - Vital Signs Vital signs: Vital Signs Temp 97.0 F L 11/09/16 07:00 Pulse 96 11/09/16 07:00 Resp 20 11/09/16 07:00 BP 154/91 11/09/16 07:00 Pulse Ox 97 11/09/16 07:00 Intake & Output 11/08/16 11/09/16 11/09/16 18:59 06:59 18:59 Output Total 425 Balance -425 Weight 82.554 kg Output: Urine 425 Other: Voiding Method Urinal Urinal Urinal # Voids 1 1 # Bowel Movements 3 - Exam GENERAL: well-nourished and in no acute distress. Has hard time sitting up due to back pain NECK: Normal range of motion, supple without lymphadenopathy or JVD, no thyromegaly LUNGS: Breath sounds clear to auscultation bilaterally and equal. No wheezes rales or rhonchi. HEART: Regular rate and rhythm without murmurs, rubs or gallops.S1S2 Normal ABDOMEN: Soft, nontender, normoactive bowel sounds. No guarding, no rebound. No masses appreciated. EXTREMITIES: Normal range of motion, no pitting or edema. No clubbing or cyanosis. NEUROLOGICAL: Cranial nerves II through XII grossly intact. Normal speech, awake alert and oriented 2.5 PSYCH: Normal mood, normal affect. SKIN: Warm, Dry, normal turgor, no rashes or lesions noted. - Labs CBC & Chem 7: 11/09/16 07:56 11/09/16 07:56 Labs: Abnormal Lab Results - Last 24 Hours (Table) 11/08/16 11/09/16 11/09/16 Range/Units 17:11 07:56 12:27 Chloride 110 H (98-107) mmol/L Carbon Dioxide 18 L (22-30) mmol/L BUN 24 H (9-20) mg/dL POC Glucose (mg/dL) 150 H 135 H (75-99) mg/dL Microbiology - Last 24 Hours (Table) 11/07/16 15:48 Urine Culture - Final Urine,Catheterized 11/07/16 15:20 Blood Culture - Preliminary Blood No Growth after 24 hours Assessment and Plan Plan: 1 Acute renal failure unknown cause, possibly hypotension: We'll consult nephrology. Admission BUN 52/1.79, currently 49/1.63, continue IV fluids of D5 normal saline @125 mL an hour originally normal saline was changed to solution due to hypoglycemia 2 Episodic confusion: Related to dehydration to hypotension and/or hypoglycemia. Discontinue glipizide, monitor glucose, IV fluids for dehydration we will hold his lisinopril, [place], Flexeril, consult neurology 3 type II diabetes: We'll continue his metformin as his GFR is greater than 42, but I will can use glipizide at this time. Checks before meals and at bedtime, Humalog scale 4 History of hypertension: Continue metoprolol 5 hyperLipidemia: atorvastatin 6 coronary artery disease: Continue Plavix 7 BPH: Continue tamsulosin 8 Low back pain: Hold Flexeril and [place] this time 9 GI prophylaxis: I will add Pepcid 10 DVT prophylaxis: Subcutaneous heparin 11hyperkalemia: Resolved, hold potassium I will await consults, I will reevaluate in 24 hours, MMSE testing
--- NOTE | 2016-11-09 14:48 | PN ---
Patient is seen for followup for acute injury, it was mainly prerenal. Patient's serum creatinine was at 1.79, it did go up to 2 mg/dL. He is currently maintained on IV fluids. His creatinine is down to 0.95. Patient was hypotensive and he was on insulin which are now on hold. This morning, however, he is confused and is very different from last evening when I ( ). There is no fever. Blood pressure on examination is 154/91, heart rate is 96 per minute, ( ). Examination of the heart, S1, S2. Examination of the lungs , bilateral breath sounds are heard, decreased at the lung bases. Abdomen is soft, nontender. Examination of the lower extremities show no edema. Patient is moving all 4 extremities but he is confused. Labs show sodium 140, potassium 4.3, BUN 24, creatinine 0.95, hemoglobin 15.3 g/ dL. ASSESSMENT: 1. Acute kidney injury, prerenal, currently improved. 2. Hypertension with episodes of hypotension, currently blood pressure is slightly on the high side. Patient may be agitated. He is maintained on IV fluids which we can decrease. 3. Hypoglycemia. Patient continues to require D5 0.9 to maintain blood sugar. 4. History of benign prostatic hypertrophy. 5. Altered mentation. Patient is not receiving any pain medications. He has no focal signs on exam. He is maintained on Flexeril which is p.r.n. medication. Otherwise, there are no other pain meds on board. Consider CT of the head and hold the Flexeril for now until mentations is better. As well decrease the IV fluids since blood pressure is not low anymore. MTDD
[2016-11-09 17:09] LABS: Glucose,Whole Blood 113 mg/dL (75-99)
[2016-11-09 20:50] LABS: Glucose,Whole Blood 125 mg/dL (75-99)
[2016-11-09] MEDS ORDERED: LORazepam 2 MG/ML SYRINGE IV STA (21:34)
[2016-11-09] MEDS: ATORVASTATIN 40 MG TAB PO SCH (22:10)
[2016-11-09] MEDS: TAMSULOSIN 0.4 MG CAP.ER.24H PO SCH (22:11)
[2016-11-10] MEDS: HEPARIN SODIUM,PORCINE 5,000 UNIT/ML 1 ML VIAL SQ SCH ×4 (00:03→22:10)
[2016-11-10] MEDS: DEXTROSE 5%-0.9% NACL 1,000 ML IV SCH ×4 (00:03→20:50)
[2016-11-10] MEDS: LEVOTHYROXINE 75 MCG TAB PO SCH (06:25)
[2016-11-10 07:40] LABS: Glucose,Whole Blood 128 mg/dL (75-99)
[2016-11-10] MEDS: POTASSIUM CHLORIDE ER 10 MEQ TAB.ER.PRT PO SCH (08:19)
[2016-11-10] MEDS: FAMOTIDINE 20 MG TAB PO SCH (08:19)
[2016-11-10] MEDS: metFORMIN 500 MG TAB PO SCH ×2 (08:19→17:21)
[2016-11-10] MEDS: METOPROLOL SUCCINATE (ER) 25 MG TAB.ER.24H PO SCH (08:19)
[2016-11-10] MEDS: CLOPIDOGREL 75 MG TAB PO SCH (08:19)
[2016-11-10 10:09] LABS: Basophils # (A) 0.1 k/uL (0-0.2); Basophils % (A) 1 %; CH 31.7; CHCM 36.1; Eosinophils # (A) 0.2 k/uL (0-0.7); Eosinophils % (A) 4 %; HCT 42.1 % (39.0-53.0); HDW 2.88; HGB 15.4 gm/dL (13.0-17.5); Luc # (Auto) 0.11; Luc % (Auto) 2; Lymphocytes # (A) 1.1 k/uL (1.0-4.8); Lymphocytes % (A) 17 %; MCH 32.2 pg (25.0-35.0); MCHC 36.5 g/dL (31.0-37.0); MCV 88.3 fL (80.0-100.0); Mean Platelet Volume 8.2; Monocytes # (A) 0.5 k/uL (0-1.0); Monocytes % (A) 7 %; Neutrophils # (A) 4.6 k/uL (1.3-7.7); Neutrophils % (A) 70 %; RBC 4.77 m/uL (4.30-5.90); RDW 13.7 % (11.5-15.5); WBC 6.5 k/uL (3.8-10.6); WBC (Perox) 6.37
[2016-11-10 10:21] LABS: Anion Gap 10 mmol/L; Blood Urea Nitrogen 13 mg/dL (9-20); Calcium 8.9 mg/dL (8.4-10.2); Carbon Dioxide 19 mmol/L (22-30); Chloride 110 mmol/L (98-107); Glucose 146 mg/dL (74-99); Non-African American GFR(MDRD) >60 (>60 ml/min/1.73 sqM); Potassium 4.2 mmol/L (3.5-5.1); Sodium 139 mmol/L (137-145)
--- NOTE | 2016-11-10 10:33 | P.PN ---
Subjective Patient is seen in follow-up for acute kidney injury. His creatinine was down to 0.95 as of yesterday. He remains somewhat confused and is alert and oriented 2. Denies vomiting or diarrhea. Denies chest pain or shortness of breath. Hemodynamically stable. Vital signs are stable. General: The patient appeared well nourished and normally developed. HEENT: Head exam is unremarkable. Neck is without jugular venous distension. LUNGS: Lungs are clear to auscultation and percussion. Breath sounds decreased. HEART: Rate and Rhythm are regular. First and second heart sounds normal. No murmurs, rubs or gallops. ABDOMEN: Abdominal exam reveals normal bowel sounds. Non-tender and non- distended. No evidence of peritonitis. EXTREMITITES: No clubbing, cyanosis, or edema. Objective - Vital Signs Vital signs: Vital Signs Temp 98.9 F 11/10/16 07:00 Pulse 86 11/10/16 07:00 Resp 19 11/10/16 07:00 BP 151/92 11/10/16 07:00 Pulse Ox 93 L 11/10/16 07:00 Intake & Output 11/09/16 11/10/16 11/10/16 18:59 06:59 18:59 Output Total 250 700 Balance -250 -700 Output: Urine 250 700 Other: Voiding Method Urinal Urinal Urinal # Voids 1 # Bowel Movements 0 - Labs CBC & Chem 7: 11/10/16 09:50 11/09/16 07:56 Labs: Abnormal Lab Results - Last 24 Hours (Table) 11/09/16 11/09/16 11/09/16 Range/Units 12:27 17:07 20:49 POC Glucose (mg/dL) 135 H 113 H 125 H (75-99) mg/dL 11/10/16 Range/Units 07:23 POC Glucose (mg/dL) 128 H (75-99) mg/dL Microbiology - Last 24 Hours (Table) 11/07/16 15:20 Blood Culture - Preliminary Blood No Growth after 48 hours Assessment and Plan Plan: Assessment: #1. Nonoliguric acute kidney injury prerenal in nature. Resolved. Patanol 0.95 as of yesterday. #2. Altered mental status. Appears improved compared to yesterday. Flexeril is currently held. Neurology recommendations pending. #3. Diabetes mellitus. Patient was hypoglycemic which is now resolved. #4. Hx of BPH. Plan: Continue with D5 0.9 for now. I will further decrease the rate to 50 mL an hour. Continue to hold Flexeril for now. Follow-up neurology recommendations.
--- NOTE | 2016-11-10 10:44 | P.PN ---
Subjective This is a pleasant 75-year-old white male one on the practice. Family indicates the past several days he has been taking increased trouble walking, some confusion, and generalized weakness. He was transported to the ER by his family for evaluation. Emergency room workup found that he had a significantly elevated BUN and creatinine. Now admitted for further workup. At this time he is awake and alert, but oriented [address] only. He is unsure the exact date and responds with November 07, 1916 he quickly corrects himself. He denies any chest pain, pressure, significant shortness of breath. He describes recent issues as feeling more weak and just not right in the head. 11/09/2016 Pt is more alert. Pt states he gets confused and hallucinates, but then is oriented x 3. Labs much better today. suspect meds on hold. Pt denies any CP/Pressure/SOB 05/13/2016: Overnight patient was very confused. He required Ativan as he became violent with staff and aggressive. This morning is somnolent, but easily arousable. He appears oriented and his normal self. Objective - Vital Signs Vital signs: Vital Signs Temp 98.9 F 11/10/16 07:00 Pulse 86 11/10/16 07:00 Resp 19 11/10/16 07:00 BP 151/92 11/10/16 07:00 Pulse Ox 93 L 11/10/16 07:00 Intake & Output 11/09/16 11/10/16 11/10/16 18:59 06:59 18:59 Output Total 250 700 Balance -250 -700 Output: Urine 250 700 Other: Voiding Method Urinal Urinal Urinal # Voids 1 # Bowel Movements 0 - Exam GENERAL: well-nourished and in no acute distress. Somnolent but easily arousable. NECK: Normal range of motion, supple without lymphadenopathy or JVD, no thyromegaly LUNGS: Breath sounds clear to auscultation bilaterally and equal. No wheezes rales or rhonchi. HEART: Regular rate and rhythm without murmurs, rubs or gallops.S1S2 Normal ABDOMEN: Soft, nontender, normoactive bowel sounds. No guarding, no rebound. No masses appreciated. EXTREMITIES: Normal range of motion, no pitting or edema. No clubbing or cyanosis. NEUROLOGICAL: Cranial nerves II through XII grossly intact. Normal speech, awake alert and oriented 2.5 PSYCH: Normal mood, normal affect. SKIN: Warm, Dry, normal turgor, no rashes or lesions noted. - Labs CBC & Chem 7: 11/10/16 09:50 11/10/16 09:50 Labs: Abnormal Lab Results - Last 24 Hours (Table) 11/09/16 11/09/16 11/09/16 Range/Units 12:27 17:07 20:49 Chloride (98-107) mmol/L Carbon Dioxide (22-30) mmol/L Glucose (74-99) mg/dL POC Glucose (mg/dL) 135 H 113 H 125 H (75-99) mg/dL 11/10/16 11/10/16 Range/Units 07:23 09:50 Chloride 110 H (98-107) mmol/L Carbon Dioxide 19 L (22-30) mmol/L Glucose 146 H (74-99) mg/dL POC Glucose (mg/dL) 128 H (75-99) mg/dL Microbiology - Last 24 Hours (Table) 11/07/16 15:20 Blood Culture - Preliminary Blood No Growth after 48 hours Assessment and Plan Plan: 1 Acute renal failure secondary to dehydration, resolved: Hep-Lock IV fluids, continue to monitor intake 2 Episodic delirium: 0.5 mg Ativan, IV push for significant agitation, weight on neurology consultation, suspect some underlying dementia, we'll order Mini- Mental Status Examination 3 type II diabetes: We'll continue his metformin him a Accu-Cheks, discontinue D5 IV fluids 4 hypertension: Continue metoprolol, restart lisinopril 5 hyperLipidemia: atorvastatin 6 coronary artery disease: Continue Plavix 7 BPH: Continue tamsulosin 8 Low back pain: Hold Flexeril and [place] this time 9 GI prophylaxis: I will add Pepcid 10 DVT prophylaxis: Subcutaneous heparin 11hyperkalemia: Resolved, hold potassium 12 debility: We'll consult PT, OT, and expect he'll need placement I will await consults, I will reevaluate in 24 hours, MMSE testing
[2016-11-10] MEDS: FOLIC ACID 1 MG TAB PO SCH (11:41)
[2016-11-10] MEDS: LISINOPRIL 20 MG TAB PO SCH (11:42)
--- NOTE | 2016-11-10 12:12 | CT ---
EXAMINATION TYPE: CT brain wo con DATE OF EXAM: 11/10/2016 COMPARISON: 01/18/2016 HISTORY: 75-year-old male with Confusion TECHNIQUE: Examination was done in axial plane without intravenous contrast. Coronal and sagittal r econstructions performed. CT DLP: 1073 mGycm Automated exposure control for dose reduction was used. FINDINGS: There is no evidence of acute intracranial hemorrhage, acute ischemic changes, mass, mass-effect, or extra-axial fluid collection. There is no effacement of cerebral sulci or basal subarachnoid cister ns. There is no midline shift. [place]-white matter distinction is preserved. Redemonstrated left sided craniotomy flap. Mild generalized supratentorial volume loss with secondary prominence to the ventricular system. Shy lar prior exam with mild patchy white matter hypodensity suggesting chronic small vessel ischemic dis ease. 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 Orbits and globes are intact. IMPRESSION: 1. Stable cerebral atrophy. Mild ventriculomegaly likely on an ex vacuo basis. No acute intracranial abnormality seen. 2. 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 Consider further MRA evaluation. 3. Old left-sided craniotomy flap.
[2016-11-10 12:14] LABS: Glucose,Whole Blood 148 mg/dL (75-99)
[2016-11-10 17:29] LABS: Glucose,Whole Blood 130 mg/dL (75-99)
[2016-11-10 21:17] LABS: Glucose,Whole Blood 99 mg/dL (75-99)
[2016-11-10] MEDS: ATORVASTATIN 40 MG TAB PO SCH (22:09)
[2016-11-10] MEDS: TAMSULOSIN 0.4 MG CAP.ER.24H PO SCH (22:09)
[2016-11-11] MEDS: LEVOTHYROXINE 75 MCG TAB PO SCH (06:55)
[2016-11-11 07:26] LABS: Glucose,Whole Blood 99 mg/dL (75-99)
[2016-11-11 07:45] VITALS: PULSE 84; RESP 16
[2016-11-11] MEDS: METOPROLOL SUCCINATE (ER) 25 MG TAB.ER.24H PO SCH (08:56)
[2016-11-11] MEDS: POTASSIUM CHLORIDE ER 10 MEQ TAB.ER.PRT PO SCH (08:56)
[2016-11-11] MEDS: HEPARIN SODIUM,PORCINE 5,000 UNIT/ML 1 ML VIAL SQ SCH (08:56)
[2016-11-11] MEDS: metFORMIN 500 MG TAB PO SCH (08:57)
[2016-11-11] MEDS: LISINOPRIL 20 MG TAB PO SCH (08:57)
[2016-11-11] MEDS: FAMOTIDINE 20 MG TAB PO SCH (08:57)
[2016-11-11] MEDS: CLOPIDOGREL 75 MG TAB PO SCH (08:57)
[2016-11-11 09:06] LABS: Anion Gap 10 mmol/L; Blood Urea Nitrogen 17 mg/dL (9-20); Calcium 8.7 mg/dL (8.4-10.2); Carbon Dioxide 20 mmol/L (22-30); Chloride 109 mmol/L (98-107); Glucose 93 mg/dL (74-99); Non-African American GFR(MDRD) >60 (>60 ml/min/1.73 sqM); Sodium 139 mmol/L (137-145)
[2016-11-11 09:12] LABS: Potassium 4.8 mmol/L (3.5-5.1)
--- NOTE | 2016-11-11 10:55 | CONS ---
DATE OF CONSULTATION: 11/10/2016 CHIEF COMPLAINT: Altered mental status. HISTORY OF PRESENT ILLNESS: Mr Albarado is a pleasant 75-year-old male who is being evaluated today on 11/10/16 by the Neurologist Service per the request of Dr. Spann for altered mental status. The patient was brought into [facility] emergency room after he was found to be somewhat confused by his family. The patient was also having some generalized fatigue. No fever or chills were reported. In the emergency room, a laboratory work-up revealed hyperkalemia and renal insufficiency as his potassium was 5.6 and his BUN and creatinine were 52 and 1.79 respectively. He was felt to be having metabolic encephalopathy and was admitted for further workup and management and started on IV hydration. His urinalysis also showed 17 WBCs with trace leukocyte esterase. On day 2 and 3 of his hospitalization, hew as having continued mental status changes and agitation. Yesterday, he was in soft restraints due to his agitation. A Neurology consultation was obtained due to this and a CT scan of the brain was ordered. I did review his CT scan of the brain which showed generalized atrophy with secondary ventriculomegaly. There were concerns for a possible aneurysm in the basilar system measuring approximately 6.6 mm. His repeat chemistry panel from this morning showed resolution of his hyperkalemia and azotemia. At the time of my evaluation, the patient is sitting in his bed and eating dinner. According to the nursing staff, he has been significantly improved today. He had been receiving [place] and Flexeril for history of low back pain and these were held as of yesterday morning. He denies any low back pain at this time. PAST MEDICAL HISTORY: Chronic lumbago, diabetes, hypertension, coronary artery bypass grafting, coronary artery disease, history of brain aneurysm repair. FAMILY HISTORY: Noncontributory. SOCIAL HISTORY: He denies any tobacco, alcohol or drug use. Home mediations reviewed in the chart. ALLERGIES: No known drug allergies. REVIEW OF SYSTEMS: CONSTITUTIONAL: Negative. EYES: Negative. ENT: Negative. CARDIOVASCULAR: Negative. RESPIRATORY: Negative. NEUROLOGICAL: As mentioned above. GASTROINTESTINAL: Positive for occasional heartburn. GENITOURINARY: Negative. MUSCULOSKELETAL: Positive for recurrent low back pain and recurrent joint pain. PSYCHIATRIC: Negative. DERMATOLOGIC: Negative. ENDOCRINE: Positive for diabetes and hypothyroidism. PHYSICAL EXAM: Vital signs show a temperature of 97.9, pulse 82, respirations 19, blood pressure 112/69. GENERAL APPEARANCE: The patient is a well-developed elderly male who appears to be in no acute distress. HEENT: Normocephalic, atraumatic, no facial asymmetry is seen. Neck is supple with no masses felt. CARDIOVASCULAR: Regular rate and rhythm. ABDOMEN: Nontender, nondistended. Extremities showed no edema or clubbing. NEUROLOGICAL EXAM: The patient is alert, aware and oriented x3. Speech and language are normal. No lateralizing weakness is seen. Sensory exam is normal to light touch in all 4 extremities. No tremors or seizure-like activity is seen. No facial asymmetry is noticed on cranial nerve testing. IMPRESSION: 1. Altered mental status, improved. 2. Multifactorial encephalopathy. 3. Questionable intracranial aneurysm. 4. Acute urinary tract infection. 5. Hyperkalemia, resolved. 6. Renal insufficiency, resolved. RECOMMENDATION: The patient altered mental status is significantly improved at this time. This was likely multifactorial with infectious etiology, metabolic etiology and toxic etiology. He does have evidence of a urinary tract infection and I do recommend antibiotic therapy for this. His metabolic encephalopathy was likely due to his renal insufficiency which has resolved with IV hydration as the patient was likely dehydrated. From a toxic etiology standpoint, I do recommend holding [place] and Flexeril. The patient has not received any analgesics since yesterday morning and he denies any low back pain. An EEG has been ordered. As for his CT scan of the brain findings showing possible basilar artery aneurysm, I will order an MRA of the brain without contrast. Continue neuro checks. I will continue to follow with you. Further recommendations to follow. Thank you for allowing me to participate in the care of your patient. If you have any questions, please feel free to contact me. ALEX
--- NOTE | 2016-11-11 11:24 | MR ---
EXAMINATION TYPE: MR angio head wo con DATE OF EXAM: 11/11/2016 COMPARISON: CT brain from yesterday. HISTORY: AMS, abnormal CT TECHNIQUE: Time of flight images focusing on the [place] were performed without contrast.. 2-D and 3-D postprocessing imaging is performed. FINDINGS: Imaging does not include distal vertebral arteries seen better on recent CT with dominant r ight vertebral artery identified. Visualized basilar artery shows tortuous course to left of midline in mid segment. No aneurysmal change is seen with particular attention to area of CT concern near bas ilar tip as there is prominence related to high branching right posterior cerebral artery. Hypoplasti c posterior communicating arteries are noted bilaterally. Images of the anterior circulation show patent anterior communicating artery. No significant focal st enosis or aneurysmal change is present. Age-related atrophy is noted in visualized brain parenchyma. IMPRESSION: No aneurysmal change at the level of the [place] including area of CT concern ba silar tip
[2016-11-11] MEDS: FOLIC ACID 1 MG TAB PO SCH (12:23)
--- NOTE | 2016-11-11 13:54 | P.PN ---
Subjective This is a pleasant 75-year-old white male one on the practice. Family indicates the past several days he has been taking increased trouble walking, some confusion, and generalized weakness. He was transported to the ER by his family for evaluation. Emergency room workup found that he had a significantly elevated BUN and creatinine. Now admitted for further workup. At this time he is awake and alert, but oriented [address] only[address] He is unsure the exact date and responds with November 07, 1915 he quickly corrects himself. He denies any chest pain, pressure, significant shortness of breath. He describes recent issues as feeling more weak and just not right in the head. 11/09/2016 Pt is more alert. Pt states he gets confused and hallucinates, but then is oriented x 3. Labs much better today. suspect meds on hold. Pt denies any CP/Pressure/SOB 11/10/2016: Overnight patient was very confused. He required Ativan as he became violent with staff and aggressive. This morning is somnolent, but easily arousable. He appears oriented and his normal self. 11/11/2016: Overnight patient's been much more appropriate. He still has occasional hallucinations. He feels that he has strong strength but complains of fullness in his head. He denies any nausea vomiting, chest pains, chest pressures, shortness of breath. We discussed him going to [facility] As soon as a bed is available Objective - Vital Signs Vital signs: Vital Signs Temp 96.3 F L 11/11/16 07:00 Pulse 84 11/11/16 08:00 Resp 16 11/11/16 08:00 BP 144/71 11/11/16 07:00 Pulse Ox 96 11/11/16 07:00 Intake & Output 11/10/16 11/11/16 11/11/16 18:59 06:59 18:59 Intake Total 150 Output Total 250 250 Balance -250 -100 Weight 82.554 kg Intake: Oral 150 Output: Urine 250 250 Other: Voiding Method Urinal Urinal Urinal # Voids 3 1 1 # Bowel Movements 0 - Exam GENERAL: well-nourished and in no acute distress. Awake and appropriate NECK: Normal range of motion, supple without lymphadenopathy or JVD, no thyromegaly LUNGS: Breath sounds clear to auscultation bilaterally and equal. No wheezes rales or rhonchi. HEART: Regular rate and rhythm without murmurs, rubs or gallops.S1S2 Normal ABDOMEN: Soft, nontender, normoactive bowel sounds. No guarding, no rebound. No masses appreciated. EXTREMITIES: Normal range of motion, no pitting or edema. No clubbing or cyanosis. NEUROLOGICAL: Cranial nerves II through XII grossly intact. Normal speech, awake alert and oriented 3 PSYCH: Normal mood, normal affect. SKIN: Warm, Dry, normal turgor, no rashes or lesions noted. - Labs CBC & Chem 7: 11/10/16 09:50 11/11/16 07:35 Labs: Abnormal Lab Results - Last 24 Hours (Table) 11/10/16 11/11/16 Range/Units 17:20 07:35 Chloride 109 H (98-107) mmol/L Carbon Dioxide 20 L (22-30) mmol/L POC Glucose (mg/dL) 130 H (75-99) mg/dL Microbiology - Last 24 Hours (Table) 11/07/16 15:20 Blood Culture - Preliminary Blood No Growth after 72 hours Assessment and Plan Plan: 1 Acute renal failure secondary to dehydration, resolved: Hep-Lock IV fluids, continue to monitor intake 2 Episodic delirium: 0.5 mg Ativan, IV push for significant agitation, weight on neurology consultation, suspect some underlying dementia, However [place] status examination was normal. 3 type II diabetes: We'll continue his metformin/Accu-Cheks, 4 hypertension: Continue metoprolol, restart lisinopril 5 hyperLipidemia: atorvastatin 6 coronary artery disease: Continue Plavix 7 BPH: Continue tamsulosin 8 Low back pain: Hold Flexeril and [place] this time 9 GI prophylaxis: I will add Pepcid 10 DVT prophylaxis: Subcutaneous heparin 11hyperkalemia: Resolved, hold potassium 12 debility:continue PT, OT, and expect ECF soon I will await consults, I will reevaluate in 24 hours,
--- NOTE | 2016-11-11 14:00 | P.DS ---
Providers Date of admission: 11/07/16 17:15 Expected date of discharge: 11/11/16 Attending physician: Reginald Spann Consults: 11/08/16 09:29 Consult Physician Routine Consulting Provider: Edith Doe Consult Reason/Comments: ATN Do you want consulting provider notified?: Yes 11/09/16 14:19 Consult Physician Routine Consulting Provider: Nicole Ash Consult Reason/Comments: confusion Do you want consulting provider notified?: Yes Primary care physician: Reginald Spann [facility] Course: This is a pleasant 75-year-old white male one on the practice. Family indicates the past several days he has been taking increased trouble walking, some confusion, and generalized weakness. He was transported to the ER by his family for evaluation. Emergency room workup found that he had a significantly elevated BUN and creatinine. Now admitted for further workup. At this time he is awake and alert, but oriented [address] only. He is unsure the exact date and responds with November 07, 1915 he quickly corrects himself. He denies any chest pain, pressure, significant shortness of breath. He describes recent issues as feeling more weak and just not right in the head. 11/09/2016 Pt is more alert. Pt states he gets confused and hallucinates, but then is oriented x 3. Labs much better today. suspect meds on hold. Pt denies any CP/Pressure/SOB 11/10/2016: Overnight patient was very confused. He required Ativan as he became violent with staff and aggressive. This morning is somnolent, but easily arousable. He appears oriented and his normal self. 11/11/2016: Overnight patient's been much more appropriate. He still has occasional hallucinations. He feels that he has strong strength but complains of fullness in his head. He denies any nausea vomiting, chest pains, chest pressures, shortness of breath. We discussed him going to [facility] As soon as a bed is available Final diagnosis 1 Acute renal failure secondary to dehydration, resolved 2 Episodic delirium, resolved 3 type II diabetes 4 hypertension 5 hyperLipidemia 6 coronary artery disease 7 BPH 8 Low back pain 9 hyperkalemia: Resolved, 10 debility Patient Condition at Discharge: Fair Plan - Discharge Summary New Discharge Prescriptions: New Famotidine [Pepcid] 20 mg PO DAILY tab Continue metFORMIN HCL 1,000 mg PO BID Tamsulosin HCl [Flomax] 0.4 mg PO HS Levothyroxine Sodium [Synthroid] 75 mcg PO DAILY Folic Acid 1 mg PO DAILY Clopidogrel [Plavix] 75 mg PO DAILY Atorvastatin [Lipitor] 40 mg PO HS Lisinopril 20 mg PO BID glipiZIDE XL [Glucotrol XL] 5 mg PO DAILY Potassium Chloride ER [K-Dur 10] 10 meq PO DAILY Metoprolol Succinate [Toprol XL] 25 mg PO DAILY Cyclobenzaprine [Flexeril] 10 mg PO TID PRN PRN Reason: Pain Discontinued HYDROcodone/APAP 10-325MG [[place] 10-325] 1 tab PO Q6H PRN #10 tab PRN Reason: Pain Discharge Medication List Atorvastatin [Lipitor] 40 mg PO HS 01/18/16 [History] Clopidogrel [Plavix] 75 mg PO DAILY 01/18/16 [History] Folic Acid 1 mg PO DAILY 01/18/16 [History] Levothyroxine Sodium [Synthroid] 75 mcg PO DAILY 01/18/16 [History] Tamsulosin HCl [Flomax] 0.4 mg PO HS 01/18/16 [History] metFORMIN HCL 1,000 mg PO BID 01/18/16 [History] Lisinopril 20 mg PO BID 05/25/16 [History] Cyclobenzaprine [Flexeril] 10 mg PO TID PRN 11/07/16 [History] Metoprolol Succinate [Toprol XL] 25 mg PO DAILY 11/07/16 [History] Potassium Chloride ER [K-Dur 10] 10 meq PO DAILY 11/07/16 [History] glipiZIDE XL [Glucotrol XL] 5 mg PO DAILY 11/07/16 [History] Famotidine [Pepcid] 20 mg PO DAILY tab 11/11/16 [Rx] Follow up Appointment(s)/Referral(s): Reginald Spann MD [Primary Care Provider] - 1 Week Patient Instructions/Handouts: Acute Kidney Injury (DC) Activity/Diet/Wound Care/Special Instructions: Cardiac, diabetic diet. Discharge Disposition: TRANSFER TO SNF/ECF
[2016-11-11 15:06] VITALS: BP 111/71; TEMP 96.8
--- NOTE | 2016-12-03 12:34 | EEG ---
DATE OF SERVICE: 11/11/2016 REASON FOR TESTING: Altered mental status. DESCRIPTION OF THE PROCEDURE: This EEG was performed using a 21 channel digital electroencephalograph, following international 10-20 system. DESCRIPTION OF THE RECORDING: From the beginning of the tracing, note the patient's eyes closed, the background rhythm was mostly consisting of 6-7 Hz theta frequency in the posterior occipital leads. No obvious asymmetry is seen. Photic stimulation was performed with no driving response seen. No pathological waves were elicited. Hyperventilation was not performed. The patient does reach stage 2 of sleep during the tracing and occasional sleep spindles are seen. Frequent movement artifacts and muscle artifacts are seen. No epileptiform discharges were noticed. His EKG lead showed a regular rate and rhythm. INTERPRETATION: This asleep and awake EEG is abnormal due to the presence of generalized slowing of the background rhythm, mostly in the theta range. This is consistent with mild to moderate encephalopathy. No epileptiform discharges were seen. The absence of epileptiform discharges does not rule out the diagnosis of epilepsy, therefore, clinical correlation is recommended. HARPALD
== END 2016-11-11 15:33 | DRG 682 ==
LOC: EC 12:26 → 4MS4W 17:15
PROVIDERS: ADMIT Family Medicine; ATTEND Family Medicine
DX: N17.0 Acute kidney failure with tubular necrosis (principal); G93.41 Metabolic encephalopathy; E11.649 Type 2 diabetes mellitus with hypoglycemia without coma; N39.0 Urinary tract infection, site not specified; E87.5 Hyperkalemia; E86.0 Dehydration; E78.5 Hyperlipidemia, unspecified; I10 Essential (primary) hypertension; R41.0 Disorientation, unspecified; M54.5 Low back pain; I25.10 Atherosclerotic heart disease of native coronary artery without angina pectoris; N40.0 Benign prostatic hyperplasia without lower urinary tract symptoms; Z78.1 Physical restraint status; Z79.02 Long term (current) use of antithrombotics/antiplatelets; Z79.899 Other long term (current) drug therapy; Z95.1 Presence of aortocoronary bypass graft; G89.29 Other chronic pain
CPT/HCPCS: 36415; 51798; 70450; 70544; 71020; 76770; 80048; 80053; 81001; 82550; 82553; 83605; 83735; 84484; 85025; 85610; 85730; 87040; 87086; 87324; 93005; 95819; 96361; 96365; 99285

== ENCOUNTER 2016-11-29 21:29 | Inpatient (IN) | payer MEDICARE ==
--- NOTE | 2016-11-29 21:40 | ED ---
General Adult HPI - General Stated complaint: Chest Pain Time Seen by Provider: 11/29/16 21:31 Source: RN notes reviewed, old records reviewed - History of Present Illness Initial comments: This is a 75-year-old male here for evaluation, patient for strain secondary to a clinical condition as well as recent. Patient was apparently found after falling. Patient is unable to give history of complaint, history of patient from EMS and patient's chart - Related Data Home Medications Medication Instructions Recorded Confirmed Atorvastatin [Lipitor] 40 mg PO HS 01/18/16 11/29/16 Clopidogrel [Plavix] 75 mg PO DAILY 01/18/16 11/29/16 Folic Acid 1 mg PO DAILY 01/18/16 11/29/16 Levothyroxine Sodium [Synthroid] 75 mcg PO DAILY 01/18/16 11/29/16 Tamsulosin HCl [Flomax] 0.4 mg PO HS 01/18/16 11/29/16 metFORMIN HCL 1,000 mg PO BID 01/18/16 11/29/16 Lisinopril 20 mg PO BID 05/25/16 11/29/16 Cyclobenzaprine [Flexeril] 10 mg PO TID PRN 11/07/16 11/29/16 Metoprolol Succinate [Toprol XL] 25 mg PO DAILY 11/07/16 11/29/16 Potassium Chloride ER [K-Dur 10] 10 meq PO DAILY 11/07/16 11/29/16 glipiZIDE XL [Glucotrol XL] 5 mg PO DAILY 11/07/16 11/29/16 Acetaminophen Tab [Tylenol] 650 mg PO Q6H PRN 11/29/16 11/29/16 Previous Rx's Medication Instructions Recorded Famotidine [Pepcid] 20 mg PO DAILY tab 11/11/16 Allergies Allergy/AdvReac Type Severity Reaction Status Date / Time No Known Allergies Allergy Verified 11/29/16 22:05 Review of Systems ROS Statement: Those systems with pertinent positive or pertinent negative responses have been documented in the HPI. ROS Other: All systems not noted in ROS Statement are negative. Past Medical History Past Medical History: Diabetes Mellitus, Hypertension History of Any Multi-Drug Resistant Organisms: None Reported Past Surgical History: Coronary Bypass/CABG Additional Past Surgical History / Comment(s): brain aneursym repair Past Psychological History: No Psychological Hx Reported Smoking Status: Never smoker Past Alcohol Use History: None Reported Past Drug Use History: None Reported General Exam General appearance: alert, in no apparent distress Head exam: Present: atraumatic, normocephalic, normal inspection Eye exam: Present: normal appearance, PERRL, EOMI. Absent: scleral icterus, conjunctival injection, periorbital swelling ENT exam: Present: normal exam, mucous membranes moist Neck exam: Present: normal inspection. Absent: tenderness, meningismus, lymphadenopathy Respiratory exam: Present: normal lung sounds bilaterally. Absent: respiratory distress, wheezes, rales, rhonchi, stridor Cardiovascular Exam: Present: regular rate, normal rhythm, normal heart sounds. Absent: systolic murmur, diastolic murmur, rubs, gallop, clicks GI/Abdominal exam: Present: soft, normal bowel sounds. Absent: distended, tenderness, guarding, rebound, rigid Extremities exam: Present: normal inspection, full ROM, normal capillary refill. Absent: tenderness, pedal edema, joint swelling, calf tenderness Back exam: Present: normal inspection Neurological exam: Present: alert, oriented X3, CN II-XII intact Psychiatric exam: Present: normal affect, normal mood Skin exam: Present: warm, dry, intact, normal color. Absent: rash Course Vital Signs 11/29/16 11/29/16 11/30/16 21:30 23:47 01:31 Temperature 98.3 F 98.8 F Pulse Rate 106 H 119 H 101 H Pulse Rate [ Pulse Oximetery ] Respiratory 20 16 16 Rate Blood Pressure 142/62 111/59 110/68 Blood Pressure [Left Arm] O2 Sat by Pulse 96 98 98 Oximetry 11/30/16 01:37 Temperature 97.2 F L Pulse Rate Pulse Rate [ 101 H Pulse Oximetery ] Respiratory 18 Rate Blood Pressure Blood Pressure 98/62 [Left Arm] O2 Sat by Pulse 100 Oximetry EKG Findings - EKG Comments: EKG Findings:: EKG shows sinus tachycardia rate 16, GA 164, QRS 128, QTc 462 Medical Decision Making - Medical Decision Making Side formality or severe dehydration, malnutrition failure to thrive acute renal failure hyperkalemia will be admitted for further evaluation and treatment management of elevated potassium - Lab Data Result diagrams: 12/06/16 07:16 12/06/16 07:16 Lab Results 11/29/16 11/29/16 11/30/16 Range/Units 22:05 23:30 00:13 POC Glucose (mg/dL) 122 H (75-99) mg/dL POC Glu Door Furring Installer ID Alyce Quinonez Lactic Ac Sepsis Rflx Y Plasma Lactic Acid Percy 2.4 H* (0.7-2.0) mmol/L - Radiology Data Radiology results: report reviewed (Chest x-ray is negative for acute disease), image reviewed Disposition Clinical Impression: Acute renal insufficiency, Acute kidney injury, Lactic acidosis, Hyperkalemia Disposition: ADMITTED IP TO THIS HOSP Condition: Serious
[2016-11-29] MEDS ORDERED: SODIUM CHLORIDE 0.9% 1,000 ML IV STA ×2 (21:52)
[2016-11-29] MEDS ORDERED: SODIUM CHLORIDE 0.9% 500 ML IV STA (21:52)
[2016-11-29 22:15] LABS: Glucose,Whole Blood 122 mg/dL (75-99)
--- NOTE | 2016-11-29 23:26 | XR ---
EXAM: XR Chest, 2 Views CLINICAL HISTORY: Reason: Chest Pain TECHNIQUE: Frontal and lateral views of the chest. COMPARISON: 11/07/16. FINDINGS: Lungs: Lung volumes remain somewhat shallow. Thin linear atelectasis or scarring at the left base. No superimposed infiltrate. Pleural space: Unremarkable. No effusion or pneumothorax. Heart: The heart size and mediastinal contours are stable including prior median sternotomy. Mediastinum: See above. Bones/joints: Multilevel degenerative changes without acute displaced fracture. Upper abdomen: Right upper quadrant clips suggesting cholecystectomy. IMPRESSION: No new acute intrathoracic abnormality is seen, as above.
[2016-11-30] MEDS ORDERED: SODIUM CHLORIDE 0.9% 1,000 ML IV STA (00:45)
[2016-11-30 02:13] LABS: Creatine Kinase MB 0.3 ng/mL (0.0-2.4); Troponin I <0.012 ng/mL (0.000-0.034)
[2016-11-30 02:18] LABS: Creatine Kinase 40 U/L (55-170)
[2016-11-30 02:48] LABS: Basophils % (A) 0 %; CH 31.7; CHCM 32.4; Eosinophils % (A) 0 %; HCT 42.4 % (39.0-53.0); HDW 2.78; Luc # (Auto) 0.14; Luc % (Auto) 2; Lymphocytes # (A) 0.6 k/uL (1.0-4.8); Lymphocytes % (A) 7 %; MCH 31.5 pg (25.0-35.0); Mean Platelet Volume 8.9; Monocytes # (A) 0.6 k/uL (0-1.0); Monocytes % (A) 7 %; Neutrophils # (A) 7.1 k/uL (1.3-7.7); Neutrophils % (A) 83 %; RBC 4.31 m/uL (4.30-5.90); RDW 14.7 % (11.5-15.5); WBC 8.5 k/uL (3.8-10.6); WBC (Perox) 8.41
[2016-11-30 02:57] LABS: Calcium 8.1 mg/dL (8.4-10.2); Magnesium 1.9 mg/dL (1.6-2.3); Potassium 5.8 mmol/L (3.5-5.1); Total Protein 5.8 g/dL (6.3-8.2)
[2016-11-30 03:00] LABS: HGB 13.6 gm/dL (13.0-17.5)
[2016-11-30 03:01] LABS: MCV 98.4 fL (80.0-100.0)
[2016-11-30 05:58] LABS: INR 1.2 (<1.2); Prothrombin Time 11.9 sec (9.0-12.0)
[2016-11-30 06:22] LABS: Glucose,Whole Blood 118 mg/dL (75-99)
[2016-11-30] MEDS: ENOXAPARIN 40 MG/0.4 ML SYRINGE SQ SCH (08:01)
[2016-11-30 11:39] LABS: Glucose,Whole Blood 108 mg/dL (75-99)
--- NOTE | 2016-11-30 14:17 | CONS ---
REASON FOR CONSULT: Renal failure, hyperkalemia. HISTORY OF PRESENT ILLNESS: Patient is a 75-year-old male who was admitted to the hospital with complaints of weakness, not feeling well. He was recently hospitalized with acute kidney injury, intravascular volume depletion. Patient was found to have a potassium of 5.8 and serum creatinine of 1.7 mg/dL at the time of admission. His previous creatinine was 0.94. He was at 2.1 mg/dL yesterday. Currently patient is maintained on IV fluids. His blood pressure with low with systolic around 97 to 101 mmHg. PAST MEDICAL HISTORY: Significant for hypertension, previously on ANASTASIIA inhibitors which were held during last visit, diabetes, coronary artery disease , history of brain aneurysm. PAST SURGICAL HISTORY: Coronary artery bypass surgery, repair of brain aneurysm. SOCIAL HISTORY: Negative for smoking, drug abuse or alcohol abuse. Medications at home previously: Lipitor, Plavix, Synthroid, folic acid, Flexeril, lisinopril was held on last admission, Slow-max, Toprol, Glucotrol, previously patient had also been on potassium. ALLERGIES: None. On examination, patient is comfortable, he is lying in bed. He is not in any acute distress. Blood pressure 97/63, 102 per minute. He is afebrile. Examination of the heart S1, S2. Examination of the lungs, bilateral breath sounds are heard. Abdomen is soft, nontender. Examination of the lower extremities showed no significant edema. [employer] LINGUIST exam is grossly intact. Labs show sodium of 140, potassium 5.8, chloride 117, CO2 is 11, BUN is 74, serum creatinine is 1.7, hemoglobin is 13.6 gm/dL. ASSESSMENT: 1. Acute kidney injury, prerenal. Will continue with aggressive IV hydration. 2. Hyperkalemia associated with acute kidney injury and metabolic acidosis, rule out adrenal insufficiency. 3. Hypotension, rule out adrenal insufficiency. 4. History of hypertension, currently off of antihypertensive medications. PLAN: Start IV fluids, start oral sodium bicarb, check random cortisol level. Will give Kayexalate x1 and repeat labs in a.m. Thank you for this consultation, will continue to follow the patient with you during his hospitalization. ALEX
[2016-11-30] MEDS: SODIUM CHLORIDE 0.45% 1,000 ML IV SCH (14:33)
[2016-11-30] MEDS: SODIUM POLYSTYRENE SULFONATE 15 GM/60 ML BOTTLE PO STA ×2 (14:54→15:02)
[2016-11-30] MEDS: SODIUM BICARBONATE TAB 650 MG TAB PO SCH ×3 (14:57→21:53)
[2016-11-30] MEDS ORDERED: ACETAMINOPHEN TAB 325 MG TAB PO PRN (15:49)
--- NOTE | 2016-11-30 15:52 | P.HPIM ---
History of Present Illness H&P Date: 11/30/16 Chief Complaint: Malnutrition failure to thrive renal failure chest pain This is a 75-year-old male known to Dr. Spann admitted with dehydration and malnutrition failure to thrive renal failure hyperkalemia. Following the nursing care facility somewhat unresponsive Review of Systems Constitutional: Reports lethargy, Reports weakness Cardiovascular: Reports as per HPI Respiratory: Reports as per HPI Gastrointestinal: Reports as per HPI Genitourinary: Reports as per HPI Integumentary: Reports as per HPI, Reports brittle nails, Reports onychomycosis Neurological: Reports change in mentation, Reports hearing difficulties, Reports weakness Psychiatric: Reports confusion Past Medical History Past Medical History: Diabetes Mellitus, Hypertension Additional Past Medical History / Comment(s): BPH History of Any Multi-Drug Resistant Organisms: None Reported Past Surgical History: Coronary Bypass/CABG Additional Past Surgical History / Comment(s): brain aneursym repair Past Anesthesia/Blood Transfusion Reactions: No Reported Reaction Past Psychological History: No Psychological Hx Reported Smoking Status: Never smoker Past Alcohol Use History: None Reported Past Drug Use History: None Reported Medications and Allergies Home Medications Medication Instructions Recorded Confirmed Type Atorvastatin [Lipitor] 40 mg PO HS 01/18/16 11/29/16 History Clopidogrel [Plavix] 75 mg PO DAILY 01/18/16 11/29/16 History Folic Acid 1 mg PO DAILY 01/18/16 11/29/16 History Levothyroxine Sodium [Synthroid] 75 mcg PO DAILY 01/18/16 11/29/16 History Tamsulosin HCl [Flomax] 0.4 mg PO HS 01/18/16 11/29/16 History metFORMIN HCL 1,000 mg PO BID 01/18/16 11/29/16 History Lisinopril 20 mg PO BID 05/25/16 11/29/16 History Cyclobenzaprine [Flexeril] 10 mg PO TID PRN 11/07/16 11/29/16 History Metoprolol Succinate [Toprol XL] 25 mg PO DAILY 11/07/16 11/29/16 History Potassium Chloride ER [K-Dur 10] 10 meq PO DAILY 11/07/16 11/29/16 History glipiZIDE XL [Glucotrol XL] 5 mg PO DAILY 11/07/16 11/29/16 History Acetaminophen Tab [Tylenol Tab] 650 mg PO Q6H PRN 11/29/16 11/29/16 History Allergies Allergy/AdvReac Type Severity Reaction Status Date / Time No Known Allergies Allergy Verified 11/29/16 22:05 Physical Exam Osteopathic Statement: *. No significant issues noted on an osteopathic structural exam other than those noted in the History and Physical/Consult. Vitals: Vital Signs Temp Pulse Pulse Resp BP BP Pulse Ox 11/30/16 15:08 105 H 16 11/30/16 15:07 98.1 F 105 H 16 89/55 98 11/30/16 12:00 98.1 F 102 H 18 97/63 99 11/30/16 08:57 96 11/30/16 08:00 98.2 F 102 H 18 101/68 99 11/30/16 04:00 97.4 F L 95 17 97/68 98 11/30/16 01:37 97.2 F L 101 H 18 98/62 100 11/30/16 01:31 98.8 F 101 H 16 110/68 98 11/29/16 23:47 119 H 16 111/59 98 11/29/16 21:30 98.3 F 106 H 20 142/62 96 Intake and Output 11/30/16 11/30/16 11/30/16 06:59 14:59 22:59 Other: Voiding Method Incontinent Incontinent Incontinent # Voids 1 3 # Bowel Movements 0 Weight 76.5 kg 76.5 kg Patient Weight 12/01/16 06:59 Weight 76.5 kg General: [Patient awake, alert and oriented times 3. Patient in no acute distress.] HEENT: [PERRL. EOMI. No pharyngeal erythema or exudate.] Neck: [No adenopathy.] Cardiac: [Heart regular in rate and rhythm. No S3. No S4. No clicks, rubs. No murmur.] Lungs: [Clear to auscultation bilaterally.] Abdomen: [No mass. No organomegaly. Bowel sounds presnt and normoactive in all 4 quadrants.] Extremes: [No edema no cyanosis no claudication normal pulses, onychomycosis bilaterally : [] Musculoskeletal: [No joint erythema, edema or tenderness.] Skin: [No rash.] Neurologic: [No lateralizing deficits. CN II - XII grossly intact.] Lymphatic: [No adenopathy.] Results CBC & Chem 7: 11/30/16 02:35 11/30/16 02:35 Labs: Abnormal Lab Results - Last 24 Hours (Table) 11/29/16 11/29/16 11/30/16 Range/Units 22:05 23:30 01:15 Plt Count (150-450) k/uL Lymphocytes # (1.0-4.8) k/uL INR (<1.2) D-Dimer (<0.60) mg/L FEU Potassium (3.5-5.1) mmol/L Chloride (98-107) mmol/L Carbon Dioxide (22-30) mmol/L BUN (9-20) mg/dL Creatinine (0.66-1.25) mg/dL Glucose (74-99) mg/dL POC Glucose (mg/dL) 122 H (75-99) mg/dL Plasma Lactic Acid Percy 2.4 H* (0.7-2.0) mmol/L Calcium (8.4-10.2) mg/dL Total Creatine Kinase 40 L (55-170) U/L Total Protein (6.3-8.2) g/dL Albumin (3.5-5.0) g/dL Lipase (23-300) U/L 11/30/16 11/30/16 11/30/16 Range/Units 02:35 02:35 05:37 Plt Count 142 L (150-450) k/uL Lymphocytes # 0.6 L (1.0-4.8) k/uL INR 1.2 H (<1.2) D-Dimer 1.21 H (<0.60) mg/L FEU Potassium 5.8 H (3.5-5.1) mmol/L Chloride 117 H (98-107) mmol/L Carbon Dioxide 11 L (22-30) mmol/L BUN 74 H (9-20) mg/dL Creatinine 1.70 H (0.66-1.25) mg/dL Glucose 109 H (74-99) mg/dL POC Glucose (mg/dL) (75-99) mg/dL Plasma Lactic Acid Percy (0.7-2.0) mmol/L Calcium 8.1 L (8.4-10.2) mg/dL Total Creatine Kinase (55-170) U/L Total Protein 5.8 L (6.3-8.2) g/dL Albumin 2.9 L (3.5-5.0) g/dL Lipase 338 H (23-300) U/L 11/30/16 11/30/16 Range/Units 06:20 11:37 Plt Count (150-450) k/uL Lymphocytes # (1.0-4.8) k/uL INR (<1.2) D-Dimer (<0.60) mg/L FEU Potassium (3.5-5.1) mmol/L Chloride (98-107) mmol/L Carbon Dioxide (22-30) mmol/L BUN (9-20) mg/dL Creatinine (0.66-1.25) mg/dL Glucose (74-99) mg/dL POC Glucose (mg/dL) 118 H 108 H (75-99) mg/dL Plasma Lactic Acid Percy (0.7-2.0) mmol/L Calcium (8.4-10.2) mg/dL Total Creatine Kinase (55-170) U/L Total Protein (6.3-8.2) g/dL Albumin (3.5-5.0) g/dL Lipase (23-300) U/L Thrombosis Risk Factor Assmnt - DVT/VTE Prophylaxis DVT/VTE Prophylaxis: Mechanical Prophylaxis ordered - Choose All That Apply Each Risk Factor Represents 2 Points: Age 61-74 years, Patient confined to bed Other congenital or acquired thrombophilia - If yes, enter type in comment: No Thrombosis Risk Factor Assessment Total Risk Factor Score: 4 Thrombosis Risk Factor Assessment Level: Moderate Risk Assessment and Plan (1) Acute kidney injury Status: Acute (2) Acute renal insufficiency Status: Acute (3) Hyperkalemia Status: Acute (4) Lactic acidosis Status: Acute (5) Acute exacerbation of chronic low back pain Status: Acute (6) Dehydration Status: Acute Plan: Patient severe dehydration and malnutrition failure to thrive renal failure hyperkalemia currently being admitted for evaluation and treatment Nephrology consult ordered
[2016-11-30 16:25] LABS: Glucose,Whole Blood 107 mg/dL (75-99)
[2016-11-30 21:00] LABS: Glucose,Whole Blood 105 mg/dL (75-99)
[2016-11-30] MEDS: ATORVASTATIN 40 MG TAB PO SCH (21:53)
[2016-11-30] MEDS: TAMSULOSIN 0.4 MG CAP.ER.24H PO SCH (21:53)
[2016-12-01] MEDS: SODIUM CHLORIDE 0.45% 1,000 ML IV SCH ×3 (04:26→18:39)
[2016-12-01 06:21] LABS: Glucose,Whole Blood 94 mg/dL (75-99)
[2016-12-01] MEDS: LEVOTHYROXINE 75 MCG TAB PO SCH (06:52)
[2016-12-01 08:39] LABS: Anion Gap 10 mmol/L; Blood Urea Nitrogen 39 mg/dL (9-20); Calcium 8.9 mg/dL (8.4-10.2); Carbon Dioxide 15 mmol/L (22-30); Chloride 118 mmol/L (98-107); Glucose 94 mg/dL (74-99); Non-African American GFR(MDRD) >60 (>60 ml/min/1.73 sqM); Potassium 5.5 mmol/L (3.5-5.1); Sodium 143 mmol/L (137-145)
[2016-12-01 09:03] LABS: Mean Platelet Volume 8.5
[2016-12-01] MEDS: ENOXAPARIN 40 MG/0.4 ML SYRINGE SQ SCH (09:07)
[2016-12-01] MEDS: SODIUM BICARBONATE TAB 650 MG TAB PO SCH ×3 (09:08→21:39)
[2016-12-01] MEDS: FAMOTIDINE 20 MG TAB PO SCH (09:08)
[2016-12-01] MEDS: FOLIC ACID 1 MG TAB PO SCH (09:08)
[2016-12-01] MEDS: CLOPIDOGREL 75 MG TAB PO SCH (09:08)
[2016-12-01] MEDS: METOPROLOL SUCCINATE (ER) 25 MG TAB.ER.24H PO SCH (09:08)
[2016-12-01 09:18] LABS: CH 31.4; CHCM 34.1; HCT 42.3 % (39.0-53.0); HDW 2.94; HGB 14.7 gm/dL (13.0-17.5); MCH 32.2 pg (25.0-35.0); MCHC 34.7 g/dL (31.0-37.0); RBC 4.56 m/uL (4.30-5.90); RDW 14.2 % (11.5-15.5)
[2016-12-01 09:21] LABS: MCV 92.7 fL (80.0-100.0)
--- NOTE | 2016-12-01 09:26 | P.PN ---
Subjective Patient is seen for follow-up for acute kidney injury. He remains on IV fluids. According to nursing staff patient has not been eating much he does not really get out of bed he is just been laying in bed. He has had good urine output. Repeat labs show serum creatinine down to 1.0. Metabolic acidosis is improved slightly at CO2 at 15. Hyperkalemia is slightly better. Patient has refused the Kayexalate from yesterday. Objective - Vital Signs Vital signs: Vital Signs Temp 98.6 F 12/01/16 08:00 Pulse 109 H 12/01/16 08:00 Resp 16 12/01/16 08:00 BP 97/62 12/01/16 08:00 Pulse Ox 100 12/01/16 08:00 Intake & Output 11/30/16 12/01/16 12/01/16 18:59 06:59 18:59 Intake Total 800 Balance 800 Weight 76.5 kg 78.5 kg Intake: IV 800 Sodium Chloride 0.45% 1, 800 000 ml @ 100 mls/hr IV . Q10H [facility] Rx#:[id number] Other: Voiding Method Incontinent Incontinent Incontinent # Voids 3 1 # Bowel Movements 0 - Exam On examination patient is comfortable he is easily arousable and does communicate and answer questions appropriately but otherwise does not want to talk much and does not get out of bed. Blood pressure 97/62 heart rate 10 9/m he is afebrile Examination of the heart S1 and S2 Exertion lungs bilateral breath sounds are heard Abdomen is soft nontender Examination lower ex Mittie shows no evidence of edema. [employer] exam is grossly intact patient is moving all 4 extremities. - Labs CBC & Chem 7: 12/01/16 07:46 12/01/16 07:46 Labs: Abnormal Lab Results - Last 24 Hours (Table) 11/30/16 11/30/16 11/30/16 Range/Units 11:37 16:23 20:58 Plt Count (150-450) k/uL Potassium (3.5-5.1) mmol/L Chloride (98-107) mmol/L Carbon Dioxide (22-30) mmol/L BUN (9-20) mg/dL POC Glucose (mg/dL) 108 H 107 H 105 H (75-99) mg/dL 12/01/16 12/01/16 Range/Units 07:46 07:46 Plt Count 133 L (150-450) k/uL Potassium 5.5 H (3.5-5.1) mmol/L Chloride 118 H (98-107) mmol/L Carbon Dioxide 15 L (22-30) mmol/L BUN 39 H (9-20) mg/dL POC Glucose (mg/dL) (75-99) mg/dL Microbiology - Last 24 Hours (Table) 11/29/16 23:30 Blood Culture - Preliminary Blood No Growth after 24 hours Assessment and Plan Plan: Assessment 1. Acute kidney injury secondary to hypo-tension hypovolemia. Currently improved. 2. Metabolic acidosis non-gap secondary to renal failure maintained on oral sodium bicarb which we will continue. It is improving 3. Hyperkalemia associated with acute kidney injury and metabolic acidosis. This is slightly better. Patient refused the Kayexalate yesterday. We will maintain him on low potassium diet. And repeat labs in a.m. Currently patient is not on any medications to predispose to hyperkalemia. His blood sugars have not been running too high. 4. Generalized weakness secondary to hypotension hypovolemia. Patient does not want to eat or drink much. He has also had weight loss according to his . This will need to be further worked up. I'm not sure if he is depressed. Plan Continue IV fluids. Maintain patient on low potassium diet. Repeat labs in a.m. Continue to encourage increase oral intake.
[2016-12-01 11:28] LABS: Glucose,Whole Blood 129 mg/dL (75-99)
[2016-12-01 16:37] LABS: Glucose,Whole Blood 100 mg/dL (75-99)
--- NOTE | 2016-12-01 19:42 | P.PN ---
Subjective Principal diagnosis: Shortness of breath Mr. Albarado is awake alert extremely hard of hearing he is refusing to eat refusing to drink refusing to take medications. He told the nurse practitioner in my office on their last encounter and he wishes to . His IV recently came out and the nurse was unable to restart the IV, the patient wishes not to have another IV placed. The conversation I had with patient's nurse stated his was wanting a PEG tube placed to feed him with. Yesterday when I went in to see Elida Albarado is so hard of hearing well he was sleeping and could not wake him today he is awake and alert. Objective - Vital Signs Vital signs: Vital Signs Temp 97.6 F 12/01/16 15:34 Pulse 87 12/01/16 15:34 Resp 16 12/01/16 15:34 BP 99/70 12/01/16 15:34 Pulse Ox 98 12/01/16 15:34 Intake & Output 12/01/16 12/01/16 12/02/16 06:59 18:59 06:59 Intake Total 800 1420 Balance 800 1420 Weight 78.5 kg Intake: IV 800 1200 Sodium Chloride 0.45% 1, 800 1200 000 ml @ 100 mls/hr IV . Q10H [facility] Rx#:[id number] Oral 220 Other: Voiding Method Incontinent Incontinent # Voids 1 1 # Bowel Movements 1 - Exam General: [Patient awake, alert and oriented times 3. Patient in no acute distress.] HEENT: [PERRL. EOMI. No pharyngeal erythema or exudate.] Neck: [No adenopathy.] Cardiac: [Heart regular in rate and rhythm. No S3. No S4. No clicks, rubs. No murmur.] Lungs: [Clear to auscultation bilaterally.] Abdomen: [No mass. No organomegaly. Bowel sounds presnt and normoactive in all 4 quadrants.] Extremes: [No edema no cyanosis no claudication normal pulses] : [] Musculoskeletal: [No joint erythema, edema or tenderness.] Skin: [No rash.] Neurologic: [No lateralizing deficits. CN II - XII grossly intact.] Lymphatic: [No adenopathy.] - Labs CBC & Chem 7: 12/01/16 07:46 12/01/16 07:46 Labs: Abnormal Lab Results - Last 24 Hours (Table) 11/30/16 12/01/16 12/01/16 Range/Units 20:58 07:46 07:46 Plt Count 133 L (150-450) k/uL Potassium 5.5 H (3.5-5.1) mmol/L Chloride 118 H (98-107) mmol/L Carbon Dioxide 15 L (22-30) mmol/L BUN 39 H (9-20) mg/dL POC Glucose (mg/dL) 105 H (75-99) mg/dL 12/01/16 12/01/16 Range/Units 11:23 16:31 Plt Count (150-450) k/uL Potassium (3.5-5.1) mmol/L Chloride (98-107) mmol/L Carbon Dioxide (22-30) mmol/L BUN (9-20) mg/dL POC Glucose (mg/dL) 129 H 100 H (75-99) mg/dL Microbiology - Last 24 Hours (Table) 11/29/16 23:30 Blood Culture - Preliminary Blood No Growth after 24 hours Assessment and Plan (1) Acute kidney injury Narrative/Plan: Nephrology was consulted and patient was being rehydrated he has good urine output, creatinine is now down to 1.0 . Patient is refusing Kayexalate yesterday but has been refusing food and refusing liquids. We will consult psychiatry Status: Acute (2) Acute renal insufficiency Narrative/Plan: Improved Status: Acute (3) Hyperkalemia Narrative/Plan: Hyperkalemia has improved slightly potassium is currently 5.5 Status: Acute (4) Lactic acidosis Narrative/Plan: Patient is been refusing medications Status: Acute (5) Acute exacerbation of chronic low back pain Status: Inactive (6) Dehydration Status: Acute Plan: Patient severe dehydration and malnutrition failure to thrive renal failure hyperkalemia currently being admitted for evaluation and treatment Nephrology consult ordered Patient has been refusing meds refusing food refusing to eat, suspect depression we'll consult psychiatry Time with Patient: Greater than 30
[2016-12-01 20:50] LABS: Glucose,Whole Blood 93 mg/dL (75-99)
[2016-12-01] MEDS: ATORVASTATIN 40 MG TAB PO SCH (21:39)
[2016-12-01] MEDS: TAMSULOSIN 0.4 MG CAP.ER.24H PO SCH (21:39)
[2016-12-02] MEDS: SODIUM CHLORIDE 0.45% 1,000 ML IV SCH ×2 (03:26→17:06)
[2016-12-02 05:50] LABS: Glucose,Whole Blood 92 mg/dL (75-99)
[2016-12-02] MEDS: LEVOTHYROXINE 75 MCG TAB PO SCH (06:34)
--- NOTE | 2016-12-02 10:11 | P.CN ---
Psychiatric Consult - . Consult date: 12/02/16 Consult:: 12/02/16 10:03 Chief Complaint: Malnutrition failure to thrive renal failure chest pain This is a 75-year-old male known to Dr. Spann admitted with dehydration and malnutrition failure to thrive renal failure hyperkalemia. Following the nursing care facility somewhat unresponsive 12/02/16 10:04 DATE OF SERVICE: 12/02/2016 IDENTIFYING DATA: This patient is a 75-year-old male admitted to the sixth floor for dehydration, malnutrition and failure to thrive. Psychiatry was consulted as he's been refusing to eat or drink. HISTORY OF PRESENT ILLNESS: The patient presents lying in his bed. Multiple attempts to wake patient up painful stimuli caused him to move a bit and make a noise however he refused to open his eyes. Documentation suggests that he was at a senior care and they had difficulty in awaking him as well. REJI Sneed states that he has not been awake since she has started this shift. Patient has multiple metabolic abnormalities.. PAST PSYCHIATRIC HISTORY: Unknown. PAST MEDICAL HISTORY: Failure to thrive, renal failure,. ALLERGIES: No known ALLERGIES. CHEMICAL DEPENDENCY HISTORY: Unknown. FAMILY PSYCHIATRIC HISTORY: Unknown. FAMILY CHEMICAL DEPENDENCY HISTORY: Unknown. MENTAL STATUS EXAM: Unable to examine patient. IMPRESSIONS: 75-year-old male admitted for failure to thrive, dehydration, malnutrition, metabolic abnormalities. Unclear at this point if this is a temporary mental status change or if this is chronic. Cannot make a mental status or psychiatric evaluation with a person who is not verbal. Patient is not competent to make medical decisions (refuse or accept) R/O Delirium R/O Dementia PLAN: Would recommend that the or other family members seek guardianship in order to dictate medical care. If no family member available would recommend public guardian. Please have mental health social worker speak to in order to start guardianship process..
[2016-12-02 10:25] LABS: Anion Gap 11 mmol/L; Blood Urea Nitrogen 32 mg/dL (9-20); Calcium 9.2 mg/dL (8.4-10.2); Carbon Dioxide 15 mmol/L (22-30); Chloride 117 mmol/L (98-107); Glucose 92 mg/dL (74-99); Non-African American GFR(MDRD) >60 (>60 ml/min/1.73 sqM); Potassium 5.2 mmol/L (3.5-5.1); Sodium 143 mmol/L (137-145)
[2016-12-02] MEDS: SODIUM BICARBONATE TAB 650 MG TAB PO SCH ×2 (10:49→17:06)
[2016-12-02] MEDS: ENOXAPARIN 40 MG/0.4 ML SYRINGE SQ SCH (10:49)
[2016-12-02] MEDS: FAMOTIDINE 20 MG TAB PO SCH (10:49)
[2016-12-02] MEDS: CLOPIDOGREL 75 MG TAB PO SCH (10:49)
[2016-12-02] MEDS: METOPROLOL SUCCINATE (ER) 25 MG TAB.ER.24H PO SCH (10:49)
--- NOTE | 2016-12-02 11:23 | PN ---
The patient is seen for follow-up for acute kidney injury which was mainly prerenal. The patient has been started on IV fluids. Renal function has improved with creatinine down from 1.7 to 1.1. The patient has not been eating or drinking much. He is maintained on IV fluids. He may be depressed. Psych consult is currently pending. On examination, the patient is lying in bed. He is not talking much. He did nod to simple questions. Blood pressure is 92/57. Heart rate is 97 per minute. He is afebrile. Examination of the heart, S1, S2. Examination of the lungs bilateral breath sounds are heard. Abdomen is soft, nontender. Examination of the lower extremities shows no evidence of edema. JIG BORER exam shows the patient moving all four extremities. Labs shows sodium 143, potassium 5.2, chloride 117, CO2 15, BUN 32, serum creatinine 1.16. ASSESSMENT: 1. Acute kidney injury prerenal currently improving. Continue with IV fluids as the patient is not eating. 2. Rule out depression, psych consult pending. 3. Metabolic acidosis, maintained on oral sodium bicarb and improved. 4. Hyperkalemia associated with acute kidney injury and acidosis, currently improving. PLAN: May continue with IV fluids, repeat labs in the a.m. MTDD
--- NOTE | 2016-12-02 11:52 | CDI ---
In responding to this query, please exercise your independent professional judgment. The [facility] Coding Staff and Clinical Documentation Specialists appreciate your assistance in clarifying documentation, maintaining compliance with coding guidelines, accurately documenting patients condition and capturing severity of illness. The fact that a question is asked does not imply that any particular answer is desired or expected. Communication forms are a method of clarifying documentation and are not made part of the Legal Health Record. Thank you in advance for your clarification. Last Revision, March 2015 Hari Bobo [address] [place] [address] Documentation Clarification Form Date: 12/02/2016 11:35:00 AM From: Rochelle Lechuga RN, CDS Admit Date: 11/30/2016 12:59:00 AM Patient Name: Wili Albarado Visit Number: [id number] Dr. Alec Carpenter, 75 year old patient admitted for Acute Renal Failure. and Failure to thrive, Malnutrition has been documented in H&P and progress note on 12/01 . History/Risk Factors: DM, HTN, Clinical Indicators: Albumin 2.9, Total Protein 5.8, Dietitian consult: "BMI 25.6, poor appetite, difficulty swallowing, confusion, recommend transition to texture modified diet Labs: Albumin/ Pre albumin/Total Protein: Treatment: Dietitian consult, pureed diet with nectar thick liquids 1:1 supervision, no straws In your professional opinion, can you please clarify if these findings signify one of the following conditions? Mild Protein-Calorie Malnutrition Moderate Protein-Calorie Malnutrition Severe Protein-Calorie Malnutrition Other condition, please specify Unable to determine Please document in your progress notes and discharge summary in order to capture severity of illness and risk of mortality. Include clinical findings that support your diagnosis. FYI: Press F11 to launch patient chart. Thanks you. ALEX
[2016-12-02] MEDS: FOLIC ACID 1 MG TAB PO SCH (12:18)
[2016-12-02 12:21] LABS: Glucose,Whole Blood 92 mg/dL (75-99)
[2016-12-02 16:58] LABS: Glucose,Whole Blood 131 mg/dL (75-99)
--- NOTE | 2016-12-02 18:19 | P.PN ---
Subjective Principal diagnosis: Shortness of breath Mr. Albarado is awake alert extremely hard of hearing he is refusing to eat refusing to drink refusing to take medications. He told the nurse practitioner in my office on their last encounter and he wishes to . His IV recently came out and the nurse was unable to restart the IV, the patient wishes not to have another IV placed. The conversation I had with patient's nurse stated his was wanting a PEG tube placed to feed him with. Yesterday when I went in to see him, mister Albarado is so hard of hearing while he was sleeping and could not wake him today he is awake and alert. Objective - Vital Signs Vital signs: Vital Signs Temp 97.5 F L 12/02/16 16:00 Pulse 87 12/02/16 16:00 Resp 18 12/02/16 16:00 BP 90/70 12/02/16 16:00 Pulse Ox 95 12/02/16 16:00 Intake & Output 12/01/16 12/02/16 12/02/16 18:59 06:59 18:59 Intake Total 1420 0 90 Balance 1420 0 90 Weight 78 kg 78 kg Intake: IV 1200 0 0 Sodium Chloride 0.45% 1, 1200 0 0 000 ml @ 100 mls/hr IV . Q10H [facility] Rx#:[id number] Oral 220 90 Other: Voiding Method Incontinent Incontinent Incontinent # Voids 1 1 1 # Bowel Movements 1 - Exam General: [Patient awake, alert and oriented times 3. Patient in no acute distress.] HEENT: [PERRL. EOMI. No pharyngeal erythema or exudate.] Neck: [No adenopathy.] Cardiac: [Heart regular in rate and rhythm. No S3. No S4. No clicks, rubs. No murmur.] Lungs: [Clear to auscultation bilaterally.] Abdomen: [No mass. No organomegaly. Bowel sounds presnt and normoactive in all 4 quadrants.] Extremes: [No edema no cyanosis no claudication normal pulses] : [] Musculoskeletal: [No joint erythema, edema or tenderness.] Skin: [No rash.] Neurologic: [No lateralizing deficits. CN II - XII grossly intact.] Lymphatic: [No adenopathy.] - Labs CBC & Chem 7: 12/01/16 07:46 12/02/16 09:36 Labs: Abnormal Lab Results - Last 24 Hours (Table) 12/02/16 12/02/16 Range/Units 09:36 16:53 Potassium 5.2 H (3.5-5.1) mmol/L Chloride 117 H (98-107) mmol/L Carbon Dioxide 15 L (22-30) mmol/L BUN 32 H (9-20) mg/dL POC Glucose (mg/dL) 131 H (75-99) mg/dL Microbiology - Last 24 Hours (Table) 11/29/16 23:30 Blood Culture - Preliminary Blood No Growth after 48 hours Assessment and Plan (1) Acute kidney injury Status: Acute (2) Acute renal insufficiency Narrative/Plan: Improved Status: Acute (3) Hyperkalemia Narrative/Plan: Hyperkalemia has improved slightly potassium is currently 5.5 Status: Acute (4) Lactic acidosis Narrative/Plan: Patient is been refusing medications, patient began eating and drinking this evening and became more animated and spoke to me Status: Acute (5) Dehydration Status: Acute Plan: Patient mild dehydration and malnutrition failure to thrive renal failure hyperkalemia currently being admitted for evaluation and treatment Nephrology consult ordered Patient has been refusing meds refusing food refusing to eat, suspect depression we'll consult psychiatry Patient refused to speak to psychiatrist earlier today, however when I saw him today he became much more animated spoke to me responded appropriately to simple questions and tasks, however I do not believe patient is capable of making appropriate decisions when asked more basic decisions about his care E was less than candid about what he wished and basically stops speaking to me when asked about simple things like how he was feeling he became animated again. I discussed future plans with his explained at length about CODE STATUS and she agreed to no CPR no intubation no vasoactive drugs I discussed at length and she understood. We discussed about his guardianship I told her it was important that she talk to the bilingual social worker here at the hospital regarding becoming his guardian and possibly to an ip attorney and she agreed. I also discussed the possibility of placement in a nursing care facility and she at this time thought that that so we will be working to that and
[2016-12-02 20:39] LABS: Glucose,Whole Blood 235 mg/dL (75-99)
[2016-12-02] MEDS: ATORVASTATIN 40 MG TAB PO SCH (22:10)
[2016-12-03] MEDS: TAMSULOSIN 0.4 MG CAP.ER.24H PO SCH ×2 (00:04→20:54)
[2016-12-03] MEDS: SODIUM BICARBONATE TAB 650 MG TAB PO SCH ×4 (00:04→20:53)
[2016-12-03 06:16] LABS: Glucose,Whole Blood 92 mg/dL (75-99)
[2016-12-03] MEDS: SODIUM CHLORIDE 0.45% 1,000 ML IV SCH ×3 (06:16→20:53)
[2016-12-03] MEDS: LEVOTHYROXINE 75 MCG TAB PO SCH (06:16)
[2016-12-03] MEDS: METOPROLOL SUCCINATE (ER) 25 MG TAB.ER.24H PO SCH (09:44)
[2016-12-03] MEDS: ENOXAPARIN 40 MG/0.4 ML SYRINGE SQ SCH (09:44)
[2016-12-03] MEDS: CLOPIDOGREL 75 MG TAB PO SCH (09:44)
[2016-12-03] MEDS: FAMOTIDINE 20 MG TAB PO SCH (09:45)
--- NOTE | 2016-12-03 10:41 | P.PN ---
Subjective Principal diagnosis: This is a 75-year-old residential patient seen in consultation because of acute kidney injury and severe non-gap acidosis. He also had a mild lactic acidosis with 2 mainly modes of lactate. He was deemed to have acute kidney injury from decreased intake and his creatinine has improved with IV hydration from a high of 1.7-1.16 as of yesterday morning. His bicarb went though which was 18 on admission went down to 11 and there has improved to 15. Anion gap within normal range at 10-12. Patient has no diarrhea as best as we can tell. He did not have it in the residential before his arrival here. Currently he claims he is eating well. He is bedridden and grabbed up in blankets because is feeling cold. He denies any abdominal pain nausea vomiting fever chills cough shortness of breath. Objective - Vital Signs Vital signs: Vital Signs Temp 97.1 F L 12/03/16 08:15 Pulse 104 H 12/03/16 08:15 Resp 18 12/03/16 08:15 BP 107/66 12/03/16 08:15 Pulse Ox 99 12/03/16 08:15 Intake & Output 12/02/16 12/03/16 12/03/16 18:59 06:59 18:59 Intake Total 200 Balance 200 Weight 78 kg 81.5 kg Intake: IV 0 Sodium Chloride 0.45% 1, 0 000 ml @ 100 mls/hr IV . Q10H [facility] Rx#:[id number] Oral 200 Other: Voiding Method Incontinent Incontinent Incontinent # Voids 1 1 Examination awake alert oriented. HEENT exam no JVP neck is supple no facial asymmetry Lungs are clear to auscultation percussion good air entry bilaterally Heart sounds are unremarkable for any murmur rub gallop. Abdomen is soft nontender no masses felt. Extremity exam was no edema Neurologically awake alert oriented but generalized weakness and no focal motor deficit. Oriented 3 - Labs CBC & Chem 7: 12/01/16 07:46 12/02/16 09:36 Labs: Abnormal Lab Results - Last 24 Hours (Table) 12/02/16 12/02/16 12/02/16 Range/Units 09:36 16:53 20:37 Potassium 5.2 H (3.5-5.1) mmol/L Chloride 117 H (98-107) mmol/L Carbon Dioxide 15 L (22-30) mmol/L BUN 32 H (9-20) mg/dL POC Glucose (mg/dL) 131 H 235 H (75-99) mg/dL Microbiology - Last 24 Hours (Table) 11/29/16 23:30 Blood Culture - Preliminary Blood No Growth after 72 hours Assessment and Plan Plan: Pression. 1. Acute kidney injury from prerenal because of poor intake, resolved with hydration 2. Non-gap metabolic acidosis secondary to acute kidney injury and possible diarrhea. Initially worsening probably was from the saline and continuing to improve improvement on oral bicarbonate. 3. Depression with refusal to eat and take medications Recommendation. Maintain current bicarbonate we'll just watch him with written intake and output. His IV fluids can be discontinued, once we're sure he is intake is adequate.
[2016-12-03] MEDS: FOLIC ACID 1 MG TAB PO SCH (11:49)
[2016-12-03 12:17] LABS: Glucose,Whole Blood 108 mg/dL (75-99)
--- NOTE | 2016-12-03 12:38 | P.PN ---
Subjective Principal diagnosis: Shortness of breath, failure to thrive, mild malnutrition, patient has been refusing to eat and refusing to take his medicines Mr. Albarado is awake alert extremely hard of hearing he is refusing to eat refusing to drink refusing to take medications. He told the nurse practitioner in my office on their last encounter and he wishes to . His IV recently came out and the nurse was unable to restart the IV, the patient wishes not to have another IV placed. The conversation I had with patient's nurse stated his was wanting a PEG tube placed to feed him with. Yesterday when I went in to see him, mister Albarado is so hard of hearing while he was sleeping and could not wake him today he is awake and alert. Progress note from 12/03/2016 Mr. Albarado has made a remarkable recovery and attitude he is not eating he is now drinking, he appears happy even to see me his metabolic state has significantly improved. I would like psychiatry to reevaluate patient as he is now eating and drinking and carrying on jovial conversations. Made recommendation for his to establish guardianship to avoid future issues like we've dealt with this visit. Objective - Vital Signs Vital signs: Vital Signs Temp 97.1 F L 12/03/16 08:15 Pulse 104 H 12/03/16 08:15 Resp 18 12/03/16 08:15 BP 107/66 12/03/16 08:15 Pulse Ox 99 12/03/16 08:15 Intake & Output 12/02/16 12/03/16 12/03/16 18:59 06:59 18:59 Intake Total 200 200 Balance 200 200 Weight 78 kg 81.5 kg Intake: IV 0 Sodium Chloride 0.45% 1, 0 000 ml @ 100 mls/hr IV . Q10H [facility] Rx#:[id number] Oral 200 200 Other: Voiding Method Incontinent Incontinent Incontinent # Voids 1 1 - Exam General: [Patient awake, alert and oriented times 3. Patient in no acute distress.] HEENT: [PERRL. EOMI. No pharyngeal erythema or exudate.] Neck: [No adenopathy.] Cardiac: [Heart regular in rate and rhythm. No S3. No S4. No clicks, rubs. No murmur.] Lungs: [Clear to auscultation bilaterally.] Abdomen: [No mass. No organomegaly. Bowel sounds presnt and normoactive in all 4 quadrants.] Extremes: [No edema no cyanosis no claudication normal pulses] : [] Musculoskeletal: [No joint erythema, edema or tenderness.] Skin: [No rash.] Neurologic: [No lateralizing deficits. CN II - XII grossly intact.] Lymphatic: [No adenopathy.] - Labs CBC & Chem 7: 12/01/16 07:46 12/02/16 09:36 Labs: Abnormal Lab Results - Last 24 Hours (Table) 12/02/16 12/02/16 12/03/16 Range/Units 16:53 20:37 12:05 POC Glucose (mg/dL) 131 H 235 H 108 H (75-99) mg/dL Microbiology - Last 24 Hours (Table) 11/29/16 23:30 Blood Culture - Preliminary Blood No Growth after 72 hours Assessment and Plan (1) Acute kidney injury Narrative/Plan: Nephrology was consulted and patient was being rehydrated he has good urine output, creatinine is now down to 1.0 . Patient is refusing Kayexalate yesterday but has been refusing food and refusing liquids. We will consult psychiatry Status: Acute (2) Acute renal insufficiency Narrative/Plan: Improved Status: Acute (3) Hyperkalemia Narrative/Plan: Hyperkalemia has improved slightly potassium is currently 5.2 Status: Acute (4) Lactic acidosis Narrative/Plan: Patient is been refusing medications, patient began eating and drinking this evening and became more animated and spoke to me Intake has improved significantly over the last 2 days Status: Acute (5) Dehydration Status: Acute Plan: Patient mild dehydration and malnutrition failure to thrive renal failure hyperkalemia currently being admitted for evaluation and treatment Nephrology consult ordered Patient has been refusing meds refusing food refusing to eat, suspect depression we'll consult psychiatry Patient refused to speak to psychiatrist earlier today(12/01/2016), however when I saw him today he became much more animated spoke to me responded appropriately to simple questions and tasks, however I do not believe patient is capable of making appropriate decisions when asked more basic decisions about his care E was less than candid about what he wished and basically stops speaking to me when asked about simple things like how he was feeling he became animated again. I discussed future plans with his explained at length about CODE STATUS and she agreed to no CPR no intubation no vasoactive drugs I discussed at length and she understood. We discussed about his guardianship I told her it was important that she talk to the social security benefits interviewer here at the hospital regarding becoming his guardian and possibly to an patent prosecution attorney and she agreed. I also discussed the possibility of placement in a nursing care facility and she at this time thought that that so we will be working to that and
--- NOTE | 2016-12-03 15:36 | P.PN ---
Progress Note - Text Interval History: Patient is a 75-year-old male who was seen yesterday in consultation and was unable to participate in the evaluation. Patient was seen by Dr. Boucher yesterday and I was reconsult to today to evaluate the patient. Patient is hard of hearing and did not have his hearing aid in but was resting in bed and was easily awakened. Patient was able to respond to my questions and stated that he had not been eating or drinking at the long term. He states it's because the food was terrible. He reported that he is now eating and drinking, and did eat his breakfast but did not feel like eating lunch because his stomach was slightly upset. Patient reported he had visitors yesterday and enjoyed their visits. Patient denied that he wanted to , stated he did not stop eating for that reason and states that he is going to eat and drink here because he is not ready to "give up the ship". Patient denied that he was feeling suicidal currently and denied feeling depressed. His only complaint to me was that his stomach was slightly upset after he tried to eat lunch. Patient was admitted due to dehydration and failure to thrive and renal failure with hyperkalemia and was somewhat unresponsive at the long term. He denied any prior psychiatric history, no family members were present to provide collaborative information. Mental Status: Appearance/Attitude: Patient was lying in bed and easily aroused , he was not wearing a hearing aid but was able to hear if I spoke into his left ear, he was cooperative. Behavior: Patient did not exhibit any psychomotor agitation. Speech/Language: Patient responded to my questions, he spoke in a slightly loud voice and in a normal rhythm and he was coherent. Thought Process: Patient's responses were goal-directed, he was not exhibiting any loose associations or flight of ideas. Thought Content: Patient denied any auditory hallucinations, visual hallucinations and no delusions were elicited. Patient stated that he did not stop eating because he wanted to but did because he did not like the food. Patient reported that he is "not ready to give up the ship" and is eating and drinking here so that he can feel better. Patient denied feeling depressed or sad. Suicidal/Homicidal Ideation: Denied any current suicidal or homicidal ideation. Sensorium/Cognition: Patient was alert and he was oriented to person, place, situation and knew the month and year. Patient knew the apple picker, could spell world but not backwards and declined serial sevens. He he stated he was feeling tired and did not want me to ask him any further questions. Mood/Affect: Patient's mood was pleasant and his affect was appropriate. Insight/Judgement: Patient's insight and judgment are limited. Assessment: Patient was evaluated today and he was alert and oriented in no evidence of a delirium, patient declined doing serial sevens did not want to participate in repeating 3 items and had difficulty spelling world backwards. Patient has been eating and drinking and reported that he is not ready to give up the ship and did not report feeling depressed and reported no current suicidal ideation. Per the patient's medical record he has a history of coronary artery disease with coronary artery bypass surgery and also repair of a brain aneurysm. He also has a history of type 2 diabetes mellitus, hypertension, hypothyroidism. I reviewed the medical record the patient was admitted twice in October both times with similar presentation of weakness, confusion dehydration and acute renal failure after the second admission in mid October he was transferred to a detention facility. Plan: Patient is not having any symptoms of delirium, I completed some cognitive testing but the patient did not want to complete the rest of the testing. I am unclear what cognitive deficits he may or may not have, he is oriented 3, was able to name the president of [employer] was also stable to spell the word world forward, further testing was not completed because the patient reported he was feeling tired. I agree with the recommendation to obtain guardianship. It is not clear to me why the patient was dehydrated and not eating on his prior admissions when he was living at home, he currently reports he did not like the food at the long term and has been eating here. No psychotropic medication is recommended at this time. Patient's recent MRI of his brain revealed age-related atrophy. Patient is not reporting any symptoms of depression and not voicing any suicidal ideation or wish to , and point of fact patient stated he is not ready to give up the ship and is trying to eat and drink so that he can get his strength back.
[2016-12-03 17:24] LABS: Glucose,Whole Blood 88 mg/dL (75-99)
[2016-12-03] MEDS: ATORVASTATIN 40 MG TAB PO SCH (20:54)
[2016-12-04] MEDS: LEVOTHYROXINE 75 MCG TAB PO SCH (06:05)
[2016-12-04] MEDS: FAMOTIDINE 20 MG TAB PO SCH (09:56)
[2016-12-04] MEDS: ENOXAPARIN 40 MG/0.4 ML SYRINGE SQ SCH (09:56)
[2016-12-04] MEDS: CLOPIDOGREL 75 MG TAB PO SCH (09:56)
[2016-12-04] MEDS: SODIUM BICARBONATE TAB 650 MG TAB PO SCH ×3 (09:56→20:15)
[2016-12-04] MEDS: SODIUM CHLORIDE 0.45% 1,000 ML IV SCH ×2 (09:57→16:40)
[2016-12-04] MEDS: METOPROLOL SUCCINATE (ER) 25 MG TAB.ER.24H PO SCH (09:57)
--- NOTE | 2016-12-04 10:07 | P.PN ---
Subjective Principal diagnosis: This is a 75-year-old [facility] patient seen in consultation because of acute kidney injury and severe non-gap acidosis. He also had a mild lactic acidosis. He was deemed to have acute kidney injury from decreased intake and his creatinine has improved with IV hydration from a high of 1.7-1.16. His non-gap acidosis which is deemed to be from acute kidney injury, actually worsened before improving after starting bicarb and is continuing to slowly improve. This morning is very depressed looking, does not open eyes or follow any commands. Supposedly didn't eat this morning but yesterday he had a better day. Patient has no diarrhea as best as we can tell. He did not have it in the [facility] before his arrival here. Objective - Vital Signs Vital signs: Vital Signs Temp 98.0 F 12/04/16 08:20 Pulse 81 12/04/16 08:20 Resp 18 12/04/16 08:20 BP 106/64 12/04/16 08:20 Pulse Ox 97 12/04/16 08:20 Intake & Output 12/03/16 12/04/16 12/04/16 18:59 06:59 18:59 Intake Total 300 150 Balance 300 150 Weight 83 kg Intake: Oral 300 150 Other: Voiding Method Incontinent Incontinent Incontinent # Voids 1 On examination he a remains very noncooperative to exam. HEENT exam no JVP neck is supple no facial asymmetry pupils are equal and reactive. Lungs are clear to auscultation percussion but poor air entry bilaterally Heart sounds are unremarkable no murmur rub gallop Abdomen soft nontender no masses felt Extremity exam was no edema Neurologically as mentioned about his noncooperative. - Labs CBC & Chem 7: 12/01/16 07:46 12/02/16 09:36 Labs: Abnormal Lab Results - Last 24 Hours (Table) 12/03/16 Range/Units 12:05 POC Glucose (mg/dL) 108 H (75-99) mg/dL Microbiology - Last 24 Hours (Table) 11/29/16 23:30 Blood Culture - Preliminary Blood No Growth after 96 hours Assessment and Plan Plan: Pression. 1. Acute kidney injury from prerenal because of poor intake, resolved with hydration. Creatinine down to 1.16 as of 12/02/2016 2 days ago no labs are available this morning 2. Non-gap metabolic acidosis secondary to acute kidney injury and possible diarrhea. Initially worsening probably was from the saline and continuing to improve on oral bicarbonate. Last bicarb is 15 with an anion gap of 11 3. Depression with refusal to eat and take medications Recommendation. Maintain current bicarbonate we'll just watch him with . His IV fluids can be discontinued, once we're sure he is intake is adequate. We'll check labs today
[2016-12-04] MEDS: FOLIC ACID 1 MG TAB PO SCH (12:18)
[2016-12-04 12:20] LABS: Anion Gap 9 mmol/L; Blood Urea Nitrogen 25 mg/dL (9-20); Calcium 8.7 mg/dL (8.4-10.2); Carbon Dioxide 19 mmol/L (22-30); Chloride 110 mmol/L (98-107); Glucose 91 mg/dL (74-99); Non-African American GFR(MDRD) >60 (>60 ml/min/1.73 sqM); Sodium 138 mmol/L (137-145)
[2016-12-04 12:23] LABS: Potassium 4.5 mmol/L (3.5-5.1)
[2016-12-04 12:24] LABS: Glucose,Whole Blood 92 mg/dL (75-99)
[2016-12-04 17:38] LABS: Glucose,Whole Blood 85 mg/dL (75-99)
[2016-12-04] MEDS: TAMSULOSIN 0.4 MG CAP.ER.24H PO SCH (20:14)
[2016-12-04] MEDS: ATORVASTATIN 40 MG TAB PO SCH (20:15)
[2016-12-04 21:07] LABS: Glucose,Whole Blood 82 mg/dL (75-99)
[2016-12-05] MEDS: SODIUM CHLORIDE 0.45% 1,000 ML IV SCH ×2 (06:12→12:35)
[2016-12-05 06:41] LABS: Glucose,Whole Blood 87 mg/dL (75-99)
[2016-12-05] MEDS: LEVOTHYROXINE 75 MCG TAB PO SCH (06:56)
[2016-12-05] MEDS: CLOPIDOGREL 75 MG TAB PO SCH (08:26)
[2016-12-05] MEDS: SODIUM BICARBONATE TAB 650 MG TAB PO SCH ×3 (08:27→21:52)
[2016-12-05] MEDS: FAMOTIDINE 20 MG TAB PO SCH (08:27)
[2016-12-05] MEDS: ENOXAPARIN 40 MG/0.4 ML SYRINGE SQ SCH (08:28)
[2016-12-05] MEDS: METOPROLOL SUCCINATE (ER) 25 MG TAB.ER.24H PO SCH (08:28)
[2016-12-05 10:35] LABS: Basophils % (A) 1 %; CH 32.6; CHCM 36.1; Eosinophils # (A) 0.2 k/uL (0-0.7); Eosinophils % (A) 3 %; HCT 37.7 % (39.0-53.0); HDW 3.04; Luc % (Auto) 2; Lymphocytes # (A) 1.3 k/uL (1.0-4.8); Lymphocytes % (A) 19 %; MCH 31.5 pg (25.0-35.0); MCHC 34.6 g/dL (31.0-37.0); Mean Platelet Volume 9.3; Monocytes # (A) 0.4 k/uL (0-1.0); Monocytes % (A) 6 %; Neutrophils # (A) 4.7 k/uL (1.3-7.7); Neutrophils % (A) 70 %; RBC 4.15 m/uL (4.30-5.90); RDW 14.7 % (11.5-15.5); WBC 6.7 k/uL (3.8-10.6); WBC (Perox) 7.29
[2016-12-05 10:50] LABS: Anion Gap 10 mmol/L; Blood Urea Nitrogen 25 mg/dL (9-20); Calcium 8.8 mg/dL (8.4-10.2); Carbon Dioxide 17 mmol/L (22-30); Chloride 111 mmol/L (98-107); Glucose 148 mg/dL (74-99); Non-African American GFR(MDRD) >60 (>60 ml/min/1.73 sqM); Potassium 4.7 mmol/L (3.5-5.1); Sodium 138 mmol/L (137-145)
[2016-12-05 12:10] LABS: Glucose,Whole Blood 140 mg/dL (75-99)
[2016-12-05] MEDS: FOLIC ACID 1 MG TAB PO SCH (12:53)
--- NOTE | 2016-12-05 14:05 | P.PN ---
Subjective The patient is a 75-year-old white male, well-known to me. He was discharged from a hospitalization for acute renal failure and [facility] He was stable there. Apparently he became despondent and was not eating or drinking. He once again developed acute renal failure and was admitted here. He is on have some depression regarding his current issues. Currently nephrology is following him. His laboratory studies are much improved. He denies any significant complaints today. Psych and seen as well. Objective - Vital Signs Vital signs: Vital Signs Temp 97.8 F 12/05/16 08:00 Pulse 74 12/05/16 08:00 Resp 18 12/05/16 08:00 BP 110/63 12/05/16 08:00 Pulse Ox 97 12/05/16 08:00 Intake & Output 12/04/16 12/05/16 12/05/16 18:59 06:59 18:59 Intake Total 700 120 Output Total 3 Balance 697 120 Weight 81 kg Intake: Oral 700 120 Output: Urine 3 Other: Voiding Method Incontinent Incontinent Incontinent # Voids 3 1 0 - Exam General: The patient is awake and alert, in no distress, and does not appear acutely ill. Neck: The neck is supple, there is no thyromegaly, lymphadenopathy, tenderness or JVD. Cardiovascular: S1S2 is normal, There is a regular rate and rhythm. No murmur, rub or gallop is appreciated. Respiratory: Lungs are clear to auscultation bilaterally, respirations are non -labored, breath sounds are equal. Gastrointestinal: Soft, non-distended, non-tender abdomen without masses or organomegaly noted. There is no rebound or guarding present. Bowel sounds are unremarkable. Musculoskeletal: Normal ROM, no tenderness, There is no pedal edema. There is no calf tenderness or swelling. No cords were appreciated. Neurological: CN II-XII intact, there are no obvious motor or sensory deficits. Coordination appears grossly intact. Speech is normal.Awake alert and oriented 2 Skin: Skin is warm and dry and no rashes or lesions are noted. - Labs CBC & Chem 7: 12/05/16 10:23 12/05/16 10:23 Labs: Abnormal Lab Results - Last 24 Hours (Table) 12/05/16 12/05/16 12/05/16 Range/Units 10:23 10:23 11:50 RBC 4.15 L (4.30-5.90) m/uL Hct 37.7 L (39.0-53.0) % Chloride 111 H (98-107) mmol/L Carbon Dioxide 17 L (22-30) mmol/L BUN 25 H (9-20) mg/dL Glucose 148 H (74-99) mg/dL POC Glucose (mg/dL) 140 H (75-99) mg/dL Microbiology - Last 24 Hours (Table) 11/29/16 23:30 Blood Culture - Preliminary Blood No Growth after 120 hours Assessment and Plan Plan: 1 Acute renal failure secondary to dehydration, resolved: Hep-Lock IV fluids, continue to monitor intake, Nephrology following 2 Episodic delirium/Dementia: Psych status seems much improved. Most likely some underlying depression leading to failure to thrive.Some underlying dementia cannot be excluded is leading to some of these issues. Psych is recommended a guardian for him. 3 type II diabetes: We'll continue his metformin/Accu-Cheks, 4 hypertension: Continue metoprolol, restart lisinopril 5 hyperLipidemia: atorvastatin 6 coronary artery disease: Continue Plavix 7 BPH: Continue tamsulosin 8 Low back pain: Hold Flexeril and [place] this time 9 GI prophylaxis: I will add Pepcid 10 DVT prophylaxis: Subcutaneous heparin 11 debility:continue PT, OT, and expect ECF soon Wait on social work and guardianship. Plan for ECF.
[2016-12-05 16:02] VITALS: BMI 27.1
[2016-12-05 16:53] LABS: Glucose,Whole Blood 125 mg/dL (75-99)
[2016-12-05] MEDS: metFORMIN 500 MG TAB PO SCH (18:05)
[2016-12-05 20:35] LABS: Glucose,Whole Blood 106 mg/dL (75-99)
[2016-12-05] MEDS: LISINOPRIL 20 MG TAB PO SCH (21:52)
[2016-12-05] MEDS: TAMSULOSIN 0.4 MG CAP.ER.24H PO SCH (21:52)
[2016-12-05] MEDS: ATORVASTATIN 40 MG TAB PO SCH (21:52)
[2016-12-06] MEDS: LEVOTHYROXINE 75 MCG TAB PO SCH (07:32)
[2016-12-06] MEDS: SODIUM CHLORIDE 0.45% 1,000 ML IV SCH ×2 (07:38→20:54)
[2016-12-06] MEDS: ENOXAPARIN 40 MG/0.4 ML SYRINGE SQ SCH (07:40)
[2016-12-06] MEDS: SODIUM BICARBONATE TAB 650 MG TAB PO SCH ×3 (07:40→20:53)
[2016-12-06] MEDS: CLOPIDOGREL 75 MG TAB PO SCH (07:40)
[2016-12-06] MEDS: metFORMIN 500 MG TAB PO SCH ×2 (07:40→18:14)
[2016-12-06] MEDS: METOPROLOL SUCCINATE (ER) 25 MG TAB.ER.24H PO SCH (07:41)
[2016-12-06] MEDS: LISINOPRIL 20 MG TAB PO SCH ×2 (07:41→20:54)
[2016-12-06] MEDS: FOLIC ACID 1 MG TAB PO SCH (07:41)
[2016-12-06] MEDS: FAMOTIDINE 20 MG TAB PO SCH (07:41)
[2016-12-06 07:47] LABS: Glucose,Whole Blood 106 mg/dL (75-99)
[2016-12-06 07:52] LABS: Basophils % (A) 1 %; CH 31.8; CHCM 35.1; Eosinophils # (A) 0.2 k/uL (0-0.7); Eosinophils % (A) 3 %; HDW 3.13; HGB 12.9 gm/dL (13.0-17.5); Luc # (Auto) 0.08; Luc % (Auto) 1; Lymphocytes # (A) 1.3 k/uL (1.0-4.8); Lymphocytes % (A) 21 %; MCH 31.7 pg (25.0-35.0); MCHC 34.8 g/dL (31.0-37.0); MCV 91.1 fL (80.0-100.0); Mean Platelet Volume 7.6; Monocytes # (A) 0.3 k/uL (0-1.0); Monocytes % (A) 6 %; Neutrophils # (A) 4.3 k/uL (1.3-7.7); Neutrophils % (A) 69 %; RBC 4.06 m/uL (4.30-5.90); WBC 6.3 k/uL (3.8-10.6); WBC (Perox) 6.69
[2016-12-06 08:25] LABS: Anion Gap 9 mmol/L; Blood Urea Nitrogen 22 mg/dL (9-20); Calcium 8.7 mg/dL (8.4-10.2); Carbon Dioxide 20 mmol/L (22-30); Chloride 107 mmol/L (98-107); Glucose 95 mg/dL (74-99); Non-African American GFR(MDRD) >60 (>60 ml/min/1.73 sqM); Potassium 4.2 mmol/L (3.5-5.1); Sodium 136 mmol/L (137-145)
--- NOTE | 2016-12-06 09:42 | P.DS ---
Providers Date of admission: 11/30/16 00:59 Expected date of discharge: 12/06/16 Attending physician: Reginald Spann Consults: 11/30/16 00:59 Consult Physician Routine Consulting Provider: Edith Doe Consult Reason/Comments: arf Do you want consulting provider notified?: Yes 12/01/16 19:35 Consult Physician Routine Consulting Provider: Bee Boucher Consult Reason/Comments: Patient's refusing to eat or drink possibly depressed Do you want consulting provider notified?: Yes 12/03/16 12:41 Consult Physician Routine Consulting Provider: Ada Callahan Consult Reason/Comments: re consult psychiatry patient is awake alert and communicating now Do you want consulting provider notified?: Yes Primary care physician: Reginald Spann Hospital Course: he patient is a 75-year-old white male, well-known to me. He was discharged from a hospitalization for acute renal failure and UTI to [facility]. He was stable there. Apparently he became despondent and was not eating or drinking. He once again developed acute renal failure and was admitted here. He has some depression regarding his current issues. I'll just seen him and hydrated him. It started him on bicarbonate. Some of his medications that can worsen kidneys is discontinued. He slowly improved. Psychiatry did see him, but he was delirious that time recommendations were deferred. Much improved since then under Dr. Carpenter's care. [facility]. He remained stable over the last 24 hours and will be sent back to [facility]. I will reevaluate him there in the next 3 days. Issue of him needing a guardian, is still pending and will be resolved by social work for discharge. Final diagnosis 1 Acute renal failure secondary to dehydration 2 Episodic delirium/Dementiacannot be excluded is leading to some of these issues. Psych is recommended a guardian for him. 3 type II diabetes 4 hypertension 5 hyperLipidemia 6 coronary artery disease 7 BPH 8 Low back pain 9 debility after hospitalization Patient Condition at Discharge: Serious Plan - Discharge Summary New Discharge Prescriptions: Continue metFORMIN HCL 1,000 mg PO BID Tamsulosin HCl [Flomax] 0.4 mg PO HS Levothyroxine Sodium [Synthroid] 75 mcg PO DAILY Folic Acid 1 mg PO DAILY Clopidogrel [Plavix] 75 mg PO DAILY Atorvastatin [Lipitor] 40 mg PO HS Lisinopril 20 mg PO BID glipiZIDE XL [Glucotrol XL] 5 mg PO DAILY Potassium Chloride ER [K-Dur 10] 10 meq PO DAILY Metoprolol Succinate [Toprol XL] 25 mg PO DAILY Cyclobenzaprine [Flexeril] 10 mg PO TID PRN PRN Reason: Pain Famotidine [Pepcid] 20 mg PO DAILY tab Acetaminophen Tab [Tylenol] 650 mg PO Q6H PRN PRN Reason: Pain Discharge Medication List Atorvastatin [Lipitor] 40 mg PO HS 01/18/16 [History] Clopidogrel [Plavix] 75 mg PO DAILY 01/18/16 [History] Folic Acid 1 mg PO DAILY 01/18/16 [History] Levothyroxine Sodium [Synthroid] 75 mcg PO DAILY 01/18/16 [History] Tamsulosin HCl [Flomax] 0.4 mg PO HS 01/18/16 [History] metFORMIN HCL 1,000 mg PO BID 01/18/16 [History] Lisinopril 20 mg PO BID 05/25/16 [History] Cyclobenzaprine [Flexeril] 10 mg PO TID PRN 11/07/16 [History] Metoprolol Succinate [Toprol XL] 25 mg PO DAILY 11/07/16 [History] Potassium Chloride ER [K-Dur 10] 10 meq PO DAILY 11/07/16 [History] glipiZIDE XL [Glucotrol XL] 5 mg PO DAILY 11/07/16 [History] Famotidine [Pepcid] 20 mg PO DAILY tab 11/11/16 [Rx] Acetaminophen Tab [Tylenol] 650 mg PO Q6H PRN 11/29/16 [History] Follow up Appointment(s)/Referral(s): Reginald Spann MD [Primary Care Provider] - 1-2 days Bertha Weaver MD [STAFF PHYSICIAN] - 2 Weeks Discharge Disposition: TRANSFER TO SNF/ECF
[2016-12-06 10:00] LABS: Hemoglobin A1C 5.9 % (4.2-6.1)
--- NOTE | 2016-12-06 10:11 | PN ---
Patient is seen for follow up for acute kidney injury. His renal function has improved significantly with creatinine down to 0.95 from 1.7 mg/dl. The patient had not been eating or drinking much. He is currently maintained on ANASTASIIA inhibitors and IV fluids are still at 100 mL an hour. On examination, patient is comfortable; awake, alert, oriented x3. Not in any acute distress. Blood pressure is 93/56, heart rate 93 per minute, he is afebrile. HEART: S1/S2. LUNGS: Bilateral breath sounds are heard. ABDOMEN: Soft, nontender. LOWER EXTREMITIES: Show no evidence of edema. LABS: Sodium 136, potassium 4.2, BUN 22, serum creatinine 0.95. Hemoglobin 12.9 gm/dl. ASSESSMENT: 1. Acute kidney injury, prerenal, currently improved. 2. Intravascular volume depletion, currently resolved. 3. Metabolic acidosis, started on sodium bicarb which we can continue. PLAN: Patient is stable for discharge. Continue with sodium bicarb. Repeat labs as outpatient. Continue to encourage increased oral intake. MTDD
[2016-12-06 11:36] LABS: Glucose,Whole Blood 96 mg/dL (75-99)
[2016-12-06 17:45] LABS: Glucose,Whole Blood 85 mg/dL (75-99)
[2016-12-06 20:46] LABS: Glucose,Whole Blood 87 mg/dL (75-99)
[2016-12-06] MEDS: FLUoxetine HCL 10 MG CAP PO SCH (20:53)
[2016-12-06] MEDS: ATORVASTATIN 40 MG TAB PO SCH (20:53)
[2016-12-06] MEDS: TAMSULOSIN 0.4 MG CAP.ER.24H PO SCH (20:53)
[2016-12-07] MEDS: SODIUM CHLORIDE 0.45% 1,000 ML IV SCH ×2 (06:21→16:28)
[2016-12-07] MEDS: LEVOTHYROXINE 75 MCG TAB PO SCH (06:26)
[2016-12-07] MEDS: ENOXAPARIN 40 MG/0.4 ML SYRINGE SQ SCH (07:52)
[2016-12-07] MEDS: FLUoxetine HCL 10 MG CAP PO SCH (07:53)
[2016-12-07] MEDS: FAMOTIDINE 20 MG TAB PO SCH (07:53)
[2016-12-07] MEDS: metFORMIN 500 MG TAB PO SCH ×2 (07:53→17:18)
[2016-12-07] MEDS: CLOPIDOGREL 75 MG TAB PO SCH (07:53)
[2016-12-07] MEDS: METOPROLOL SUCCINATE (ER) 25 MG TAB.ER.24H PO SCH (07:54)
[2016-12-07] MEDS: LISINOPRIL 20 MG TAB PO SCH (07:54)
[2016-12-07] MEDS: SODIUM BICARBONATE TAB 650 MG TAB PO SCH ×2 (07:55→16:29)
[2016-12-07 07:58] LABS: Glucose,Whole Blood 103 mg/dL (75-99)
[2016-12-07 09:35] VITALS: PULSE 77; RESP 18
[2016-12-07 11:38] LABS: Glucose,Whole Blood 69 mg/dL (75-99)
[2016-12-07 12:08] LABS: Glucose,Whole Blood 95 mg/dL (75-99)
--- NOTE | 2016-12-07 13:12 | P.PN ---
Progress Note - Text The patient remained stable. Discharge is pending Medicaid application for him to go to [facility] at [facility].
[2016-12-07] MEDS: FOLIC ACID 1 MG TAB PO SCH (13:59)
[2016-12-07 16:01] VITALS: BP 103/63; TEMP 98
[2016-12-07 17:29] LABS: Glucose,Whole Blood 89 mg/dL (75-99)
--- NOTE | 2016-12-07 22:58 | PN ---
Patient is seen for followup for acute kidney injury. Renal function has improved. Patient is awaiting discharge. He will be going to [facility] at [facility], currently awaiting Medicaid application. On examination, blood pressure is 102/55, heart rate 77 per minute. Patient is afebrile. He is not communicating much. EXAMINATION OF THE HEART: S1, S2. EXAMINATION OF LUNGS: Bilateral breath sounds are heard. Abdomen is soft, non-tender. Examination of lower extremities shows no evidence of edema. Labs are not available from today. ASSESSMENT: 1. Acute kidney injury, prerenal, currently significantly improved. 2. Intravascular volume depletion, now resolved. 3. Metabolic acidosis, maintained on sodium bicarb, which we will continue. PLAN: Continue with sodium bicarb. Maintain adequate oral intake. Repeat labs as outpatient. MTDD
== END 2016-12-07 18:12 | DRG 683 ==
LOC: EC 21:29 → 6SEL 11-30 00:59 → 5ONC 12-05 11:52
PROVIDERS: ADMIT Family Medicine; ATTEND Family Medicine
DX: N17.9 Acute kidney failure, unspecified (principal); E44.1 Mild protein-calorie malnutrition; E87.2 Acidosis; E87.5 Hyperkalemia; F03.90 Unspecified dementia, unspecified severity, without behavioral disturbance, psychotic disturbance, mood disturbance, and anxiety; F05 Delirium due to known physiological condition; E11.9 Type 2 diabetes mellitus without complications; R62.7 Adult failure to thrive; E03.9 Hypothyroidism, unspecified; E78.5 Hyperlipidemia, unspecified; E86.0 Dehydration; E86.1 Hypovolemia; G89.29 Other chronic pain; H91.90 Unspecified hearing loss, unspecified ear; I10 Essential (primary) hypertension; I25.10 Atherosclerotic heart disease of native coronary artery without angina pectoris; N40.0 Benign prostatic hyperplasia without lower urinary tract symptoms; Z74.01 Bed confinement status; Z79.02 Long term (current) use of antithrombotics/antiplatelets; Z79.899 Other long term (current) drug therapy; Z95.1 Presence of aortocoronary bypass graft; M54.5 Low back pain
CPT/HCPCS: 36415; 71020; 80048; 80053; 82533; 82550; 82553; 83036; 83605; 83690; 83735; 84484; 85025; 85027; 85379; 85610; 85730; 87040; 93005; 96360; 99285

== ENCOUNTER 2016-12-16 05:21 | Inpatient (IN) | payer MEDICARE ==
[2016-12-16 05:32] LABS: Glucose,Whole Blood 105 mg/dL (75-99)
--- NOTE | 2016-12-16 05:43 | ED ---
Recheck HPI - General Chief Complaint: Recheck/Abnormal Lab/Rx Stated Complaint: Hypotension Time Seen by Provider: 12/16/16 05:33 Source: EMS Mode of arrival: EMS Limitations: no limitations, altered mental status - History of Present Illness Initial Comments: Patient is 76-year-old man poorly has some underlying dementia, and is transferred in from shelter. It is reported that in the shelter's blood pressure was in the 70s over 50s. The patient is denying complaints. No other history is available. MD Complaint: other (Hypotension) -: unknown Associated Symptoms: none - Related Data Home Medications Medication Instructions Recorded Confirmed Atorvastatin [Lipitor] 40 mg PO HS 01/18/16 11/29/16 Clopidogrel [Plavix] 75 mg PO DAILY 01/18/16 11/29/16 Folic Acid 1 mg PO DAILY 01/18/16 11/29/16 Levothyroxine Sodium [Synthroid] 75 mcg PO DAILY 01/18/16 11/29/16 Tamsulosin HCl [Flomax] 0.4 mg PO HS 01/18/16 11/29/16 metFORMIN HCL 1,000 mg PO BID 01/18/16 11/29/16 Lisinopril 20 mg PO BID 05/25/16 11/29/16 Cyclobenzaprine [Flexeril] 10 mg PO TID PRN 11/07/16 11/29/16 Metoprolol Succinate [Toprol XL] 25 mg PO DAILY 11/07/16 11/29/16 Potassium Chloride ER [K-Dur 10] 10 meq PO DAILY 11/07/16 11/29/16 glipiZIDE XL [Glucotrol XL] 5 mg PO DAILY 11/07/16 11/29/16 Acetaminophen Tab [Tylenol] 650 mg PO Q6H PRN 11/29/16 11/29/16 Previous Rx's Medication Instructions Recorded Famotidine [Pepcid] 20 mg PO DAILY tab 11/11/16 Allergies Allergy/AdvReac Type Severity Reaction Status Date / Time No Known Allergies Allergy Verified 12/16/16 05:22 Review of Systems ROS Statement: Those systems with pertinent positive or pertinent negative responses have been documented in the HPI. ROS Other: All systems not noted in ROS Statement are negative. Limitations: ROS unobtainable due to patients medical condition (Underlying dementia) Past Medical History Past Medical History: Diabetes Mellitus, Hypertension Additional Past Medical History / Comment(s): BPH History of Any Multi-Drug Resistant Organisms: None Reported Past Surgical History: Coronary Bypass/CABG Additional Past Surgical History / Comment(s): brain aneursym repair Past Anesthesia/Blood Transfusion Reactions: No Reported Reaction Past Psychological History: No Psychological Hx Reported Smoking Status: Never smoker Past Alcohol Use History: None Reported Past Drug Use History: None Reported General Exam Limitations: no limitations General appearance: alert, in no apparent distress Head exam: Present: atraumatic, normocephalic Eye exam: Present: normal appearance, PERRL, EOMI. Absent: scleral icterus, conjunctival injection ENT exam: Present: mucous membranes dry Neck exam: Present: full ROM. Absent: tenderness, meningismus Respiratory exam: Present: normal lung sounds bilaterally, wheezes (Bilateral bases). Absent: respiratory distress, rales, rhonchi, stridor Cardiovascular Exam: Present: regular rate, normal rhythm, normal heart sounds. Absent: systolic murmur, diastolic murmur, rubs, gallop GI/Abdominal exam: Present: soft. Absent: distended, tenderness, guarding, rebound Extremities exam: Present: normal inspection, normal capillary refill. Absent: pedal edema, calf tenderness Neurological exam: Present: alert, other (Patient is alert, oriented 2, moves 4 extremities to command without evident focal weakness. Light touch intact to all 4 extremities.). Absent: oriented X3 (Patient is oriented to person), motor sensory deficit Skin exam: Present: warm, dry, intact, normal color. Absent: rash Course Vital Signs 12/16/16 12/16/16 12/16/16 05:22 05:37 05:44 Temperature 95.8 F L Pulse Rate 80 90 91 Respiratory 24 20 22 Rate Blood Pressure 85/48 84/46 80/50 O2 Sat by Pulse 97 97 100 Oximetry 12/16/16 12/16/16 12/16/16 05:54 06:00 06:21 Temperature Pulse Rate 88 90 90 Respiratory 22 20 24 Rate Blood Pressure 67/45 85/51 80/52 O2 Sat by Pulse 99 99 98 Oximetry 12/16/16 12/16/16 12/16/16 06:51 07:01 07:23 Temperature Pulse Rate 121 H 87 94 Respiratory 18 20 18 Rate Blood Pressure 95/72 92/55 108/62 O2 Sat by Pulse 100 99 100 Oximetry - Reevaluation(s) Reevaluation #1: 12/16/16 06:36 I have reviewed the chest x-ray following the line placement. Based on the x- ray I question whether the central line is placed into the artery, however the blood return was nonpulsatile. Will give the fluid bolus to support blood pressure. Reevaluation #2: 12/16/16 06:[address] Spann regarding admission and also discussed with from vascular surgery regarding possibility of arterial central line placement. Reevaluation #3: 12/16/16 08:24 Dr. Harrison has arrived and has seen the patient. We had a discussion with the patient's regarding possibility of intrathoracic bleeding when the right subclavian line is pulled, and she states that she does not believe he would survive any sort of intrathoracic procedure and declines having a cardiothoracic surgeon open the patient's chest should there be any competition line removal. She states that her main wishes at this point are that the patient be kept comfortable. In light of this patient made no code with full medical care. Dr. Harrison is placing a right femoral central line for further fluid resuscitation and will discontinue the right subclavian central line. Procedures - Central Line Placement Right SC Consent Obtained: emergent situation Time Out Performed: Yes Patient Placed on Monitor/Pulse Ox: Yes Prep: mask, gown, gloves Central Line Prep: Chlorhexidine scrub Local Anesthesia Used: Lidocaine 1% Central Line Lumen Inserted: triple Central Line Position: good blood return, all ports aspirated, flushed, capped, sutured in place with 2-0 silk Dressing Applied: Tegaderm Patient Tolerated Procedure: well Medical Decision Making - Medical Decision Making This patient is 76-year-old man with severe underlying dementia, and from the shelter. He has severe dehydration, acute renal failure, and he has a minimally elevated troponin related to this. - Lab Data Result diagrams: 12/16/16 06:25 12/16/16 06:25 Lab Results 12/16/16 12/16/16 12/16/16 Range/Units 05:30 06:25 06:25 WBC 9.6 (3.8-10.6) k/uL RBC 4.48 (4.30-5.90) m/uL Hgb 14.0 (13.0-17.5) gm/dL Hct 42.2 (39.0-53.0) % MCV 94.2 (80.0-100.0) fL MCH 31.2 (25.0-35.0) pg MCHC 33.1 (31.0-37.0) g/dL RDW 15.6 H (11.5-15.5) % Plt Count 334 (150-450) k/uL Neutrophils % 77 % Lymphocytes % 15 % Monocytes % 6 % Eosinophils % 0 % Basophils % 0 % Neutrophils # 7.4 (1.3-7.7) k/uL Lymphocytes # 1.5 (1.0-4.8) k/uL Monocytes # 0.5 (0-1.0) k/uL Eosinophils # 0.0 (0-0.7) k/uL Basophils # 0.0 (0-0.2) k/uL PT (9.0-12.0) sec INR (<1.2) APTT (22.0-30.0) sec Sodium 144 (137-145) mmol/L Potassium 5.8 H (3.5-5.1) mmol/L Chloride 114 H (98-107) mmol/L Carbon Dioxide 12 L (22-30) mmol/L Anion Gap 18 mmol/L BUN 113 H* (9-20) mg/dL Creatinine 6.04 H* (0.66-1.25) mg/dL Est GFR (MDRD) Af Amer 11 (>60 ml/min/1.73 sqM) Est GFR (MDRD) Non-Af 9 (>60 ml/min/1.73 sqM) Glucose 118 H (74-99) mg/dL POC Glucose (mg/dL) 105 H (75-99) mg/dL POC Glu [employer] Mach[employer]rentice ID Eva Robin Plasma Lactic Acid Percy (0.7-2.0) mmol/L Calcium 9.5 (8.4-10.2) mg/dL Total Bilirubin 0.8 (0.2-1.3) mg/dL AST 22 (17-59) U/L ALT 40 (21-72) U/L Alkaline Phosphatase 142 H (38-126) U/L Troponin I (0.000-0.034) ng/mL Total Protein 6.8 (6.3-8.2) g/dL Albumin 3.6 (3.5-5.0) g/dL Urine Color Urine Appearance (Clear) Urine pH (5.0-8.0) Ur Specific [place] (1.001-1.035) Urine Protein (Negative) Urine Glucose (UA) (Negative) Urine Ketones (Negative) Urine Blood (Negative) Urine Nitrite (Negative) Urine Bilirubin (Negative) Urine Urobilinogen (<2.0) mg/dL Ur Leukocyte Esterase (Negative) Urine WBC (0-5) /hpf Ur Squamous Epith Cells (0-4) /hpf Urine Bacteria (None) /hpf Hyaline Casts (0-2) /lpf Urine Mucus (None) /hpf Ur Yeast w Hyphae (None) /hpf 12/16/16 12/16/16 12/16/16 Range/Units 06:25 06:25 06:30 WBC (3.8-10.6) k/uL RBC (4.30-5.90) m/uL Hgb (13.0-17.5) gm/dL Hct (39.0-53.0) % MCV (80.0-100.0) fL MCH (25.0-35.0) pg MCHC (31.0-37.0) g/dL RDW (11.5-15.5) % Plt Count (150-450) k/uL Neutrophils % % Lymphocytes % % Monocytes % % Eosinophils % % Basophils % % Neutrophils # (1.3-7.7) k/uL Lymphocytes # (1.0-4.8) k/uL Monocytes # (0-1.0) k/uL Eosinophils # (0-0.7) k/uL Basophils # (0-0.2) k/uL PT 12.8 H (9.0-12.0) sec INR 1.3 H (<1.2) APTT 21.8 L (22.0-30.0) sec Sodium (137-145) mmol/L Potassium (3.5-5.1) mmol/L Chloride (98-107) mmol/L Carbon Dioxide (22-30) mmol/L Anion Gap mmol/L BUN (9-20) mg/dL Creatinine (0.66-1.25) mg/dL Est GFR (MDRD) Af Amer (>60 ml/min/1.73 sqM) Est GFR (MDRD) Non-Af (>60 ml/min/1.73 sqM) Glucose (74-99) mg/dL POC Glucose (mg/dL) (75-99) mg/dL POC Glu Wood Machinist Apprentice ID Plasma Lactic Acid Percy 2.0 (0.7-2.0) mmol/L Calcium (8.4-10.2) mg/dL Total Bilirubin (0.2-1.3) mg/dL AST (17-59) U/L ALT (21-72) U/L Alkaline Phosphatase (38-126) U/L Troponin I 0.037 H* (0.000-0.034) ng/mL Total Protein (6.3-8.2) g/dL Albumin (3.5-5.0) g/dL Urine Color Urine Appearance (Clear) Urine pH (5.0-8.0) Ur Specific [place] (1.001-1.035) Urine Protein (Negative) Urine Glucose (UA) (Negative) Urine Ketones (Negative) Urine Blood (Negative) Urine Nitrite (Negative) Urine Bilirubin (Negative) Urine Urobilinogen (<2.0) mg/dL Ur Leukocyte Esterase (Negative) Urine WBC (0-5) /hpf Ur Squamous Epith Cells (0-4) /hpf Urine Bacteria (None) /hpf Hyaline Casts (0-2) /lpf Urine Mucus (None) /hpf Ur Yeast w Hyphae (None) /hpf 12/16/16 Range/Units 07:20 WBC (3.8-10.6) k/uL RBC (4.30-5.90) m/uL Hgb (13.0-17.5) gm/dL Hct (39.0-53.0) % MCV (80.0-100.0) fL MCH (25.0-35.0) pg MCHC (31.0-37.0) g/dL RDW (11.5-15.5) % Plt Count (150-450) k/uL Neutrophils % % Lymphocytes % % Monocytes % % Eosinophils % % Basophils % % Neutrophils # (1.3-7.7) k/uL Lymphocytes # (1.0-4.8) k/uL Monocytes # (0-1.0) k/uL Eosinophils # (0-0.7) k/uL Basophils # (0-0.2) k/uL PT (9.0-12.0) sec INR (<1.2) APTT (22.0-30.0) sec Sodium (137-145) mmol/L Potassium (3.5-5.1) mmol/L Chloride (98-107) mmol/L Carbon Dioxide (22-30) mmol/L Anion Gap mmol/L BUN (9-20) mg/dL Creatinine (0.66-1.25) mg/dL Est GFR (MDRD) Af Amer (>60 ml/min/1.73 sqM) Est GFR (MDRD) Non-Af (>60 ml/min/1.73 sqM) Glucose (74-99) mg/dL POC Glucose (mg/dL) (75-99) mg/dL POC Glu Wood Machinist Apprentice ID Plasma Lactic Acid Percy (0.7-2.0) mmol/L Calcium (8.4-10.2) mg/dL Total Bilirubin (0.2-1.3) mg/dL AST (17-59) U/L ALT (21-72) U/L Alkaline Phosphatase (38-126) U/L Troponin I (0.000-0.034) ng/mL Total Protein (6.3-8.2) g/dL Albumin (3.5-5.0) g/dL Urine Color Yellow Urine Appearance Cloudy (Clear) Urine pH 5.0 (5.0-8.0) Ur Specific [place] 1.014 (1.001-1.035) Urine Protein Trace H (Negative) Urine Glucose (UA) Negative (Negative) Urine Ketones Negative (Negative) Urine Blood Negative (Negative) Urine Nitrite Negative (Negative) Urine Bilirubin Negative (Negative) Urine Urobilinogen <2.0 (<2.0) mg/dL Ur Leukocyte Esterase Trace H (Negative) Urine WBC 4 (0-5) /hpf Ur Squamous Epith Cells 1 (0-4) /hpf Urine Bacteria Rare H (None) /hpf Hyaline Casts 118 H (0-2) /lpf Urine Mucus Few H (None) /hpf Ur Yeast w Hyphae Rare (None) /hpf - EKG Data -: EKG Interpreted by Il EKG shows normal: sinus rhythm, QRS complexes (Right bundle-branch block. Left anterior fascicular block.) Rate: tachycardia (Rate 117 bpm) Disposition Clinical Impression: Hypotension, Dehydration, Acute kidney injury, Elevated troponin I level Disposition: ADMITTED IP TO THIS HOSP Condition: Poor Referrals: Reginald Spann MD [Primary Care Provider] - 1-2 days
[2016-12-16] MEDS: SODIUM CHLORIDE 0.9% 500 ML IV SCH ×3 (06:36→08:30)
[2016-12-16 06:41] LABS: Basophils % (A) 0 %; CH 32.6; CHCM 34.9; Eosinophils % (A) 0 %; HCT 42.2 % (39.0-53.0); HDW 3.03; Luc # (Auto) 0.13; Luc % (Auto) 1; Lymphocytes # (A) 1.5 k/uL (1.0-4.8); Lymphocytes % (A) 15 %; MCH 31.2 pg (25.0-35.0); MCHC 33.1 g/dL (31.0-37.0); MCV 94.2 fL (80.0-100.0); Mean Platelet Volume 8.6; Monocytes # (A) 0.5 k/uL (0-1.0); Monocytes % (A) 6 %; Neutrophils # (A) 7.4 k/uL (1.3-7.7); Neutrophils % (A) 77 %; RBC 4.48 m/uL (4.30-5.90); RDW 15.6 % (11.5-15.5); WBC 9.6 k/uL (3.8-10.6); WBC (Perox) 9.34
[2016-12-16] MEDS ORDERED: MORPHINE SULFATE 4 MG/ML SYRINGE IVP STA (06:46)
--- NOTE | 2016-12-16 06:49 | XR ---
EXAM: XR Chest, 1 View CLINICAL HISTORY: Reason: Pain TECHNIQUE: Frontal view of the chest. COMPARISON: 11/29/16. FINDINGS: Lungs: Low lung volumes with patchy linear opacities, likely atelectasis. Pleural space: Unremarkable. Heart: Stable cardiomediastinal silhouette. Mediastinum: See above. Bones/joints: Unremarkable. Tubes, lines and devices: Interval placement of right-sided central venous catheter with obliquely oriented distal portion, the tip to the left of midline. Other: Postsurgical changes in the chest and right upper quadrant. IMPRESSION: Right-sided central venous catheter with obliquely oriented distal portion, the tip to the left of midline. Overall appearance is suspicious for arterial placement. Correlate clinically. [employer] 12/16/16 07:00 Verify Receipt Verified receipt with LAUREL Shepherd, report given to Dr. Gusman on 12/16 06:59 (-04:00)
[2016-12-16 06:50] LABS: INR 1.3 (<1.2); Prothrombin Time 12.8 sec (9.0-12.0)
[2016-12-16 06:55] LABS: Calcium 9.5 mg/dL (8.4-10.2); Potassium 5.8 mmol/L (3.5-5.1); Total Bilirubin 0.8 mg/dL (0.2-1.3); Total Protein 6.8 g/dL (6.3-8.2)
[2016-12-16 06:57] LABS: Partial Thromboplastin Time 21.8 sec (22.0-30.0)
[2016-12-16] MEDS ORDERED: ONDANSETRON 4 MG/2 ML VIAL IVP STA (07:19)
[2016-12-16 07:49] LABS: Appearance,Urine Cloudy (Clear); Bacteria,Urine Rare /hpf; Bilirubin,Urine Negative (Negative); Glucose,Urine (UA) Negative (Negative); Hyphae Yeast, Urine Rare /hpf; Ketones,Urine Negative (Negative); Leukocyte Esterase,Urine Trace (Negative); Mucus,Urine Few /hpf; Nitrite,Urine Negative (Negative); Particle Count 12824; Protein,Urine Trace (Negative); Specific Gravity,Urine 1.014 (1.001-1.035); Squamous Epithelial Cell,Urine 1 /hpf (0-4); UA Billing (MACRO vs. MICRO) MICRO; Urobilinogen,Urine <2.0 mg/dL (<2.0); WBC,Urine 4 /hpf (0-5)
[2016-12-16] MEDS ORDERED: ONDANSETRON 4 MG/2 ML VIAL IVP PRN (08:40)
[2016-12-16] MEDS ORDERED: NALOXONE 0.4 MG/ML 1 ML VIAL IV PRN (08:40)
[2016-12-16] MEDS ORDERED: ACETAMINOPHEN TAB 325 MG TAB PO PRN ×2 (08:40→12:53)
[2016-12-16] MEDS: SODIUM CHLORIDE 0.9% 1,000 ML IV SCH ×3 (09:34→21:18)
--- NOTE | 2016-12-16 09:43 | XR ---
EXAMINATION TYPE: XR chest 1V portable DATE OF EXAM: 12/16/2016 COMPARISON: 12/16/2016 at 6:29 AM HISTORY: New line placement. TECHNIQUE: Single frontal view of the chest is obtained. FINDINGS: The previously seen right subclavian central venous catheter has been removed with interva l placement of a right internal jugular central venous catheter with its distal tip in the low right atrium. Retraction of approximately 6-8 cm could be performed for optimal placement. Intact midline sternotomy wires are seen, cardiac silhouette is within normal limits. No focal consol idation or pneumothorax. Left costophrenic angle is blunted and may relate to trace pleural effusion. No evidence of pulmonary vascular congestion or pneumothorax. Degenerative changes are seen of the g lenohumeral joint and thoracic spine. Surgical benji are noted within the right upper quadrant. IMPRESSION: 1. Removal of the previously seen right subclavian central venous catheter with placement of a right internal jugular central venous catheter. This terminates in the low right atrium and could be retrac gabriella approximately 6 to 8 cm for optimal placement. 2. New probable trace left pleural effusion.
[2016-12-16] MEDS ORDERED: DEXTROSE 50%-WATER 50 ML SYRINGE IVP STA (11:40)
[2016-12-16] MEDS ORDERED: INSULIN REGULAR 100 UNIT/ML VIAL IV ONE (11:40)
--- NOTE | 2016-12-16 11:41 | P.NPCON ---
History of Present Illness - Reason for Consult acute renal failure - History of Present Illness Reason for consultation: Acute kidney injury History of present illness: Patient is a 76-year-old male seen in renal consultation for acute kidney injury. His baseline creatinine is 1 and was elevated at 6.04 on admission. Patient was sent from a skilled nursing due to hypotension. His systolic blood pressure on admission was in the 60s to 80s range. He did receive 1 L IV fluid bolus and is currently maintained on normal saline at 1 25 mL an hour. Blood pressures are improved. It is all medications is noted that he was taking potassium supplementation along with an ANASTASIIA inhibitor as well as metformin which are all held at this time. He's noted to be extremely acidotic with bicarb level of 12. He is also hyperkalemic with a potassium level of 5.8. Patient is awake but is not a very reliable historian. I don't see any NSAIDs and his home medications. A Peres catheter was placed for accurate I's and O's. Vital signs are stable. General: The patient appeared well nourished and normally developed. HEENT: Head exam is unremarkable. Neck is without jugular venous distension. LUNGS: Lungs are clear to auscultation and percussion. Breath sounds decreased. HEART: Rate and Rhythm are regular. First and second heart sounds normal. No murmurs, rubs or gallops. ABDOMEN: Abdominal exam reveals normal bowel sounds. Non-tender and non- distended. No evidence of peritonitis. EXTREMITITES: No clubbing, cyanosis, or edema. Past Medical History Past Medical History: Diabetes Mellitus, Hypertension Additional Past Medical History / Comment(s): BPH History of Any Multi-Drug Resistant Organisms: None Reported Past Surgical History: Coronary Bypass/CABG Additional Past Surgical History / Comment(s): brain aneursym repair Past Anesthesia/Blood Transfusion Reactions: No Reported Reaction Past Psychological History: No Psychological Hx Reported Smoking Status: Never smoker Past Alcohol Use History: None Reported Past Drug Use History: None Reported Medications and Allergies Home Medications Medication Instructions Recorded Confirmed Type Atorvastatin [Lipitor] 40 mg PO HS 01/18/16 12/16/16 History Clopidogrel [Plavix] 75 mg PO DAILY 01/18/16 12/16/16 History Folic Acid 1 mg PO DAILY 01/18/16 12/16/16 History Levothyroxine Sodium [Synthroid] 75 mcg PO DAILY 01/18/16 12/16/16 History Tamsulosin HCl [Flomax] 0.4 mg PO HS 01/18/16 12/16/16 History metFORMIN HCL 1,000 mg PO BID 01/18/16 12/16/16 History Lisinopril 20 mg PO BID 05/25/16 12/16/16 History Cyclobenzaprine [Flexeril] 10 mg PO TID PRN 11/07/16 12/16/16 History Metoprolol Succinate [Toprol XL] 25 mg PO DAILY 11/07/16 12/16/16 History Potassium Chloride ER [K-Dur 10] 10 meq PO DAILY 11/07/16 12/16/16 History glipiZIDE XL [Glucotrol XL] 5 mg PO DAILY 11/07/16 12/16/16 History Acetaminophen Tab [Tylenol] 650 mg PO Q6H PRN 11/29/16 12/16/16 History predniSONE 10 mg PO DAILY 12/16/16 12/16/16 History Allergies Allergy/AdvReac Type Severity Reaction Status Date / Time No Known Allergies Allergy Verified 12/16/16 09:53 Physical Exam Vitals: Vital Signs Temp Pulse Pulse Resp BP BP Pulse Ox 12/16/16 10:59 98.1 F 84 20 98/55 95 12/16/16 10:52 21 12/16/16 09:35 96.6 F L 82 16 106/56 100 12/16/16 09:00 84 16 91/54 98 12/16/16 07:23 94 18 108/62 100 12/16/16 07:01 87 20 92/55 99 12/16/16 06:51 121 H 18 95/72 100 12/16/16 06:21 90 24 80/52 98 12/16/16 06:00 90 20 85/51 99 12/16/16 05:54 88 22 67/45 99 12/16/16 05:44 91 22 80/50 100 12/16/16 05:37 90 20 84/46 97 12/16/16 05:22 95.8 F L 80 24 85/48 97 Intake and Output 12/15/16 12/16/16 12/16/16 22:59 06:59 14:59 Other: Voiding Method Indwelling Catheter Weight 75.3 kg 75.3 kg Patient Weight 12/17/16 06:59 Weight 75.3 kg Results - Lab Results Most recent lab results Calcium 9.5 mg/dL (8.4-10.2) 12/16/16 06:25 12/16/16 06:25 12/16/16 06:25 Assessment and Plan Plan: Assessment: #1. Nonoliguric acute kidney injury secondary to ischemic ATN secondary to hypotension and further worsened with the use of ANASTASIIA inhibitor. Patient was also on metformin 1 g twice a day which is now held. Urinalysis is quite benign. #2. Hyperkalemia secondary to acute kidney injury and metabolic acidosis. Further worsened from the use of potassium supplementation as well as use of ANASTASIIA inhibitor at home. #3. Anion gap metabolic acidosis secondary to acute kidney injury. #4. Hypotension. Check cortisol level. Patient is afebrile with white count of 9.6. No significant signs of UTI on UA. Plan: Continue normal saline to be run at 125 mL an hour. Maintain Peres catheter for strict is and os. Add oral sodium bicarbonate 1300 mg 3 times daily. Avoid nephrotoxic agents and hypotensive episodes. Metformin, ANASTASIIA inhibitor as well as potassium supplementation held for now. I will give him 10 units of IV regular insulin with amp of D50. Repeat potassium level at 4 PM today. Repeat electrolytes in the morning. Thank you for the consultation. I will continue to follow the patient with you during his hospital stay.
[2016-12-16] MEDS: SODIUM BICARBONATE TAB 650 MG TAB PO SCH ×2 (12:44→21:17)
[2016-12-16] MEDS ORDERED: CYCLOBENZAPRINE 10 MG TAB PO PRN (12:53)
--- NOTE | 2016-12-16 15:27 | CONS ---
DATE OF CONSULTATION: 12/16/2016 This is a 76-year-old gentleman who came to the emergency room with history of dehydration, high BUN and creatinine. Patient had a procedure done for IV access. Triple-lumen catheter was placed in the right subclavian artery. I was called in for a consult. On examination, patient was seen in his room. His blood pressure was in the 90s. His creatinine is 6. His chest is clear on auscultation, abdomen soft. Both femoral pulses are palpable. Patient's hemoglobin was stable. We discussed with the family that the patient needs his catheter to be removed, and we will get another IV access to the right internal jugular vein. They agreed. We will proceed. ALEX
--- NOTE | 2016-12-16 17:06 | PCN ---
PROCEDURE: Placement of the triple lumen catheter right internal jugular approach. This patient was seen and right groin was prepped and draped in sterile manner. Micropuncture introduced into right femoral vein. Micropuncture guidewire was passed. We could not pass a regular guidewire. 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 We decided to go to the right of the neck. The right side of the neck was prepped and draped in usual sterile manner. 1% Lidocaine was infiltrated. Ultrasound guided micropuncture introduced into right internal jugular vein. Micropuncture guide was passed 4 [place] dilator, then regular guide was passed. Then we placed a triple lumen catheter on top of the guidewire. Guidewire was removed, flushed with heparin and saline and hep- locked. Secured with 3-0 Nylon. Dressing applied. Then attention was paid, this patient had triple lumen to right subclavian artery. Blood pressure was in 90s. hemoglobin 14. We removed the triple lumen catheter. Pressure was held for 10 minutes. The patients blood pressure was stable. No hematoma. No bleeding was noted. Pressure dressing was applied. Patient tolerated the procedure well. ALEX
--- NOTE | 2016-12-16 17:50 | P.HPIM ---
History of Present Illness H&P Date: 12/16/16 Chief Complaint: Hypotension This 76-year-old patient with some underlying dementia who is a poor historian was recently discharged from the hospital and transferred to the nursing is reporting that in the prison patient's blood pressure in the 70s over 50s patient was otherwise denying complaints no other history is available. When patient was discharge last time the 80s and metformin were stopped in order to let patient's renal functions completely recover. Patient had at that time and somewhat unresponsive and stopped eating and drinking and taking all meds, which is not the issue today apparently the metformin and Drake were re- initiated by prison physician. The patient did not obviously tolerate this, the patient became extremely acidotic with a bicarb level of 12 and hyperkalemic with a potassium 5.8 and the acute kidney injury has been noted. We will not be reinitiating any nephrotoxic drugs at this time. Plasma lactic acid is been noted to be 2.0 at this time. Review of Systems Constitutional: Reports malaise Ears, nose, mouth and throat: Reports as per HPI Cardiovascular: Reports as per HPI Respiratory: Reports as per HPI Gastrointestinal: Reports as per HPI Genitourinary: Reports as per HPI Musculoskeletal: Reports as per HPI Integumentary: Reports as per HPI Neurological: Reports as per HPI, Reports confusion (Patient is confused most of the time) Past Medical History Past Medical History: Diabetes Mellitus, Hypertension Additional Past Medical History / Comment(s): BPH History of Any Multi-Drug Resistant Organisms: None Reported Past Surgical History: Coronary Bypass/CABG Additional Past Surgical History / Comment(s): brain aneursym repair Past Anesthesia/Blood Transfusion Reactions: No Reported Reaction Past Psychological History: No Psychological Hx Reported Smoking Status: Never smoker Past Alcohol Use History: None Reported Past Drug Use History: None Reported Medications and Allergies Home Medications Medication Instructions Recorded Confirmed Type Atorvastatin [Lipitor] 40 mg PO HS 01/18/16 12/16/16 History Clopidogrel [Plavix] 75 mg PO DAILY 01/18/16 12/16/16 History Folic Acid 1 mg PO DAILY 01/18/16 12/16/16 History Levothyroxine Sodium [Synthroid] 75 mcg PO DAILY 01/18/16 12/16/16 History Tamsulosin HCl [Flomax] 0.4 mg PO HS 01/18/16 12/16/16 History metFORMIN HCL 1,000 mg PO BID 01/18/16 12/16/16 History Lisinopril 20 mg PO BID 05/25/16 12/16/16 History Cyclobenzaprine [Flexeril] 10 mg PO TID PRN 11/07/16 12/16/16 History Metoprolol Succinate [Toprol XL] 25 mg PO DAILY 11/07/16 12/16/16 History Potassium Chloride ER [K-Dur 10] 10 meq PO DAILY 11/07/16 12/16/16 History glipiZIDE XL [Glucotrol XL] 5 mg PO DAILY 11/07/16 12/16/16 History Acetaminophen Tab [Tylenol] 650 mg PO Q6H PRN 11/29/16 12/16/16 History predniSONE 10 mg PO DAILY 12/16/16 12/16/16 History Allergies Allergy/AdvReac Type Severity Reaction Status Date / Time No Known Allergies Allergy Verified 12/16/16 09:53 Physical Exam Osteopathic Statement: *. No significant issues noted on an osteopathic structural exam other than those noted in the History and Physical/Consult. Vitals: Vital Signs Temp Pulse Pulse Resp BP BP Pulse Ox 12/16/16 14:36 84 20 12/16/16 10:59 98.1 F 84 20 98/55 95 12/16/16 10:52 21 12/16/16 09:35 96.6 F L 82 16 106/56 100 12/16/16 09:00 84 16 91/54 98 12/16/16 07:23 94 18 108/62 100 12/16/16 07:01 87 20 92/55 99 12/16/16 06:51 121 H 18 95/72 100 12/16/16 06:21 90 24 80/52 98 12/16/16 06:00 90 20 85/51 99 12/16/16 05:54 88 22 67/45 99 12/16/16 05:44 91 22 80/50 100 12/16/16 05:37 90 20 84/46 97 12/16/16 05:22 95.8 F L 80 24 85/48 97 Intake and Output 12/16/16 12/16/16 12/16/16 06:59 14:59 22:59 Other: Voiding Method Indwelling Catheter # Bowel Movements 0 Weight 75.3 kg 75.3 kg Patient Weight 12/17/16 06:59 Weight 75.3 kg General: [Patient awake, alert and oriented times 3. Patient in no acute distress.] HEENT: [PERRL. crusting greenish drainage from bilateral lacrimal ducts EOMI. No pharyngeal erythema or exudate.] Neck: [No adenopathy.] Cardiac: [Heart regular in rate and rhythm. No S3. No S4. No clicks, rubs. No murmur.] Lungs: [Clear to auscultation bilaterally.] Abdomen: [No mass. No organomegaly. Bowel sounds presnt and normoactive in all 4 quadrants.] Extremes: [No edema no cyanosis no claudication normal pulses] : [] Musculoskeletal: [No joint erythema, edema or tenderness.] Skin: [No rash.] Neurologic: [No lateralizing deficits. CN II - XII grossly intact.] Lymphatic: [No adenopathy.] Results CBC & Chem 7: 12/16/16 06:25 12/16/16 16:22 Labs: Abnormal Lab Results - Last 24 Hours (Table) 12/16/16 12/16/16 12/16/16 Range/Units 05:30 06:25 06:25 RDW 15.6 H (11.5-15.5) % PT (9.0-12.0) sec INR (<1.2) APTT (22.0-30.0) sec Potassium 5.8 H (3.5-5.1) mmol/L Chloride 114 H (98-107) mmol/L Carbon Dioxide 12 L (22-30) mmol/L BUN 113 H* (9-20) mg/dL Creatinine 6.04 H* (0.66-1.25) mg/dL Glucose 118 H (74-99) mg/dL POC Glucose (mg/dL) 105 H (75-99) mg/dL Alkaline Phosphatase 142 H (38-126) U/L Troponin I (0.000-0.034) ng/mL Urine Protein (Negative) Ur Leukocyte Esterase (Negative) Urine Bacteria (None) /hpf Hyaline Casts (0-2) /lpf Urine Mucus (None) /hpf 12/16/16 12/16/16 12/16/16 Range/Units 06:25 06:25 07:20 RDW (11.5-15.5) % PT 12.8 H (9.0-12.0) sec INR 1.3 H (<1.2) APTT 21.8 L (22.0-30.0) sec Potassium (3.5-5.1) mmol/L Chloride (98-107) mmol/L Carbon Dioxide (22-30) mmol/L BUN (9-20) mg/dL Creatinine (0.66-1.25) mg/dL Glucose (74-99) mg/dL POC Glucose (mg/dL) (75-99) mg/dL Alkaline Phosphatase (38-126) U/L Troponin I 0.037 H* (0.000-0.034) ng/mL Urine Protein Trace H (Negative) Ur Leukocyte Esterase Trace H (Negative) Urine Bacteria Rare H (None) /hpf Hyaline Casts 118 H (0-2) /lpf Urine Mucus Few H (None) /hpf Microbiology - Last 24 Hours (Table) 12/16/16 07:20 Urine Culture - Preliminary Urine,Catheterized Thrombosis Risk Factor Assmnt - Choose All That Apply Each Factor Represents 1 point: Medical pt on bed rest Each Risk Factor Represents 2 Points: Patient confined to bed Each Risk Factor Represents 3 Points: Age 75 years or older Other congenital or acquired thrombophilia - If yes, enter type in comment: No Thrombosis Risk Factor Assessment Total Risk Factor Score: 6 Thrombosis Risk Factor Assessment Level: High Risk Assessment and Plan (1) Conjunctivitis Narrative/Plan: Acute Status: Acute (2) Acute kidney injury Narrative/Plan: Acute Status: Acute (3) Dehydration Narrative/Plan: Resolving Status: Acute (4) Acute renal insufficiency Narrative/Plan: Acute consulting nephrology Status: Acute (5) Failure to thrive in adult Narrative/Plan: Wound will consult and dietary and add nutritional supplementation Status: Acute Plan: Stop DRAKE inhibitor as well as metformin Hyperkalemia secondary to acute kidney injury, potassium supplementation was also resumed in the prison along with drake we'll recommend stopping both at this time Metabolic acidosis secondary to acute kidney injury currently being corrected Hypotension, cortisol levels are being addressed Plan Continue rehydration Maintain Peres for strict I's and O's Oral bicarbonate per nephrology Avoid nephrotoxic agents and hypotensive episodes as previously stated metformin and ACEs will be and potassium will be held for now Will repeat labs daily including electrolytes potassium We'll continue to follow closely prognosis is guarded at this time
[2016-12-16] MEDS ORDERED: LISINOPRIL 20 MG TAB PO SCH (21:00)
[2016-12-16] MEDS: ATORVASTATIN 40 MG TAB PO SCH (21:17)
[2016-12-16] MEDS: SULFACETAMIDE SOD 10% OPHTH DROPS 15 ML BTL BOTH EYES SCH ×2 (21:17→23:39)
[2016-12-16] MEDS: TAMSULOSIN 0.4 MG CAP.ER.24H PO SCH (21:17)
[2016-12-17] MEDS ORDERED: SODIUM CHLORIDE 0.9% 500 ML IV ONE (02:53)
[2016-12-17 05:58] LABS: Glucose,Whole Blood 76 mg/dL (75-99)
[2016-12-17] MEDS: SULFACETAMIDE SOD 10% OPHTH DROPS 15 ML BTL BOTH EYES SCH ×4 (06:38→23:48)
[2016-12-17] MEDS: LEVOTHYROXINE 75 MCG TAB PO SCH (06:39)
[2016-12-17 06:54] LABS: Basophils % (A) 0 %; CHCM 32.9; Eosinophils % (A) 1 %
[2016-12-17 07:02] LABS: Calcium 8.1 mg/dL (8.4-10.2); Potassium 5.1 mmol/L (3.5-5.1)
[2016-12-17 07:11] LABS: CH 31.3; Eosinophils # (A) 0.1 k/uL (0-0.7); HCT 35.8 % (39.0-53.0); HDW 3.15; HGB 11.9 gm/dL (13.0-17.5); Luc # (Auto) 0.16; Luc % (Auto) 2; Lymphocytes # (A) 0.9 k/uL (1.0-4.8); Lymphocytes % (A) 14 %; MCH 31.7 pg (25.0-35.0); MCHC 33.2 g/dL (31.0-37.0); MCV 95.6 fL (80.0-100.0); Mean Platelet Volume 7.9; Monocytes # (A) 0.5 k/uL (0-1.0); Monocytes % (A) 8 %; Neutrophils # (A) 4.9 k/uL (1.3-7.7); Neutrophils % (A) 75 %; RBC 3.74 m/uL (4.30-5.90); WBC 6.5 k/uL (3.8-10.6); WBC (Perox) 6.71
[2016-12-17] MEDS ORDERED: POTASSIUM CHLORIDE ER 10 MEQ TAB.ER.PRT PO SCH (09:00)
--- NOTE | 2016-12-17 09:51 | P.PN ---
Subjective This is a 76-year-old male [facility] resident with dementia who came in because of hypotension. He was found to be in acute kidney injury. He is receiving IV fluids at 150 mL an hour. Patient is unable to give a good history remains confused but follows commands and is cheerful. His urine output has been documented at 300 mL only. His creatinine although has improved dramatically from 6 mg/dL to 2.9 may reflect dilution rather than real renal recovery. His vital signs still show hypotension pressures in the 8D systolics dated Workup has shown a chest x-ray is unremarkable, a central line has been placed. Urine and blood cultures are negative so far. Objective - Vital Signs Vital signs: Vital Signs Temp 97.0 F L 12/17/16 08:00 Pulse 82 12/17/16 08:00 Resp 18 12/17/16 08:00 BP 80/50 12/17/16 08:00 Pulse Ox 99 12/17/16 04:00 Intake & Output 12/16/16 12/17/16 12/17/16 18:59 06:59 18:59 Intake Total 1500 240 Output Total 300 Balance 1200 240 Weight 75.3 kg 76 kg Intake: Intake, IV Titration 1500 Amount Sodium Chloride 0.9% 1, 1000 000 ml @ 125 mls/hr IV . Q8H [facility] Rx#:[id number] Sodium Chloride 0.9% 500 500 ml @ 999 mls/hr IV .Q31M [facility] Rx#:[id number] Oral 240 Output: Urine 300 Other: Voiding Method Indwelling Catheter Indwelling Catheter Indwelling Catheter # Bowel Movements 0 On examination is awake alert disoriented. Follows commands. HEENT exam no JVP is noted neck is supple no facial asymmetry Lungs are clear to auscultation and percussion fair air entry bilaterally Heart sounds are unremarkable for any murmur rub gallop Abdomen soft nontender no masses felt Extremity exam was no edema Neurologically awake alert but disoriented follows commands and moves all his extremities but is very weak - Labs CBC & Chem 7: 12/17/16 06:09 12/17/16 06:09 Labs: Abnormal Lab Results - Last 24 Hours (Table) 12/17/16 12/17/16 Range/Units 06:09 06:09 RBC 3.74 L (4.30-5.90) m/uL Hgb 11.9 L (13.0-17.5) gm/dL Hct 35.8 L (39.0-53.0) % Lymphocytes # 0.9 L (1.0-4.8) k/uL Sodium 146 H (137-145) mmol/L Chloride 121 H* (98-107) mmol/L Carbon Dioxide 15 L (22-30) mmol/L BUN 85 H* (9-20) mg/dL Creatinine 2.90 H (0.66-1.25) mg/dL Calcium 8.1 L (8.4-10.2) mg/dL Microbiology - Last 24 Hours (Table) 12/16/16 06:30 Blood Culture - Preliminary Blood No Growth after 24 hours 12/16/16 07:20 Urine Culture - Preliminary Urine,Catheterized Assessment and Plan Plan: Impression. 1. Acute kidney injury from hypotension from volume depletion and medications. No evidence of any infectious disease etiology. Urine output remains low although creatinine is improved but it may reflect a dilutional effect other than a renal recovery. He may be in severe ATN and this might take a few days to resolve 2. Hypotension no acute [place] pneumonia or urinary tract infection so far. 3. Dementia. 4. Severe metabolic acidosis with bicarb of 12 and anion gap of 18 slightly improved to bicarb 15 anion gap is resolved and is at 10. Etiology is acute kidney injury. 5. Mild hypernatremia secondary to acute kidney injury and normal saline Recommendation. 1. Maintain current IV fluids at 150 an hour but if she does not improve by this evening it should be cut down 75 an hour to prevent him going into congestive heart failure as he is not responding with urine output. 2. Watch sodium, watch bicarb, maintain the sodium bicarb 1300 mg 3 times a day.
[2016-12-17] MEDS: predniSONE 10 MG TAB PO SCH (10:19)
[2016-12-17] MEDS: SODIUM BICARBONATE TAB 650 MG TAB PO SCH ×3 (10:19→21:42)
[2016-12-17] MEDS: CLOPIDOGREL 75 MG TAB PO SCH (10:19)
[2016-12-17] MEDS: SODIUM CHLORIDE 0.9% 1,000 ML IV SCH ×3 (10:20→21:43)
[2016-12-17 10:33] VITALS: BMI 25.4
[2016-12-17 11:34] LABS: Glucose,Whole Blood 72 mg/dL (75-99)
--- NOTE | 2016-12-17 14:11 | P.PN ---
Subjective Principal diagnosis: Hypotension dementia 76-year-old male assisted resident, with dementia. Presented to the emergency room from the assisted with hypotension. Found to be in acute kidney injury. Patient is a poor historian follows commands is happy and chatty. His urinary output has been marginal. Blood pressures have been in the 80s systolic. Patient has been eating marginally, drinking marginally, and stops taking his meds intermittently Objective - Vital Signs Vital signs: Vital Signs Temp 96.6 F L 12/17/16 11:21 Pulse 74 12/17/16 11:25 Resp 16 12/17/16 11:25 BP 86/51 12/17/16 11:21 Pulse Ox 99 12/17/16 11:21 Intake & Output 12/16/16 12/17/16 12/17/16 18:59 06:59 18:59 Intake Total 1500 480 Output Total 300 Balance 1200 480 Weight 75.3 kg 76 kg 76 kg Intake: Intake, IV Titration 1500 Amount Sodium Chloride 0.9% 1, 1000 000 ml @ 125 mls/hr IV . Q8H [facility] Rx#:[id number] Sodium Chloride 0.9% 500 500 ml @ 999 mls/hr IV .Q31M ONE Rx#:[id number] Oral 480 Output: Urine 300 Other: Voiding Method Indwelling Catheter Indwelling Catheter Indwelling Catheter # Bowel Movements 0 0 - Exam General: [Patient awake, alert . Patient in no acute distress.] HEENT: [PERRL. EOMI. No pharyngeal erythema or exudate.] Neck: [No adenopathy.] Cardiac: [Heart regular in rate and rhythm. No S3. No S4. No clicks, rubs. No murmur.] Lungs: [Clear to auscultation bilaterally.] Abdomen: [No mass. No organomegaly. Bowel sounds presnt and normoactive in all 4 quadrants.] Extremes: [No edema no cyanosis no claudication normal pulses] : [] Musculoskeletal: [No joint erythema, edema or tenderness.] Skin: [No rash.] Neurologic: [No lateralizing deficits. CN II - XII grossly intact.] Lymphatic: [No adenopathy.] - Labs CBC & Chem 7: 12/17/16 06:09 12/17/16 06:09 Labs: Abnormal Lab Results - Last 24 Hours (Table) 0812/17/16 12/17/16 Range/Units 06:09 06:09 11:29 RBC 3.74 L (4.30-5.90) m/uL Hgb 11.9 L (13.0-17.5) gm/dL Hct 35.8 L (39.0-53.0) % Lymphocytes # 0.9 L (1.0-4.8) k/uL Sodium 146 H (137-145) mmol/L Chloride 121 H* (98-107) mmol/L Carbon Dioxide 15 L (22-30) mmol/L BUN 85 H* (9-20) mg/dL Creatinine 2.90 H (0.66-1.25) mg/dL POC Glucose (mg/dL) 72 L (75-99) mg/dL Calcium 8.1 L (8.4-10.2) mg/dL Microbiology - Last 24 Hours (Table) 12/16/16 07:20 Urine Culture - Preliminary Urine,Catheterized Gram Neg Bacilli 12/16/16 06:30 Blood Culture - Preliminary Blood No Growth after 24 hours Assessment and Plan (1) Conjunctivitis Narrative/Plan: Acute Status: Acute (2) Acute kidney injury Narrative/Plan: Acute Status: Acute (3) Dehydration Narrative/Plan: Resolving Status: Acute (4) Acute renal insufficiency Narrative/Plan: Acute consulting nephrology Status: Acute (5) Failure to thrive in adult Narrative/Plan: Wound will consult and dietary and add nutritional supplementation Status: Acute Plan: Stop ANASTASIIA inhibitor as well as metformin Hyperkalemia secondary to acute kidney injury, potassium supplementation was also resumed in the assisted along with anastasiia we'll recommend stopping both at this time Metabolic acidosis secondary to acute kidney injury currently being corrected Hypotension, cortisol levels are being addressed Plan Continue rehydration Maintain Peres for strict I's and O's Oral bicarbonate per nephrology Avoid nephrotoxic agents and hypotensive episodes as previously stated metformin and ACEs will be and potassium will be held for now Will repeat labs daily including electrolytes potassium We'll continue to follow closely prognosis is guarded at this time
[2016-12-17] MEDS: FOLIC ACID 1 MG TAB PO SCH (14:51)
[2016-12-17] MEDS: METOPROLOL SUCCINATE (ER) 25 MG TAB.ER.24H PO SCH (14:52)
[2016-12-17 16:56] LABS: Glucose,Whole Blood 100 mg/dL (75-99)
[2016-12-17 20:43] LABS: Glucose,Whole Blood 96 mg/dL (75-99)
[2016-12-17] MEDS: TAMSULOSIN 0.4 MG CAP.ER.24H PO SCH (21:42)
[2016-12-17] MEDS: ATORVASTATIN 40 MG TAB PO SCH (21:42)
[2016-12-18 02:14] LABS: Glucose,Whole Blood 89 mg/dL (75-99)
[2016-12-18 06:03] LABS: Glucose,Whole Blood 103 mg/dL (75-99)
[2016-12-18] MEDS: LEVOTHYROXINE 75 MCG TAB PO SCH (06:08)
[2016-12-18] MEDS: SULFACETAMIDE SOD 10% OPHTH DROPS 15 ML BTL BOTH EYES SCH ×3 (06:08→18:21)
[2016-12-18 06:16] LABS: Basophils % (A) 1 %; CH 31.4; CHCM 33.5; Eosinophils # (A) 0.1 k/uL (0-0.7); Eosinophils % (A) 2 %; HCT 34.5 % (39.0-53.0); HGB 11.4 gm/dL (13.0-17.5); Luc # (Auto) 0.09; Luc % (Auto) 2; Lymphocytes # (A) 0.9 k/uL (1.0-4.8); Lymphocytes % (A) 17 %; MCH 31.4 pg (25.0-35.0); MCHC 33.2 g/dL (31.0-37.0); MCV 94.6 fL (80.0-100.0); Mean Platelet Volume 7.6; Monocytes # (A) 0.4 k/uL (0-1.0); Monocytes % (A) 8 %; Neutrophils # (A) 3.8 k/uL (1.3-7.7); Neutrophils % (A) 71 %; RBC 3.64 m/uL (4.30-5.90); RDW 15.2 % (11.5-15.5); WBC 5.3 k/uL (3.8-10.6); WBC (Perox) 5.64
[2016-12-18 06:47] LABS: Anion Gap 6 mmol/L; Blood Urea Nitrogen 48 mg/dL (9-20); Calcium 8.4 mg/dL (8.4-10.2); Carbon Dioxide 16 mmol/L (22-30); Glucose 104 mg/dL (74-99); Non-African American GFR(MDRD) 59 (>60 ml/min/1.73 sqM); Sodium 147 mmol/L (137-145)
[2016-12-18 07:00] LABS: Chloride 125 mmol/L (98-107); Potassium 6.3 mmol/L (3.5-5.1)
[2016-12-18] MEDS ORDERED: SODIUM POLYSTYRENE SULFONATE 15 GM/60 ML BOTTLE PO STA (08:08)
--- NOTE | 2016-12-18 09:23 | P.PN ---
Subjective This is a 76-year-old male assisted resident with dementia who came in because of hypotension. He was found to be in acute kidney injury. He is receiving IV fluids at 125 mL an hour. Patient is unable to give a good history remains confused but follows commands and is cheerful. His urine output has been documented at 1300 mL , improved from 300 L yesterday. His creatinine has improved dramatically from 6 mg/dL to 1.2 mg. His potassium though went up to 6.3 from 5.1. His vital signs still show hypotension pressures in the 90 to 110 systolics Workup has shown a chest x-ray is unremarkable, a central line has been placed. Urine culture is growing gram-negative bacilli, although urinalysis is not very suggestive of a urinary tract infection with only 4 WBCs seen. blood cultures are negative so far Objective - Vital Signs Vital signs: Vital Signs Temp 97.4 F L 12/18/16 04:00 Pulse 79 12/18/16 08:00 Resp 14 12/18/16 08:00 BP 112/69 12/18/16 08:00 Pulse Ox 100 12/18/16 08:00 Intake & Output 12/17/16 12/18/16 12/18/16 18:59 06:59 18:59 Intake Total 480 500 Output Total 1300 Balance 480 -800 Weight 76 kg 76 kg Intake: Intake, IV Titration 500 Amount Sodium Chloride 0.9% 1, 500 000 ml @ 125 mls/hr IV . Q8H [facility] Rx#:[id number] Oral 480 Output: Urine 1300 Other: Voiding Method Indwelling Catheter Indwelling Catheter Indwelling Catheter # Voids 1 # Bowel Movements 0 On examination is awake alert and is able to speak somewhat better although he is disoriented. He does follow commands HEENT exam no JVP neck is supple no facial asymmetry Lungs are clear to auscultation percussion good air entry bilaterally Heart sounds are unremarkable for any murmur rub gallop Abdomen is soft nontender Extremity exam no edema Neurologically as mentioned about was commands but disoriented. - Labs CBC & Chem 7: 12/18/16 06:04 12/18/16 06:04 Labs: Abnormal Lab Results - Last 24 Hours (Table) 12/17/16 12/17/16 12/18/16 Range/Units 11:29 16:52 06:02 RBC (4.30-5.90) m/uL Hgb (13.0-17.5) gm/dL Hct (39.0-53.0) % Lymphocytes # (1.0-4.8) k/uL Sodium (137-145) mmol/L Potassium (3.5-5.1) mmol/L Chloride (98-107) mmol/L Carbon Dioxide (22-30) mmol/L BUN (9-20) mg/dL Glucose (74-99) mg/dL POC Glucose (mg/dL) 72 L 100 H 103 H (75-99) mg/dL 12/18/16 12/18/16 Range/Units 06:04 06:04 RBC 3.64 L (4.30-5.90) m/uL Hgb 11.4 L (13.0-17.5) gm/dL Hct 34.5 L (39.0-53.0) % Lymphocytes # 0.9 L (1.0-4.8) k/uL Sodium 147 H (137-145) mmol/L Potassium 6.3 H* (3.5-5.1) mmol/L Chloride 125 H* (98-107) mmol/L Carbon Dioxide 16 L (22-30) mmol/L BUN 48 H (9-20) mg/dL Glucose 104 H (74-99) mg/dL POC Glucose (mg/dL) (75-99) mg/dL Microbiology - Last 24 Hours (Table) 12/16/16 06:30 Blood Culture - Preliminary Blood No Growth after 48 hours 12/16/16 07:20 Urine Culture - Preliminary Urine,Catheterized Gram Neg Bacilli Assessment and Plan Plan: Impression. 1. Acute kidney injury from hypotension from volume depletion and medications. No evidence of any infectious disease etiology. Urine output improved to 1300 mL and creatinine is down to 1.2 from a peak of 6.04. Responded to IV fluids. 2. Hypotension no acute [place] pneumonia or urinary tract infection is growing gram -negative is although the urinalysis is not very suggestive of cystitis . 3. Dementia. 4. Severe metabolic acidosis with bicarb of 12 and anion gap of 18 slightly improved to bicarb 16 anion gap is resolved and is 6 Etiology is acute kidney injury. 5. Mild hypernatremia secondary to acute kidney injury and normal saline. Sodium up to 147 6. Significant increase in potassium not very well explained, although he was on 10 mEq of potassium with improving creatinine and urine output aching up with normal saline potassium should not have been up, he has a Peres catheter therefore there is no obstructive element, and his blood sugars were normal. He is not on medications to explain this. Possible hemolysis. Recommendation. 1. Change normal saline to half normal saline because of the hypernatremia 2. Repeat electrolytes 3.. Watch sodium, watch bicarb, maintain the sodium bicarb 1300 mg 3 times a day.
[2016-12-18] MEDS: SODIUM CHLORIDE 0.9% 1,000 ML IV SCH (09:42)
[2016-12-18] MEDS: METOPROLOL SUCCINATE (ER) 25 MG TAB.ER.24H PO SCH (09:52)
[2016-12-18] MEDS: predniSONE 10 MG TAB PO SCH (09:52)
[2016-12-18] MEDS: SODIUM BICARBONATE TAB 650 MG TAB PO SCH ×3 (09:52→19:41)
[2016-12-18] MEDS: CLOPIDOGREL 75 MG TAB PO SCH (09:52)
[2016-12-18] MEDS: SODIUM CHLORIDE 0.45% 1,000 ML IV SCH (09:56)
[2016-12-18 11:33] LABS: Glucose,Whole Blood 125 mg/dL (75-99)
--- NOTE | 2016-12-18 13:25 | P.PN ---
Subjective Principal diagnosis: Hypotension dementia 76-year-old male longterm resident, with dementia. Presented to the emergency room from the longterm with hypotension. Found to be in acute kidney injury. Patient is a poor historian follows commands is happy and chatty. His urinary output has been marginal. Blood pressures have improved significantly, blood pressure today was 112/69. Patient oral intake has improved significantly, drinking improved, and currently taking his meds per recommendation. Objective - Vital Signs Vital signs: Vital Signs Temp 97.4 F L 12/18/16 04:00 Pulse 68 12/18/16 12:00 Resp 16 12/18/16 12:00 BP 107/65 12/18/16 12:00 Pulse Ox 98 12/18/16 12:00 Intake & Output 12/17/16 12/18/16 12/18/16 18:59 06:59 18:59 Intake Total 480 500 360 Output Total 1300 Balance 480 -800 360 Weight 76 kg 76 kg Intake: Intake, IV Titration 500 Amount Sodium Chloride 0.9% 1, 500 000 ml @ 125 mls/hr IV . Q8H [facility] Rx#:[id number] Oral 480 360 Output: Urine 1300 Other: Voiding Method Indwelling Catheter Indwelling Catheter Indwelling Catheter # Voids 1 # Bowel Movements 0 - Exam General: [Patient awake, alert . Patient in no acute distress.] HEENT: [PERRL. EOMI. No pharyngeal erythema or exudate.] Neck: [No adenopathy.] Cardiac: [Heart regular in rate and rhythm. No S3. No S4. No clicks, rubs. No murmur.] Lungs: [Clear to auscultation bilaterally.] Abdomen: [No mass. No organomegaly. Bowel sounds presnt and normoactive in all 4 quadrants.] Extremes: [No edema no cyanosis no claudication normal pulses] : [] Musculoskeletal: [No joint erythema, edema or tenderness.] Skin: [No rash.] Neurologic: [No lateralizing deficits. CN II - XII grossly intact.] Lymphatic: [No adenopathy.] - Labs CBC & Chem 7: 12/18/16 06:04 12/18/16 06:04 Labs: Abnormal Lab Results - Last 24 Hours (Table) 12/17/16 12/18/16 12/18/16 Range/Units 16:52 06:02 06:04 RBC 3.64 L (4.30-5.90) m/uL Hgb 11.4 L (13.0-17.5) gm/dL Hct 34.5 L (39.0-53.0) % Lymphocytes # 0.9 L (1.0-4.8) k/uL Sodium (137-145) mmol/L Potassium (3.5-5.1) mmol/L Chloride (98-107) mmol/L Carbon Dioxide (22-30) mmol/L BUN (9-20) mg/dL Glucose (74-99) mg/dL POC Glucose (mg/dL) 100 H 103 H (75-99) mg/dL 12/18/16 12/18/16 Range/Units 06:04 11:31 RBC (4.30-5.90) m/uL Hgb (13.0-17.5) gm/dL Hct (39.0-53.0) % Lymphocytes # (1.0-4.8) k/uL Sodium 147 H (137-145) mmol/L Potassium 6.3 H* (3.5-5.1) mmol/L Chloride 125 H* (98-107) mmol/L Carbon Dioxide 16 L (22-30) mmol/L BUN 48 H (9-20) mg/dL Glucose 104 H (74-99) mg/dL POC Glucose (mg/dL) 125 H (75-99) mg/dL Microbiology - Last 24 Hours (Table) 12/16/16 07:20 Urine Culture - Final Urine,Catheterized Escherichia coli 12/16/16 06:30 Blood Culture - Preliminary Blood No Growth after 48 hours Assessment and Plan (1) Conjunctivitis Status: Acute (2) Acute kidney injury Status: Acute (3) Dehydration Status: Acute (4) Acute renal insufficiency Status: Acute (5) Failure to thrive in adult Status: Acute Plan: Stop ANASTASIIA inhibitor as well as metformin Hyperkalemia secondary to acute kidney injury, potassium supplementation was also resumed in the longterm along with anastasiia we'll recommend stopping both at this time Metabolic acidosis secondary to acute kidney injury currently being corrected Hypotension, cortisol levels are being addressed Plan Continue rehydration Maintain Peres for strict I's and O's Oral bicarbonate per nephrology Avoid nephrotoxic agents and hypotensive episodes as previously stated metformin and ACEs will be and potassium will be held for now Will repeat labs daily including electrolytes potassium We'll continue to follow closely prognosis is guarded at this time
[2016-12-18 14:22] LABS: Anion Gap 8 mmol/L; Blood Urea Nitrogen 39 mg/dL (9-20); Calcium 8.3 mg/dL (8.4-10.2); Carbon Dioxide 16 mmol/L (22-30); Glucose 108 mg/dL (74-99); Non-African American GFR(MDRD) >60 (>60 ml/min/1.73 sqM); Potassium 5.2 mmol/L (3.5-5.1); Sodium 147 mmol/L (137-145)
[2016-12-18 14:26] LABS: Chloride 123 mmol/L (98-107)
[2016-12-18] MEDS: metFORMIN 500 MG TAB PO SCH (16:01)
[2016-12-18] MEDS: FOLIC ACID 1 MG TAB PO SCH (16:05)
[2016-12-18 16:41] LABS: Glucose,Whole Blood 137 mg/dL (75-99)
[2016-12-18] MEDS: ATORVASTATIN 40 MG TAB PO SCH (19:41)
[2016-12-18] MEDS: TAMSULOSIN 0.4 MG CAP.ER.24H PO SCH (19:41)
[2016-12-18 20:59] LABS: Glucose,Whole Blood 124 mg/dL (75-99)
[2016-12-19 01:54] LABS: Glucose,Whole Blood 97 mg/dL (75-99)
[2016-12-19] MEDS: SULFACETAMIDE SOD 10% OPHTH DROPS 15 ML BTL BOTH EYES SCH ×5 (02:50→22:03)
[2016-12-19] MEDS: SODIUM CHLORIDE 0.45% 1,000 ML IV SCH ×4 (04:56→16:01)
[2016-12-19 06:04] LABS: Glucose,Whole Blood 91 mg/dL (75-99)
[2016-12-19] MEDS: LEVOTHYROXINE 75 MCG TAB PO SCH (06:16)
[2016-12-19 06:30] LABS: Basophils % (A) 0 %; CH 31.2; CHCM 32.2; Eosinophils # (A) 0.1 k/uL (0-0.7); Eosinophils % (A) 1 %; HCT 33.2 % (39.0-53.0); HDW 3.08; HGB 10.8 gm/dL (13.0-17.5); Hypochromasia Slight; Luc # (Auto) 0.08; Luc % (Auto) 2; Lymphocytes # (A) 1.2 k/uL (1.0-4.8); Lymphocytes % (A) 23 %; MCH 31.7 pg (25.0-35.0); MCHC 32.4 g/dL (31.0-37.0); MCV 97.6 fL (80.0-100.0); Mean Platelet Volume 7.9; Monocytes # (A) 0.4 k/uL (0-1.0); Monocytes % (A) 7 %; Neutrophils # (A) 3.5 k/uL (1.3-7.7); Neutrophils % (A) 67 %; RDW 14.8 % (11.5-15.5); WBC 5.3 k/uL (3.8-10.6); WBC (Perox) 5.35
[2016-12-19 06:38] LABS: Anion Gap 8 mmol/L; Blood Urea Nitrogen 32 mg/dL (9-20); Calcium 8.3 mg/dL (8.4-10.2); Carbon Dioxide 18 mmol/L (22-30); Glucose 91 mg/dL (74-99); Non-African American GFR(MDRD) >60 (>60 ml/min/1.73 sqM); Potassium 4.3 mmol/L (3.5-5.1); Sodium 147 mmol/L (137-145)
[2016-12-19 06:43] LABS: Chloride 121 mmol/L (98-107)
[2016-12-19] MEDS: metFORMIN 500 MG TAB PO SCH ×2 (09:01→17:53)
--- NOTE | 2016-12-19 09:09 | P.PN ---
Subjective Patient is seen in follow-up for acute kidney injury and hypernatremia. Renal injury has resolved and creatinine is down to 0.9 today. Sodium level is stable at 147. Patient's currently resting in bed. He is not a very reliable historian. He is a Peres catheter in place and has been voiding. Hemodynamically stable. Oral intake remains poor. Patient refused to have breakfast this morning. Vital signs are stable. General: The patient appeared well nourished and normally developed. HEENT: Head exam is unremarkable. Neck is without jugular venous distension. LUNGS: Lungs are clear to auscultation and percussion. Breath sounds decreased. HEART: Rate and Rhythm are regular. First and second heart sounds normal. No murmurs, rubs or gallops. ABDOMEN: Abdominal exam reveals normal bowel sounds. Non-tender and non- distended. No evidence of peritonitis. EXTREMITITES: No clubbing, cyanosis, or edema. Objective - Vital Signs Vital signs: Vital Signs Temp 98.6 F 12/19/16 04:00 Pulse 62 12/19/16 04:00 Resp 18 12/19/16 04:00 BP 112/57 12/19/16 04:00 Pulse Ox 98 12/19/16 04:00 Intake & Output 12/18/16 12/19/16 12/19/16 18:59 06:59 18:59 Intake Total 360 Balance 360 Weight 76.9 kg Intake: Oral 360 Other: Voiding Method Indwelling Catheter Indwelling Catheter # Bowel Movements 1 - Labs CBC & Chem 7: 12/19/16 05:57 12/19/16 05:57 Labs: Abnormal Lab Results - Last 24 Hours (Table) 12/18/16 12/18/16 12/18/16 Range/Units 11:31 13:57 16:37 RBC (4.30-5.90) m/uL Hgb (13.0-17.5) gm/dL Hct (39.0-53.0) % Sodium 147 H (137-145) mmol/L Potassium 5.2 H (3.5-5.1) mmol/L Chloride 123 H* (98-107) mmol/L Carbon Dioxide 16 L (22-30) mmol/L BUN 39 H (9-20) mg/dL Glucose 108 H (74-99) mg/dL POC Glucose (mg/dL) 125 H 137 H (75-99) mg/dL Calcium 8.3 L (8.4-10.2) mg/dL 12/18/16 12/19/16 12/19/16 Range/Units 20:58 05:57 05:57 RBC 3.40 L (4.30-5.90) m/uL Hgb 10.8 L (13.0-17.5) gm/dL Hct 33.2 L (39.0-53.0) % Sodium 147 H (137-145) mmol/L Potassium (3.5-5.1) mmol/L Chloride 121 H* (98-107) mmol/L Carbon Dioxide 18 L (22-30) mmol/L BUN 32 H (9-20) mg/dL Glucose (74-99) mg/dL POC Glucose (mg/dL) 124 H (75-99) mg/dL Calcium 8.3 L (8.4-10.2) mg/dL Microbiology - Last 24 Hours (Table) 12/16/16 06:30 Blood Culture - Preliminary Blood No Growth after 72 hours 12/16/16 07:20 Urine Culture - Final Urine,Catheterized Escherichia coli Assessment and Plan Plan: Assessment: #1. Nonoliguric acute kidney injury secondary to ischemic ATN secondary to hypotension and further worsened with the use of ANASTASIIA inhibitor. Patient was also on metformin 1 g twice a day which is now held. Urinalysis is quite benign. Improved. #2. Hyperkalemia secondary to acute kidney injury and metabolic acidosis. Further worsened from the use of potassium supplementation as well as use of ANASTASIIA inhibitor at home. Improved. #3. Anion gap metabolic acidosis secondary to acute kidney injury. #4. Hypotension. Improved. Cortisol level normal. #5. Hypernatremia secondary to lack of oral water intake. Plan: Increase half-normal saline to be run at 100 mL an hour. Encourage oral intake. Appeared to DC Peres catheter. Maintain oral sodium bicarbonate 1300 mg 3 times daily. Avoid nephrotoxic agents and hypotensive episodes. Metformin, ANASTASIIA inhibitor as well as potassium supplementation held for now. Repeat electrolytes in the morning.
[2016-12-19] MEDS: METOPROLOL SUCCINATE (ER) 25 MG TAB.ER.24H PO SCH (09:29)
[2016-12-19] MEDS: CLOPIDOGREL 75 MG TAB PO SCH (09:29)
[2016-12-19] MEDS: predniSONE 10 MG TAB PO SCH (09:30)
[2016-12-19] MEDS: SODIUM BICARBONATE TAB 650 MG TAB PO SCH ×3 (09:30→22:07)
--- NOTE | 2016-12-19 11:23 | P.DS ---
Providers Date of admission: 12/16/16 08:40 Expected date of discharge: 12/19/16 Attending physician: Reginald Spann Consults: 12/16/16 08:40 Consult Physician Stat Consulting Provider: John Harrison Consult Reason/Comments: Subclavian vein injury. Vascular access. Do you want consulting provider notified?: Already Contacted 12/16/16 08:41 Consult Physician Routine Consulting Provider: Edith Doe Consult Reason/Comments: acute renal failure Do you want consulting provider notified?: Yes Primary care physician: Reginald Spann - Discharge Diagnosis(es) (1) Urinary tract infection Urine culture shows E. coli. Patient to be discharged on antibiotics Status: Acute (2) Acute kidney injury Secondary to ischemic ATN secondary to hypotension and further worsened with the use of an ANASTASIIA inhibitor and metformin. 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 It was noted that the patient 's blood [facility] the [facility] was 70/50. The patient was receiving anastasiia inhibitors, metformin, and potassium supplementation at the [facility]. The patient also had not been eating or drinking adequately. The patient had a central line inserted and was given IV hydration. Patient's blood pressure has improved and is now stable. His creatinine upon admission was 6.04. His acute kidney injury has resolved and his creatinine is down to 0.9 this morning. His sodium level was slightly elevated but has remained stable at 147 this morning. Patient also was admitted with hyperkalemia with a potassium of 5.8. This has since resolved and potassium its morning was 4.3. Nephrology stopped the patient ANASTASIIA inhibitor, metformin, and potassium supplementation. These medications are to remain on hold at the [facility]. Oral bicarbonate was ordered per nephrology, who recommended discharging patient with oral bicarb supplementation. The patient's urine culture from 12/16/[address]. Dr. Spann recommends discharging patient on amoxicillin. The patient continues to have poor oral intake and refused his morning breakfast or medications per nursing. Dr. Spann recommends hospice consult once patient is back at the [facility]. The above impression and plan of care have been discussed and directed by signing physician. Celsa Monterroso, nurse practitioner, acting as scribe for signing physician. Patient Condition at Discharge: Stable Plan - Discharge Summary New Discharge Prescriptions: New Sodium Bicarbonate Tab 1,300 mg PO TID tab Sulfacetamide 10% Ophth Soln [Bleph-10] 2 drops BOTH EYES Q6HR bottle Amoxicillin 500 mg PO BID #14 capsule Continue Tamsulosin HCl [Flomax] 0.4 mg PO HS Levothyroxine Sodium [Synthroid] 75 mcg PO DAILY Folic Acid 1 mg PO DAILY Clopidogrel [Plavix] 75 mg PO DAILY Atorvastatin [Lipitor] 40 mg PO HS glipiZIDE XL [Glucotrol XL] 5 mg PO DAILY Metoprolol Succinate [Toprol XL] 25 mg PO DAILY Cyclobenzaprine [Flexeril] 10 mg PO TID PRN PRN Reason: Pain Acetaminophen Tab [Tylenol] 650 mg PO Q6H PRN PRN Reason: Pain predniSONE 10 mg PO DAILY Discontinued metFORMIN HCL 1,000 mg PO BID Lisinopril 20 mg PO BID Potassium Chloride ER [K-Dur 10] 10 meq PO DAILY Discharge Medication List Atorvastatin [Lipitor] 40 mg PO HS 01/18/16 [History] Clopidogrel [Plavix] 75 mg PO DAILY 01/18/16 [History] Folic Acid 1 mg PO DAILY 01/18/16 [History] Levothyroxine Sodium [Synthroid] 75 mcg PO DAILY 01/18/16 [History] Tamsulosin HCl [Flomax] 0.4 mg PO HS 01/18/16 [History] Cyclobenzaprine [Flexeril] 10 mg PO TID PRN 11/07/16 [History] Metoprolol Succinate [Toprol XL] 25 mg PO DAILY 11/07/16 [History] glipiZIDE XL [Glucotrol XL] 5 mg PO DAILY 11/07/16 [History] Acetaminophen Tab [Tylenol] 650 mg PO Q6H PRN 11/29/16 [History] predniSONE 10 mg PO DAILY 12/16/16 [History] Amoxicillin 500 mg PO BID #14 capsule 12/19/16 [Rx] Sodium Bicarbonate Tab 1,300 mg PO TID tab 12/19/16 [Rx] Sulfacetamide 10% Ophth Soln [Bleph-10] 2 drops BOTH EYES Q6HR bottle 12/19/16 [Rx] Follow up Appointment(s)/Referral(s): Reginlad Spann MD [Primary Care Provider] - 1-2 days Edith Doe MD [STAFF PHYSICIAN] - 2 Weeks Discharge Disposition: TRANSFER TO SNF/ECF
[2016-12-19 11:36] LABS: Glucose,Whole Blood 88 mg/dL (75-99)
[2016-12-19] MEDS: FOLIC ACID 1 MG TAB PO SCH (14:05)
[2016-12-19 16:49] LABS: Glucose,Whole Blood 88 mg/dL (75-99)
[2016-12-19 20:37] LABS: Glucose,Whole Blood 81 mg/dL (75-99)
[2016-12-19] MEDS: ATORVASTATIN 40 MG TAB PO SCH (22:03)
[2016-12-19] MEDS: TAMSULOSIN 0.4 MG CAP.ER.24H PO SCH (22:03)
[2016-12-20 03:09] LABS: Glucose,Whole Blood 75 mg/dL (75-99)
[2016-12-20] MEDS: SODIUM CHLORIDE 0.45% 1,000 ML IV SCH ×2 (05:05→13:15)
[2016-12-20] MEDS: SULFACETAMIDE SOD 10% OPHTH DROPS 15 ML BTL BOTH EYES SCH ×2 (06:09→13:15)
[2016-12-20 07:35] LABS: Glucose,Whole Blood 78 mg/dL (75-99)
[2016-12-20 07:45] LABS: Anion Gap 9 mmol/L; Blood Urea Nitrogen 23 mg/dL (9-20); Calcium 8.4 mg/dL (8.4-10.2); Carbon Dioxide 20 mmol/L (22-30); Chloride 119 mmol/L (98-107); Glucose 71 mg/dL (74-99); Non-African American GFR(MDRD) >60 (>60 ml/min/1.73 sqM); Potassium 3.9 mmol/L (3.5-5.1); Sodium 148 mmol/L (137-145)
[2016-12-20 07:50] VITALS: BP 123/64; PULSE 63; RESP 18; TEMP 98.6
[2016-12-20] MEDS: LEVOTHYROXINE 75 MCG TAB PO SCH (08:43)
[2016-12-20] MEDS: metFORMIN 500 MG TAB PO SCH (08:43)
[2016-12-20] MEDS: CLOPIDOGREL 75 MG TAB PO SCH (08:44)
[2016-12-20] MEDS: predniSONE 10 MG TAB PO SCH (08:44)
[2016-12-20] MEDS: METOPROLOL SUCCINATE (ER) 25 MG TAB.ER.24H PO SCH (08:44)
[2016-12-20] MEDS: SODIUM BICARBONATE TAB 650 MG TAB PO SCH (08:44)
--- NOTE | 2016-12-20 09:47 | P.PN ---
Subjective Patient is seen in follow-up for acute kidney injury and hypernatremia. Renal injury has resolved and creatinine is down to 0.92 today. Sodium level is 148. Patient's currently resting in bed. He is not a very reliable historian. He is a Peres catheter in place and has been voiding. Hemodynamically stable. Oral intake remains poor. Patient is not on any IV fluids as he is refusing IV access. Vital signs are stable. General: The patient appeared well nourished and normally developed. HEENT: Head exam is unremarkable. Neck is without jugular venous distension. LUNGS: Lungs are clear to auscultation and percussion. Breath sounds decreased. HEART: Rate and Rhythm are regular. First and second heart sounds normal. No murmurs, rubs or gallops. ABDOMEN: Abdominal exam reveals normal bowel sounds. Non-tender and non- distended. No evidence of peritonitis. EXTREMITITES: No clubbing, cyanosis, or edema. Objective - Vital Signs Vital signs: Vital Signs Temp 98.6 F 12/20/16 07:00 Pulse 63 12/20/16 07:00 Resp 18 12/20/16 08:00 BP 123/64 12/20/16 07:00 Pulse Ox 98 12/20/16 07:00 Intake & Output 12/19/16 12/20/16 12/20/16 18:59 06:59 18:59 Intake Total 200 Output Total 625 200 Balance -625 0 Intake: Intake, IV Titration 0 Amount Sodium Chloride 0.45% 1, 0 000 ml @ 100 mls/hr IV . Q10H [facility] Rx#:[id number] Oral 200 Output: Urine 625 200 Other: Voiding Method Indwelling Catheter Indwelling Catheter Indwelling Catheter # Voids 1 - Labs CBC & Chem 7: 12/19/16 05:57 12/20/16 06:54 Labs: Abnormal Lab Results - Last 24 Hours (Table) 12/20/16 Range/Units 06:54 Sodium 148 H (137-145) mmol/L Chloride 119 H (98-107) mmol/L Carbon Dioxide 20 L (22-30) mmol/L BUN 23 H (9-20) mg/dL Glucose 71 L (74-99) mg/dL Microbiology - Last 24 Hours (Table) 12/16/16 06:30 Blood Culture - Preliminary Blood No Growth after 96 hours Assessment and Plan Plan: Assessment: #1. Nonoliguric acute kidney injury secondary to ischemic ATN secondary to hypotension and further worsened with the use of ANASTASIIA inhibitor. Patient was also on metformin 1 g twice a day which is now held. Urinalysis is quite benign. Improved. #2. Hyperkalemia secondary to acute kidney injury and metabolic acidosis. Further worsened from the use of potassium supplementation as well as use of ANASTASIIA inhibitor at home. Improved. #3. Anion gap metabolic acidosis secondary to acute kidney injury. #4. Hypotension. Improved. Cortisol level normal. #5. Hypernatremia secondary to lack of oral water intake. Plan: Patient refusing IV access therefore off all IV fluids. Encouraged oral intake. Maintain oral sodium bicarbonate 1300 mg 3 times daily. Avoid nephrotoxic agents and hypotensive episodes. Metformin, ANASTASIIA inhibitor as well as potassium supplementation held for now. Potential home with hospice today.
--- NOTE | 2016-12-20 11:15 | P.PN ---
Progress Note - Text Patient seen and examined this morning on rounds with Dr. Spann. Patient continues to refuse medications and yelling at staff that he just wants to be left alone. Dr. Spann to consult hospice at the [facility]. Patient is medically cleared for discharge and discharge orders completed. Patient was to be discharged to [facility] yesterday but currently on hold due to authorization from insurance company. Case management and social work continuing to work on authorization for discharge.
[2016-12-20 11:30] LABS: Glucose,Whole Blood 79 mg/dL (75-99)
[2016-12-20] MEDS: FOLIC ACID 1 MG TAB PO SCH (13:15)
== END 2016-12-20 14:25 | DRG 683 ==
LOC: EC 05:21 → 6SEL 08:40 → 5MS5E 12-19 22:54
PROVIDERS: ADMIT Family Medicine; ATTEND Family Medicine
PROC: 05HM33Z Insertion of Infusion Device into Right Internal Jugular Vein, Percutaneous Approach (ICD-10-PCS; principal; 2016-12-16)
PROC: 03H333Z Insertion of Infusion Device into Right Subclavian Artery, Percutaneous Approach (ICD-10-PCS; 2016-12-16)
PROC: 03PYX3Z Removal of Infusion Device from Upper Artery, External Approach (ICD-10-PCS; 2016-12-16)
DX: N17.0 Acute kidney failure with tubular necrosis (principal); E87.2 Acidosis; I95.9 Hypotension, unspecified; E87.0 Hyperosmolality and hypernatremia; E87.5 Hyperkalemia; N39.0 Urinary tract infection, site not specified; F03.90 Unspecified dementia, unspecified severity, without behavioral disturbance, psychotic disturbance, mood disturbance, and anxiety; I45.2 Bifascicular block; E11.9 Type 2 diabetes mellitus without complications; E86.0 Dehydration; T46.4X5A Adverse effect of angiotensin-converting-enzyme inhibitors, initial encounter; B96.20 Unspecified Escherichia coli [E. coli] as the cause of diseases classified elsewhere; I10 Essential (primary) hypertension; T50.3X5A Adverse effect of electrolytic, caloric and water-balance agents, initial encounter; T38.3X5A Adverse effect of insulin and oral hypoglycemic [antidiabetic] drugs, initial encounter; F32.9 Major depressive disorder, single episode, unspecified; H10.9 Unspecified conjunctivitis; R74.8 Abnormal levels of other serum enzymes; N40.0 Benign prostatic hyperplasia without lower urinary tract symptoms; R00.0 Tachycardia, unspecified; R62.7 Adult failure to thrive; Z79.899 Other long term (current) drug therapy; Z79.02 Long term (current) use of antithrombotics/antiplatelets; Z95.1 Presence of aortocoronary bypass graft; Z71.3 Dietary counseling and surveillance; Z68.25 Body mass index [BMI] 25.0-25.9, adult; Z79.84 Long term (current) use of oral hypoglycemic drugs; Z79.52 Long term (current) use of systemic steroids; Z86.79 Personal history of other diseases of the circulatory system; Z86.69 Personal history of other diseases of the nervous system and sense organs
CPT/HCPCS: 36415; 36556; 71010; 80048; 80053; 81001; 82533; 83605; 83735; 84132; 84484; 85025; 85610; 85730; 87040; 87077; 87086; 87186; 93005; 96361; 96365; 96375; 99285